=== PATIENT | male | born 1970 | race Caucasian/White ===

== ENCOUNTER 2017-11-26 09:43 | Inpatient (IN) | payer MEDICARE, OTHER ==
[~2017-11-26] VITALS: Ht 180.3 cm; Wt 73.3 kg
[~2017-11-26 09:43] MED LIST: LISI2.5T47 PO; MET50T PO; OXYC10TA44 PO; ZOLP10TA PO
[2017-11-26] MEDS ORDERED: SODIUM CHLORIDE 0.9% 1,000 ML IV ONE ×2 (10:15)
[2017-11-26] MEDS ORDERED: IOHEXOL 300 MG/ML 100ML BOTTLE IJ ONE (10:30)
[2017-11-26 10:38] LABS: Basophils # (auto) 0.1 uL; Eosinophils # (auto) 0.1 uL; Monocytes # (auto) 0.7 uL
[2017-11-26 10:41] LABS: Basophils % (auto) 0.4 % (0.0-2.0); Eosinophils % (auto) 0.5 % (0.0-7.0); Hematocrit 50.6 % (41.0-53.0); Hemoglobin 17.2 g/dL (13.5-17.5); Lymphocytes % (auto) 6.5 % (10.0-50.0); Mean Corpuscular Hemoglobin 28.3 pg (28.0-32.0); Mean Corpuscular Volume 83.2 fL (80.0-100.0); Monocytes % (auto) 4.6 % (0.0-12.0); Neutrophils # (auto) 13.5 uL; Nucleated Red Blood Cells % 0.4 %; Platelet Count (auto) 309 10^3/uL (140-450); Red Blood Cells 6.09 10^6/uL (4.5-5.90); Red Cell Distribution Width 14.1 % (11.8-14.3); White Blood Cell 15.3 10^3/uL (4.4-10.8)
[2017-11-26 10:50] LABS: INR 0.92 (0.9-1.15); Partial Thromboplastin Time 24.3 sec (22.64-33.71)
[2017-11-26] MEDS ORDERED: NALBUPHINE HCL 10 MG/1ml INJECTION IV ONE ×2 (11:15→14:00)
[2017-11-26 11:17] LABS: Alanine Aminotransferase 17 U/L (16-61); Albumin 3.8 g/dL (3.4-5.0); Alkaline Phosphatase 139 U/L (45-117); Anion Gap 13 (5-15); Aspartate Aminotransferase 20 U/L (15-37); BUN/Creatinine Ratio 9.8; Bilirubin, Total 0.8 mg/dL (0.2-1.0); Blood Urea Nitrogen 8 mg/dL (7-18); Calcium 8.9 mg/dL (8.5-10.1); Carbon Dioxide 25 mmol/L (21-32); Chloride 98 mmol/L (98-107); GFR African American 131 mL/min; GFR Non-African American 108 mL/min; Glucose 396 mg/dL (74-106); Lipase 97 U/L (73-393); Sodium 136 mmol/L (136-145); Total Protein 7.7 g/dL (6.4-8.2)
[2017-11-26] MEDS ORDERED: VANCOMYCIN 1GM/250ML 250 ML IV ONE (11:30)
[2017-11-26] MEDS ORDERED: GASTROGRAFIN 120 ML SOL ONE (11:31)
[2017-11-26] MEDS ORDERED: InsuLIN REG 1unit/0.01ml Soln (100units/ml) SC ONE (11:45)
[2017-11-26 12:10] LABS: Urine Bacteria NONE SEEN /hpf (None Seen); Urine Blood Negative /uL (Negative); Urine WBC <1 /hpf (0 - 3)
[2017-11-26] MEDS ORDERED: SODIUM CHLORIDE 0.9% 1,000 ML IV SCH (13:53)
[2017-11-26] MEDS ORDERED: ONDANSETRON HCL 4 MG/2 ML VIAL IV PRN (14:00)
[2017-11-26] MEDS ORDERED: MORPHINE SULFATE 4 MG/ML SYR/VIAL IV PRN (14:00)
[2017-11-26] MEDS ORDERED: VANCOMYCIN PER PHARMACY 0 MG IV SCH (14:15)
[2017-11-26] MEDS ORDERED: LEVOFLOXACIN 500MG 100 ML IV ONE (14:15)
[2017-11-26] MEDS ORDERED: DEXTROSE (50%) 50ML SYRG IV PRN (14:15)
[2017-11-26 14:32] VITALS: BP 100/80
[2017-11-26] MEDS ORDERED: PANTOPRAZOLE 40 MG/10 ML VIAL IV ONE (14:45)
[2017-11-26] MEDS ORDERED: FAMOTIDINE (10MG/ML) 2ML VL IV ONE (14:45)
[2017-11-26] MEDS ORDERED: SODIUM CHLORIDE 0.9% 2,000 ML IV ONE (14:45)
[2017-11-26] MEDS ORDERED: VANCOMYCIN 1GM/250ML 250 ML IV SCH (15:00)
[2017-11-26] MEDS: SODIUM CHLORIDE 0.9% 1,000 ML IV SCH (17:12)
[2017-11-26] MEDS: InsuLIN REG 1unit/0.01ml Soln (100units/ml) SC SCH ×2 (17:51→23:58)
[2017-11-26] MEDS: ACCU-CHEK COMFORT CURVE STRIP VI SCH ×2 (17:51→23:58)
[2017-11-26] MEDS: IPRATROPIUM BROM 0.5 MG/2.5ML INH SOL NEB SCH (18:00)
[2017-11-26] MEDS: ALBUTEROL SULF 2.5 MG/0.5ML(0.5%) NEB SOLN NEB SCH (18:00)
[2017-11-26] MEDS: NALBUPHINE HCL 10 MG/1ml INJECTION IV PRN (20:23)
[2017-11-26] MEDS: VANCOMYCIN 1GM/250ML 250 ML IV SCH (20:23)
[2017-11-26] MEDS ORDERED: METOPROLOL TARTRATE 1MG/1ML-5ML VIAL IV ONE (23:15)
[2017-11-27] VITALS (7 sets, daily range): BP systolic 112–148; BP diastolic 67–88
[2017-11-27] MEDS: SODIUM CHLORIDE 0.9% 1,000 ML IV SCH ×4 (01:22→21:08)
[2017-11-27] MEDS: NALBUPHINE HCL 10 MG/1ml INJECTION IV PRN ×5 (02:20→20:53)
[2017-11-27] MEDS: VANCOMYCIN 1GM/250ML 250 ML IV SCH (04:30)
[2017-11-27] MEDS: InsuLIN REG 1unit/0.01ml Soln (100units/ml) SC SCH ×3 (06:03→17:43)
[2017-11-27] MEDS: ACCU-CHEK COMFORT CURVE STRIP VI SCH ×3 (06:03→17:43)
[2017-11-27 06:06] LABS: Basophils # (auto) 0.1 uL; Basophils % (auto) 0.8 % (0.0-2.0); Eosinophils # (auto) 0.2 uL; Hematocrit 43.3 % (41.0-53.0); Hemoglobin 14.6 g/dL (13.5-17.5); Lymphocytes # (auto) 1.1 uL; Lymphocytes % (auto) 13.3 % (10.0-50.0); Mean Corpuscular Hemoglobin 28.5 pg (28.0-32.0); Mean Corpuscular Hgb Conc. 33.8 g/dL (32.0-36.0); Mean Corpuscular Volume 84.4 fL (80.0-100.0); Monocytes # (auto) 0.6 uL; Monocytes % (auto) 7.7 % (0.0-12.0); Neutrophils # (auto) 6.2 uL; Neutrophils % (auto) 76.2 % (37.0-80.0); Platelet Count (auto) 253 10^3/uL (140-450); Red Blood Cells 5.13 10^6/uL (4.5-5.90); Red Cell Distribution Width 14.2 % (11.8-14.3); White Blood Cell 8.1 10^3/uL (4.4-10.8)
[2017-11-27] MEDS: ALBUTEROL SULF 2.5 MG/0.5ML(0.5%) NEB SOLN NEB SCH ×5 (06:23→23:58)
[2017-11-27] MEDS: IPRATROPIUM BROM 0.5 MG/2.5ML INH SOL NEB SCH ×5 (06:23→23:58)
[2017-11-27 06:31] LABS: Albumin 3.1 g/dL (3.4-5.0); BUN/Creatinine Ratio 8.8; Bilirubin, Total 0.9 mg/dL (0.2-1.0); Calcium 7.9 mg/dL (8.5-10.1); Potassium 3.3 mmol/L (3.5-5.1); Total Protein 6.2 g/dL (6.4-8.2)
[2017-11-27] MEDS: PANTOPRAZOLE 40 MG/10 ML VIAL IV SCH (10:00)
[2017-11-27] MEDS: LEVOFLOXACIN 500MG 100 ML IV SCH (10:00)
[2017-11-27] MEDS: POTASSIUM CHL 20MEQ/100ML 100 ML IV SCH ×2 (12:21→14:54)
[2017-11-27] MEDS: metroNIDAZOLE 500MG/100ML 100 ML IV SCH ×2 (16:48→22:23)
[2017-11-27] MEDS ORDERED: FAMOTIDINE (10MG/ML) 2ML VL IV SCH (22:00)
[2017-11-28] MEDS: NALBUPHINE HCL 10 MG/1ml INJECTION IV PRN ×2 (03:00→08:43)
[2017-11-28 04:49] VITALS: BP 128/71
[2017-11-28] MEDS: metroNIDAZOLE 500MG/100ML 100 ML IV SCH (05:56)
[2017-11-28] MEDS: InsuLIN REG 1unit/0.01ml Soln (100units/ml) SC SCH ×3 (06:09→11:50)
[2017-11-28] MEDS: ACCU-CHEK COMFORT CURVE STRIP VI SCH ×3 (06:09→11:51)
[2017-11-28] MEDS: ALBUTEROL SULF 2.5 MG/0.5ML(0.5%) NEB SOLN NEB SCH ×2 (06:25→12:00)
[2017-11-28] MEDS: IPRATROPIUM BROM 0.5 MG/2.5ML INH SOL NEB SCH ×2 (06:25→12:00)
[2017-11-28 08:06] LABS: Basophils # (auto) 0.1 uL; Basophils % (auto) 0.8 % (0.0-2.0); Eosinophils # (auto) 0.2 uL; Eosinophils % (auto) 3.7 % (0.0-7.0); Hematocrit 42.2 % (41.0-53.0); Hemoglobin 14.3 g/dL (13.5-17.5); Lymphocytes # (auto) 1.2 uL; Lymphocytes % (auto) 19.4 % (10.0-50.0); Mean Corpuscular Hemoglobin 28.8 pg (28.0-32.0); Mean Corpuscular Hgb Conc. 33.9 g/dL (32.0-36.0); Mean Corpuscular Volume 84.9 fL (80.0-100.0); Monocytes # (auto) 0.6 uL; Monocytes % (auto) 9.8 % (0.0-12.0); Neutrophils # (auto) 4.2 uL; Neutrophils % (auto) 66.3 % (37.0-80.0); Nucleated Red Blood Cells % 0.2 %; Platelet Count (auto) 225 10^3/uL (140-450); Red Blood Cells 4.96 10^6/uL (4.5-5.90); Red Cell Distribution Width 14.3 % (11.8-14.3); White Blood Cell 6.4 10^3/uL (4.4-10.8)
[2017-11-28 08:15] LABS: Anion Gap 8 (5-15); Blood Urea Nitrogen 2 mg/dL (7-18); Calcium 8.2 mg/dL (8.5-10.1); Carbon Dioxide 27 mmol/L (21-32); Chloride 105 mmol/L (98-107); Cholesterol 223 mg/dL (< 200); GFR African American 168 mL/min; GFR Non-African American 139 mL/min; Glucose 238 mg/dL (74-106); HDL Cholesterol 31 mg/dL (40-59); Magnesium 2.5 mg/dL (1.6-2.6); Potassium 3.5 mmol/L (3.5-5.1); Sodium 140 mmol/L (136-145); Triglycerides 494 mg/dL (< 150)
[2017-11-28 09:00] VITALS: BP 123/70
[2017-11-28] MEDS: SODIUM CHLORIDE 0.9% 1,000 ML IV SCH (09:17)
[2017-11-28] MEDS: LEVOFLOXACIN 500MG 100 ML IV SCH (09:17)
[2017-11-28] MEDS: PANTOPRAZOLE 40 MG/10 ML VIAL IV SCH (09:17)
[2017-11-28] MEDS ORDERED: PANT40TA2 PO (11:40)
[2017-11-28] MEDS ORDERED: ATOR20TA PO (11:40)
[2017-11-28] MEDS ORDERED: POTASSIUM CHL 20 Meq TABLET PO ONE (11:45)
[2017-11-28] MEDS ORDERED: SODIUM CHLORIDE 0.9% 1,000 ML IV SCH (11:45)
[2017-11-28 12:59] VITALS: BP 123/70
[2017-11-28 14:00] VITALS: BP 126/86
[2017-11-28] MEDS ORDERED: PANTOPRAZOLE 40 MG TAB PO SCH (22:00)
[2018-01-29] MEDS ORDERED: METF500T PO (10:58)
[2018-01-29] MEDS ORDERED: GABA-339 PO (10:58)
[2018-01-29] MEDS ORDERED: DIAZ10TA PO (11:01)
[2018-01-29] MEDS ORDERED: IBUP800T24 PO (11:01)
[2018-01-29] MEDS ORDERED: HYDR-531 PO (11:02)
== END 2017-11-28 15:33 | disposition home health service (06) | DRG 872 ==
LOC: ER 09:43 → EDBD 09:43 → TELE 09:44 → TELE-CENTR 11-27 02:49
PROVIDERS: ADMIT Internal Medicine; ATTEND Internal Medicine
DX: A41.9 Sepsis, unspecified organism (principal); K56.609 Unspecified intestinal obstruction, unspecified as to partial versus complete obstruction; K76.0 Fatty (change of) liver, not elsewhere classified; E11.65 Type 2 diabetes mellitus with hyperglycemia; J44.9 Chronic obstructive pulmonary disease, unspecified; E78.5 Hyperlipidemia, unspecified; E87.6 Hypokalemia; I10 Essential (primary) hypertension; I25.10 Atherosclerotic heart disease of native coronary artery without angina pectoris; K80.20 Calculus of gallbladder without cholecystitis without obstruction; Z87.11 Personal history of peptic ulcer disease; Z95.0 Presence of cardiac pacemaker; Z90.49 Acquired absence of other specified parts of digestive tract; Z88.8 Allergy status to other drugs, medicaments and biological substances; Z88.5 Allergy status to narcotic agent; Z88.0 Allergy status to penicillin; Z88.6 Allergy status to analgesic agent; Z82.49 Family history of ischemic heart disease and other diseases of the circulatory system
CPT/HCPCS: 36415; 71045; 74177; 74250; 80048; 80053; 80061; 80202; 81001; 82962; 83036; 83605; 83690; 83735; 84484; 85025; 85610; 85730; 87040; 93005; 93306; 94640; 96361; 96365; 96372; 96375; 96376; C9113; J1815; J1956; J3480; J3490

== ENCOUNTER 2019-02-19 10:47 | Emergency (ER) | payer MEDICARE ==
[~2019-02-19] VITALS: Ht 180.3 cm; Wt 131.5 kg
[~2019-02-19 10:47] MED LIST changes: +ATOR20TA PO; +DIAZ10TA PO; +GABA-339 PO; +HYDR-531 PO; +IBUP800T24 PO; +METF500T PO; +PANT40TA2 PO
[2019-02-19 12:00] LABS: Basophils # (auto) 0.1 uL; Basophils % (auto) 0.7 % (0.0-2.0); Eosinophils # (auto) 0.1 uL; Eosinophils % (auto) 1.7 % (0.0-7.0); Hematocrit 48.6 % (41.0-53.0); Hemoglobin 16.6 g/dL (13.5-17.5); Lymphocytes % (auto) 13.3 % (10.0-50.0); Mean Corpuscular Hemoglobin 28.6 pg (28.0-32.0); Mean Corpuscular Hgb Conc. 34.1 g/dL (32.0-36.0); Mean Corpuscular Volume 83.9 fL (80.0-100.0); Monocytes # (auto) 0.6 uL; Monocytes % (auto) 7.2 % (0.0-12.0); Neutrophils % (auto) 77.1 % (37.0-80.0); Platelet Count (auto) 247 10^3/uL (140-450); Red Blood Cells 5.78 10^6/uL (4.5-5.90); Red Cell Distribution Width 13.5 % (11.8-14.3); White Blood Cell 7.8 10^3/uL (4.4-10.8)
[2019-02-19] MEDS ORDERED: ONDANSETRON HCL 4 MG/2 ML VIAL IV ONE (12:00)
[2019-02-19] MEDS ORDERED: MORPHINE SULFATE 4 MG/ML SYR/VIAL IV ONE (12:00)
[2019-02-19 12:20] LABS: Alanine Aminotransferase 19 U/L (16-61); Albumin 3.8 g/dL (3.4-5.0); Anion Gap 9 (5-15); Aspartate Aminotransferase 21 U/L (15-37); BUN/Creatinine Ratio 14.3; Blood Urea Nitrogen 10 mg/dL (7-18); Calcium 8.7 mg/dL (8.5-10.1); Carbon Dioxide 26 mmol/L (21-32); Chloride 104 mmol/L (98-107); GFR African American 155 mL/min; GFR Non-African American 128 mL/min; Glucose 194 mg/dL (74-106); Sodium 139 mmol/L (136-145)
[2019-02-19 12:25] LABS: Alkaline Phosphatase 84 U/L (45-117); Bilirubin, Total 1.2 mg/dL (0.2-1.0)
[2019-02-19] MEDS ORDERED: POTASSIUM EFFERVESENT TAB 25 MEQ PO ONE (13:15)
[2019-02-19 14:00] VITALS: BP 150/77
== END 2019-02-19 14:52 | disposition home or self-care (01) ==
LOC: EDBD 10:47 → ER 10:47 → TELE 14:35 → UNDOADMIN 14:35
DX: R10.84 Generalized abdominal pain (principal); J44.9 Chronic obstructive pulmonary disease, unspecified; E11.9 Type 2 diabetes mellitus without complications; E78.5 Hyperlipidemia, unspecified; I10 Essential (primary) hypertension; Z90.49 Acquired absence of other specified parts of digestive tract; Z95.0 Presence of cardiac pacemaker; Z88.8 Allergy status to other drugs, medicaments and biological substances; Z88.5 Allergy status to narcotic agent; Z88.0 Allergy status to penicillin; Z79.84 Long term (current) use of oral hypoglycemic drugs; Z79.899 Other long term (current) drug therapy
CPT/HCPCS: 36415; 71045; 74176; 80053; 84484; 85025; 93005; 96374; 96375; 99284; J2270; J2405

== ENCOUNTER 2019-05-05 14:30 | Inpatient (IN) | payer MEDICARE ==
[~2019-05-05] VITALS: Ht 182.9 cm; Wt 136.7 kg
[2019-05-05 15:02] LABS: Basophils # (auto) 0.1 uL; Basophils % (auto) 0.8 % (0.0-2.0); Eosinophils # (auto) 0.2 uL; Lymphocytes # (auto) 2.1 uL; Red Cell Distribution Width 14.2 % (11.8-14.3)
[2019-05-05 15:05] LABS: Eosinophils % (auto) 1.3 % (0.0-7.0); Hematocrit 53.3 % (41.0-53.0); Hemoglobin 18.1 g/dL (13.5-17.5); Lymphocytes % (auto) 13.9 % (10.0-50.0); Mean Corpuscular Hemoglobin 28.5 pg (28.0-32.0); Mean Corpuscular Hgb Conc. 33.9 g/dL (32.0-36.0); Mean Corpuscular Volume 84.1 fL (80.0-100.0); Monocytes % (auto) 6.7 % (0.0-12.0); Neutrophils # (auto) 11.6 uL; Neutrophils % (auto) 77.3 % (37.0-80.0); Nucleated Red Blood Cells % 0.2 %; Platelet Count (auto) 269 10^3/uL (140-450); Red Blood Cells 6.34 10^6/uL (4.5-5.90)
[2019-05-05 15:20] LABS: Alanine Aminotransferase 22 U/L (16-61); Albumin 4.3 g/dL (3.4-5.0); Anion Gap 8 (5-15); Aspartate Aminotransferase 20 U/L (15-37); BUN/Creatinine Ratio 17.1; Blood Urea Nitrogen 20 mg/dL (7-18); Calcium 9.4 mg/dL (8.5-10.1); Carbon Dioxide 23 mmol/L (21-32); Chloride 111 mmol/L (98-107); GFR African American 86 mL/min; GFR Non-African American 71 mL/min; Potassium 4.2 mmol/L (3.5-5.1); Sodium 142 mmol/L (136-145)
[2019-05-05 15:24] LABS: Alkaline Phosphatase 95 U/L (45-117); Bilirubin, Total 0.9 mg/dL (0.2-1.0); Glucose 171 mg/dL (74-106); Total Protein 8.1 g/dL (6.4-8.2)
[2019-05-05] MEDS ORDERED: FUROSEMIDE 40 MG/4 ML VIAL IV ONE (17:00)
[2019-05-05] MEDS ORDERED: ACETAMINOPHEN 500 MG TAB PO PRN (17:00)
[2019-05-05] MEDS ORDERED: LEVOFLOXACIN 500MG 100 ML IV ONE (17:00)
[2019-05-05] MEDS ORDERED: NITROGLYCERIN 0.4 MG SL TAB SL PRN (17:00)
[2019-05-05] MEDS ORDERED: MORPHINE SULF INJ 2 MG/ML SYRINGE 1ML IV PRN (17:00)
[2019-05-05] MEDS ORDERED: ONDANSETRON HCL 4 MG/2 ML VIAL IV PRN (17:00)
[2019-05-05] MEDS ORDERED: hydrALAZINE HCL 20 MG/ML VL IV PRN (17:00)
[2019-05-05] MEDS ORDERED: DEXTROSE (50%) 50ML SYRG IV PRN (17:15)
[2019-05-05] MEDS ORDERED: ALBUTEROL SULF 2.5 MG/0.5ML(0.5%) NEB SOLN NEB PRN (17:15)
[2019-05-05] MEDS ORDERED: HYDROmorphone HCL 2 MG/ML VL IV ONE (17:15)
[2019-05-05] MEDS ORDERED: IPRATROPIUM BROM 0.5 MG/2.5ML INH SOL NEB PRN (17:15)
[2019-05-05 17:39] LABS: Cholesterol 251 mg/dL (< 200); Triglycerides 311 mg/dL (< 150)
[2019-05-05 17:41] LABS: HDL Cholesterol 51 mg/dL (40-59); LDL Cholesterol 171 mg/dL (< 100)
[2019-05-05 17:43] LABS: Urine Bacteria NONE SEEN /hpf (None Seen); Urine Blood Negative /uL (Negative); Urine Hyaline Cast FEW /lpf (0 - 2); Urine Mucus FEW (None Seen); Urine Specific Gravity 1.017 (1.001-1.035); Urine WBC 1 /hpf (0 - 3)
[2019-05-05 18:32] VITALS: BP 139/72
--- NOTE | 2019-05-05 18:32 | NUR ---
Respiratory note: PT RECIEVED ON NC2L. PT AWAKE AND ALERT AT THIS TIME. PT STATED HE WAS SOB AND ASKED IF WANTING BREATHING TX AND REFUSED. SPO2 97%, HR 101, RR 20 . BS CLR/DIM T/O.
--- NOTE | 2019-05-05 18:45 | NUR ---
Telemetry admit from [facility] admitted to Telemetry unit, following verbal report from ED nurse. Patient oriented to Gloria Grey RN, unit, room, bed, and unit policies regarding patient care and visiting hours. Patient now on continuous telemetry monitoring, tele box #[id number]. Telemetry reading on arrival to unit is NSR. Patient placed on bedside oxygen, weighed by bedscale and encouraged to call if they need something. All questions and concerns addressed, patient verbalized understanding. Pt denies chest pain at this time. No other c/o pain or discomfort. Note:
--- NOTE | 2019-05-05 19:25 | NUR ---
RECEIVED PATIENT LYING IN BED, AWAKE, ALERT, ORIENTED X4, SPEAKS CLEARLY. NO S/S OF DISTRESS, DENIES SOB AND CHEST PAIN. ORIENTED ON PLAN OF CARE. BED IS LOCKED AND IN LOWEST LEVEL, SIDE RAILS UP X2, CALL LIGHT WITHIN REACH. WILL CONTINUE TO MONITOR.
[2019-05-05] MEDS: MORPHINE SULF INJ 2 MG/ML SYRINGE 1ML IV PRN (19:27)
--- NOTE | 2019-05-05 19:30 | NUR ---
RT AT BEDSIDE FOR CPAP INITIATION
[2019-05-05 20:00] VITALS: BP 128/77
[2019-05-05 22:00] VITALS: BP 128/77
[2019-05-05] MEDS: DOCUSATE SOD 100 MG CAP PO SCH (22:00)
[2019-05-05] MEDS: METOPROLOL TARTRATE 25 MG TAB PO SCH (22:01)
[2019-05-05] MEDS: ATORVASTATIN 20 MG TAB PO SCH (22:01)
[2019-05-05] MEDS: HYDROcodone-ACET 5/325MG TAB PO PRN (22:02)
[2019-05-05] MEDS: InsuLIN REG 1unit/0.01ml Soln (100units/ml) SC SCH (22:02)
[2019-05-05] MEDS: ACCU-CHEK COMFORT CURVE STRIP VI SCH (22:02)
[2019-05-06] MEDS: MORPHINE SULF INJ 2 MG/ML SYRINGE 1ML IV PRN ×6 (01:56→23:37)
[2019-05-06 05:00] VITALS: BP 137/84
[2019-05-06 06:06] LABS: Basophils # (auto) 0.1 uL; Basophils % (auto) 0.8 % (0.0-2.0); Eosinophils # (auto) 0.1 uL; Lymphocytes # (auto) 1.9 uL; Mean Corpuscular Volume 84.9 fL (80.0-100.0); Monocytes # (auto) 0.9 uL
[2019-05-06 06:09] LABS: Eosinophils % (auto) 1.2 % (0.0-7.0); Hematocrit 52.2 % (41.0-53.0); Hemoglobin 17.6 g/dL (13.5-17.5); Lymphocytes % (auto) 18.2 % (10.0-50.0); Mean Corpuscular Hemoglobin 28.6 pg (28.0-32.0); Mean Corpuscular Hgb Conc. 33.7 g/dL (32.0-36.0); Monocytes % (auto) 8.9 % (0.0-12.0); Neutrophils # (auto) 7.3 uL; Neutrophils % (auto) 70.9 % (37.0-80.0); Nucleated Red Blood Cells % 0.6 %; Platelet Count (auto) 258 10^3/uL (140-450); Red Blood Cells 6.15 10^6/uL (4.5-5.90); Red Cell Distribution Width 14.3 % (11.8-14.3); White Blood Cell 10.3 10^3/uL (4.4-10.8)
[2019-05-06 06:22] LABS: Carbon Dioxide 21 mmol/L (21-32); Chloride 105 mmol/L (98-107); Potassium 4.3 mmol/L (3.5-5.1); Sodium 138 mmol/L (136-145)
[2019-05-06 06:23] LABS: Anion Gap 12 (5-15); Blood Urea Nitrogen 32 mg/dL (7-18); Calcium 8.9 mg/dL (8.5-10.1); Glucose 213 mg/dL (74-106)
[2019-05-06 06:25] LABS: BUN/Creatinine Ratio 25.4; GFR African American 79 mL/min; GFR Non-African American 65 mL/min
[2019-05-06] MEDS: InsuLIN REG 1unit/0.01ml Soln (100units/ml) SC SCH ×4 (06:38→21:34)
[2019-05-06] MEDS: ACCU-CHEK COMFORT CURVE STRIP VI SCH ×4 (06:38→21:34)
--- NOTE | 2019-05-06 07:00 | NUR ---
Opening Shift Note Assumed care of patient, sleeping with cpap on. No S/S of distress/SOB or pain. Instructed on POC and to call for assist PRN, will continue to monitor for changes Q1hr and PRN.
[2019-05-06 08:00] VITALS: BP 139/82
--- NOTE | 2019-05-06 09:45 | NUR ---
Respiratory note: ROUTINE PRN MN TX ASSESSMENT DONE. HR 79, RR 19, POX 93%, BREATH SOUNDS ARE CLEAR. NO SOB OR DISTRESS NOTED. PT WAS NOTIFY TO HAVE RT PAGE FOR MN TX. PT IS NOT WEARING CPAP AT THIS TIME BUT DOES WEAR IT TO SLEEP.
[2019-05-06] MEDS ORDERED: ASPirin-EC 81 mg tab PO SCH (10:00)
[2019-05-06] MEDS: DOCUSATE SOD 100 MG CAP PO SCH ×2 (10:00→21:34)
[2019-05-06] MEDS: METOPROLOL TARTRATE 25 MG TAB PO SCH ×2 (11:08→22:00)
[2019-05-06] MEDS: LISINOPRIL 10 MG TAB PO SCH (11:08)
[2019-05-06] MEDS: FAMOTIDINE 20 MG TAB PO SCH (11:08)
[2019-05-06 13:00] VITALS: BP 140/88
[2019-05-06] MEDS: ALPRAZolam 0.25 MG TAB PO PRN ×2 (15:35→23:35)
[2019-05-06 17:00] VITALS: BP 102/51
--- NOTE | 2019-05-06 18:35 | NUR ---
SPOKE WITH BOTH [employer] AND [employer] TO SEE IF THE PATIENT HAS RECEIVED A PACEMAKER THROUGH THEM. BOTH THE COMPANIES SAID THAT THEY DO NOT HAVE RECORD OF THE PATIENT. JAN MADE AWARE.
--- NOTE | 2019-05-06 20:36 | NUR ---
Respiratory note: PT SEEN AND ASSESSED FOR PRN MED NEB TX AT 2035. TX NOT INDICATED AT THIS TIME. PT DENIES ANY SIGNS OF DISTRESS. HE WAS WEARING HIS CPAP MACHINE WHEN ENTERING THE ROOM AND TOLERATING IT FINE. BREATH SOUNDS WERE CLEAR AND DIMINISHED. PT AWARE TO CALL FOR RT IF DEVELOPS ANY SOB OR WISHES TO COME OFF OF HIS CPAP.
[2019-05-06 21:30] VITALS: BP 110/69
[2019-05-06] MEDS: ATORVASTATIN 20 MG TAB PO SCH (21:34)
[2019-05-07] MEDS: MORPHINE SULF INJ 2 MG/ML SYRINGE 1ML IV PRN ×5 (03:48→21:39)
[2019-05-07 04:30] VITALS: BP 113/69
[2019-05-07] MEDS: ACCU-CHEK COMFORT CURVE STRIP VI SCH ×4 (06:36→21:37)
[2019-05-07] MEDS: InsuLIN REG 1unit/0.01ml Soln (100units/ml) SC SCH ×4 (06:36→21:37)
--- NOTE | 2019-05-07 06:51 | NUR ---
Respiratory note: PATIENT FOUND ON CPAP 14, WITH A NASAL MASK. HE IS ASLEEP AND TOLERATING CPAP WELL. NO SKIN BREAKDOWN NOTED, NO ALARMS TO CHECK, UNIT PLUGGED INTO RED OUTLET, AND BEDSIDE POX IS ON AND ATTACHED TO PATIENT. WILL CONTINUE TO ASSESS PATIENT AND CPAP FUNCTION.
--- NOTE | 2019-05-07 07:28 | NUR ---
CARE ENDORSED TO AM SHIFT RN
--- NOTE | 2019-05-07 07:30 | NUR ---
Opening Shift Note Assumed care of patient, sleeping comfortably with CPAP on. No S/S of distress/SOB or pain. Instructed on POC and to call for assist PRN, will continue to monitor for changes Q1hr and PRN.
[2019-05-07] MEDS ORDERED: ADENOSINE 114 MG in GIVE UN-DILUTED 0 ML IV STA (08:22)
--- NOTE | 2019-05-07 09:30 | NUR ---
Patient off unit to cardiolite stress test. Morning medications held until the patient returns to his room.
[2019-05-07 09:55] VITALS: BP 122/75
[2019-05-07] MEDS: DOCUSATE SOD 100 MG CAP PO SCH ×2 (10:00→21:40)
--- NOTE | 2019-05-07 10:00 | NUR ---
Respiratory note: PATIENT ASSESSED FOR PRN TX. MED-NEB NOT INDICATED AT THIS TIME PATIENT DENIES NEED AND IS SHOWING NO SIGNS OF RESPIRATORY DISTRESS. SPO2 94% ON 2LPM N/C
[2019-05-07] MEDS: METOPROLOL TARTRATE 25 MG TAB PO SCH ×2 (12:58→21:36)
[2019-05-07] MEDS: FAMOTIDINE 20 MG TAB PO SCH (12:58)
[2019-05-07] MEDS: LISINOPRIL 10 MG TAB PO SCH (12:59)
[2019-05-07 13:00] VITALS: BP 111/69
[2019-05-07] MEDS: ALPRAZolam 0.25 MG TAB PO PRN (13:11)
[2019-05-07 16:34] VITALS: BP 115/64
--- NOTE | 2019-05-07 19:28 | NUR ---
ASSESSED PT @ THIS TIME FOR PRN MED NEB TX. PT IS AWAKE AND ALERT AND RESTING COMFORTABLY IN BED. HE STATES HIS BREATHING IS DOING FINE. NO DISTRESS NOTED. CURRENTLY ON A R/A SPO2 95%, HR 80 AND RR 18. BS ARE DIMINISHED T/O. NO DISTRESS NOTED. HE IS AWARE TO CALL IF HE FEELS SOB.
[2019-05-07] MEDS: HYDROcodone-ACET 5/325MG TAB PO PRN (19:39)
[2019-05-07] MEDS: ATORVASTATIN 20 MG TAB PO SCH (21:37)
[2019-05-07 22:00] VITALS: BP 129/65
--- NOTE | 2019-05-07 22:55 | NUR ---
PATIENT AGREED TO BE NPO AFTER MIDNIGHT FOR POSSIBLE ANGIOGRAM TOMORROW
[2019-05-08] MEDS: MORPHINE SULF INJ 2 MG/ML SYRINGE 1ML IV PRN ×2 (02:08→06:37)
[2019-05-08] MEDS: ALPRAZolam 0.25 MG TAB PO PRN (02:57)
[2019-05-08 04:30] VITALS: BP 126/57
--- NOTE | 2019-05-08 05:45 | NUR ---
Respiratory note: ROUTINE PRN TX ASSESSMENT DONE. HR 67, RR 16, POX 97% ON RA, BREATH SOUNDS ARE CLEAR. NO SOB OR DISTRESS NOTED. PT WAS NOTIFY TO HAVE RT PAGE FOR MN TX IF NEEDED.
[2019-05-08] MEDS: ACCU-CHEK COMFORT CURVE STRIP VI SCH ×2 (06:32→11:30)
[2019-05-08] MEDS: InsuLIN REG 1unit/0.01ml Soln (100units/ml) SC SCH ×2 (06:32→11:30)
[2019-05-08 07:28] LABS: INR 0.95 (0.9-1.15); Partial Thromboplastin Time 25.9 sec (23.64-32.05)
[2019-05-08 07:30] LABS: Basophils # (auto) 0.1 uL; Basophils % (auto) 0.7 % (0.0-2.0); Eosinophils # (auto) 0.2 uL; Eosinophils % (auto) 1.8 % (0.0-7.0); Hematocrit 49.8 % (41.0-53.0); Hemoglobin 16.8 g/dL (13.5-17.5); Lymphocytes # (auto) 2.5 uL; Lymphocytes % (auto) 26.6 % (10.0-50.0); Mean Corpuscular Hemoglobin 28.8 pg (28.0-32.0); Mean Corpuscular Hgb Conc. 33.7 g/dL (32.0-36.0); Mean Corpuscular Volume 85.4 fL (80.0-100.0); Monocytes # (auto) 0.9 uL; Monocytes % (auto) 9.2 % (0.0-12.0); Neutrophils # (auto) 5.7 uL; Neutrophils % (auto) 61.7 % (37.0-80.0); Nucleated Red Blood Cells % 0.2 %; Platelet Count (auto) 233 10^3/uL (140-450); Red Blood Cells 5.83 10^6/uL (4.5-5.90); Red Cell Distribution Width 14.3 % (11.8-14.3); White Blood Cell 9.3 10^3/uL (4.4-10.8)
[2019-05-08 07:38] LABS: BUN/Creatinine Ratio 31.9; Calcium 9.3 mg/dL (8.5-10.1); Potassium 4.5 mmol/L (3.5-5.1)
--- NOTE | 2019-05-08 07:40 | NUR ---
CARE ENDORSED TO AM SHIFT RN
--- NOTE | 2019-05-08 08:00 | NUR ---
Opening Shift Note Assumed care of patient, awake and alert X4. No S/S of distress/SOB. Pain 10/10, MEDICATED. Patient on TELE #21, Normal sinus rhythm 60s. IV to left hand and right hand, both 20g, patent and saline locked. Instructed on POC and to call for assist PRN. will continue to monitor for changes Q1hr and PRN. Bed is at lowest position, wine pasteurizer ails up x2. Call light within reach.
[2019-05-08] MEDS: HYDROcodone-ACET 5/325MG TAB PO PRN (08:44)
[2019-05-08 09:00] VITALS: BP 113/69
--- NOTE | 2019-05-08 09:00 | NUR ---
[employer] Consultant Patient taken to manager cardiac cath at 0900 via bed. No distress noted.
[2019-05-08] MEDS ORDERED: MIDAZOLAM HCL 1MG/1ML-2 ML VIAL ONE (09:42)
[2019-05-08] MEDS ORDERED: SODIUM CHL 0.9% 0 ML ONE (09:42)
[2019-05-08] MEDS ORDERED: fentaNYL CITRATE 100 MCG/2 ML VL ONE (09:42)
[2019-05-08] MEDS ORDERED: ANGIOMAX 250 MG VIAL IV ONE (09:42)
[2019-05-08] MEDS ORDERED: IOHEXOL 350 MG/ML 100ML IJ ONE ×3 (09:54→10:25)
[2019-05-08] MEDS ORDERED: LIDOCAINE 2%HCL (LOCAL ANESTH.) INJ 20ML MDV ONE (09:54)
[2019-05-08] MEDS: LISINOPRIL 10 MG TAB PO SCH (10:00)
[2019-05-08] MEDS: METOPROLOL TARTRATE 25 MG TAB PO SCH (10:00)
--- NOTE | 2019-05-08 12:27 | NUR ---
ROUNDS Dr Greene at bedside for rounds, new orders received and followed through. Patient updated on plan of care, verbalized understanding.
[2019-05-08 13:00] VITALS: BP 106/70
[2019-05-08 14:14] VITALS: BP 106/70
== END 2019-05-08 15:15 | disposition home or self-care (01) | DRG 286 ==
LOC: EDBD 14:30 → ER 14:34 → TELE 14:35 → TELE-WESTW 18:29
PROVIDERS: ADMIT Nurse Practitioner Acute Care; ATTEND Internal Medicine
PROC: 5A09457 Assistance with Respiratory Ventilation, 24-96 Consecutive Hours, Continuous Positive Airway Pressure (ICD-10-PCS; 2019-05-05)
PROC: 4A023N7 Measurement of Cardiac Sampling and Pressure, Left Heart, Percutaneous Approach (ICD-10-PCS; principal; 2019-05-08)
PROC: B2111ZZ Fluoroscopy of Multiple Coronary Arteries using Low Osmolar Contrast (ICD-10-PCS; 2019-05-08)
PROC: B2151ZZ Fluoroscopy of Left Heart using Low Osmolar Contrast (ICD-10-PCS; 2019-05-08)
DX: I25.119 Atherosclerotic heart disease of native coronary artery with unspecified angina pectoris (principal); I50.43 Acute on chronic combined systolic (congestive) and diastolic (congestive) heart failure; I13.0 Hypertensive heart and chronic kidney disease with heart failure and stage 1 through stage 4 chronic kidney disease, or unspecified chronic kidney disease; Z68.41 Body mass index [BMI] 40.0-44.9, adult; I42.1 Obstructive hypertrophic cardiomyopathy; D72.829 Elevated white blood cell count, unspecified; N18.3 Chronic kidney disease, stage 3 (moderate); E78.5 Hyperlipidemia, unspecified; F41.9 Anxiety disorder, unspecified; R22.1 Localized swelling, mass and lump, neck; J44.9 Chronic obstructive pulmonary disease, unspecified; E11.22 Type 2 diabetes mellitus with diabetic chronic kidney disease; E66.9 Obesity, unspecified; E86.0 Dehydration; Z79.899 Other long term (current) drug therapy; Z79.4 Long term (current) use of insulin; Z83.3 Family history of diabetes mellitus; Z82.49 Family history of ischemic heart disease and other diseases of the circulatory system; Z95.810 Presence of automatic (implantable) cardiac defibrillator
CPT/HCPCS: 36415; 71045; 76536; 78452; 80048; 80053; 80061; 81001; 82962; 83036; 83880; 84484; 85025; 85610; 85730; 86141; 93005; 93017; 93306; 93458; 94660; 94761; 96365; 96375; G0378; J0153; J1815; J1956; J2250; J2405

== ENCOUNTER 2020-04-29 14:38 | Inpatient (IN) | payer MEDICARE ==
[~2020-04-29] VITALS: Ht 180.3 cm; Wt 130.9 kg
[~2020-04-29 14:38] MED LIST changes: -OXYC10TA44 PO; -ZOLP10TA PO
[2020-04-29 15:49] LABS: Urine Bacteria NONE SEEN /hpf (None Seen); Urine Blood 2+ /uL (Negative); Urine Specific Gravity 1.024 (1.001-1.035); Urine WBC 1 /hpf (0 - 3)
[2020-04-29 15:59] LABS: Alcohol, Urine < 3.0 mg/dL (0-10); Amphetamine Screen, Urine NEGATIVE (NEGATIVE); Barbiturate Scree,Urine NEGATIVE (NEGATIVE); Benzodiazephine Screen, Urine NEGATIVE (NEGATIVE); Cannabinoid Screen, Urine NEGATIVE (NEGATIVE); Cocaine Screen, Urine NEGATIVE (NEGATIVE); Opiate Scree,Urine NEGATIVE (NEGATIVE); Phencyclidine Screen, Urine NEGATIVE (NEGATIVE)
[2020-04-29 16:22] LABS: Red Blood Cells 4.78 10^6/uL (4.5-5.90)
[2020-04-29 16:25] LABS: Hematocrit 45.2 % (41.0-53.0); Hemoglobin 13.5 g/dL (13.5-17.5); Mean Corpuscular Hemoglobin 28.2 pg (28.0-32.0); Mean Corpuscular Hgb Conc. 29.8 g/dL (32.0-36.0); Mean Corpuscular Volume 94.5 fL (80.0-100.0); Platelet Count (auto) 138 10^3/uL (140-450); Red Cell Distribution Width 17.1 % (11.8-14.3); White Blood Cell 16.8 10^3/uL (4.4-10.8)
[2020-04-29] MEDS ORDERED: SODIUM CHLORIDE 0.9% 3,000 ML IV ONE (16:30)
[2020-04-29 16:33] LABS: Basophils % (manual) 0 (0.0-2.0); Blast Cells 0; Eosinophils % (manual) 0 (0-7); Metamyelocytes % 0; Myelocytes % 0; Promyelocytes % 0
[2020-04-29 16:36] LABS: INR 1.07 (0.9-1.15); Partial Thromboplastin Time 26.8 sec (23.64-32.05)
[2020-04-29 16:38] LABS: Albumin 2.6 g/dL (3.4-5.0); Calcium 8.9 mg/dL (8.5-10.1)
[2020-04-29 16:42] LABS: Total Protein 6.7 g/dL (6.4-8.2)
[2020-04-29 16:46] LABS: Bilirubin, Total 0.8 mg/dL (0.2-1.0)
[2020-04-29 16:59] LABS: BUN/Creatinine Ratio 12.9; Potassium 2.7 mmol/L (3.5-5.1)
[2020-04-29] MEDS ORDERED: POTASSIUM CHL 20MEQ/100ML 300 ML IV ONE (17:09)
[2020-04-29] MEDS ORDERED: POTASSIUM EFFERVESENT TAB 25 MEQ PO ONE (17:15)
[2020-04-29] MEDS: POTASSIUM CHL 20MEQ/100ML 100 ML IV SCH ×3 (17:24→21:36)
[2020-04-29 17:39] LABS: Band Neutrophils % (manual) 6; Lymphocytes % (manual) 2 (10.0-50.0); Monocytes % (manual) 5 (0-12); Reactive Lymphocytes 1
[2020-04-29] MEDS: SODIUM CHLORIDE 0.9% 1,000 ML IV SCH ×2 (18:24→20:30)
[2020-04-29] MEDS ORDERED: InsuLIN R (HUMAN) 100 UNITS in SODIUM CHL 0.9% 99 ML IV SCH (18:24)
[2020-04-29] MEDS ORDERED: INSULIN LANTUS (GLARGINE) 1 /0.01ml (100units/ml) SC ONE (18:30)
[2020-04-29] MEDS ORDERED: DEXTROSE (50%) 50ML SYRG IV PRN ×2 (18:30→21:45)
[2020-04-29 19:22] LABS: Basophils # (auto) 0 10 ^3/uL (0-0.2); Basophils % (auto) 0.1 % (0.0-2.0); Eosinophils # (auto) 0 10 ^3/uL (0-0.8); Hematocrit 39.1 % (41.0-53.0); Hemoglobin 12.9 g/dL (13.5-17.5); Lymphocytes # (auto) 0.5 10 ^3/uL (0.4-5.4); Lymphocytes % (auto) 3.6 % (10.0-50.0); Mean Corpuscular Hemoglobin 28.6 pg (28.0-32.0); Mean Corpuscular Hgb Conc. 32.9 g/dL (32.0-36.0); Mean Corpuscular Volume 86.8 fL (80.0-100.0); Monocytes % (auto) 7.5 % (0.0-12.0); Neutrophils # (auto) 11.6 10 ^3/uL (1.6-8.6); Neutrophils % (auto) 88.8 % (37.0-80.0); Nucleated Red Blood Cells % 0.1 %; Platelet Count (auto) 134 10^3/uL (140-450); Red Cell Distribution Width 15.3 % (11.8-14.3); White Blood Cell 13.1 10^3/uL (4.4-10.8)
[2020-04-29 19:45] LABS: Calcium 8.3 mg/dL (8.5-10.1); Magnesium 2.6 mg/dL (1.6-2.6)
[2020-04-29 19:53] LABS: Phosphorus 2.5 mg/dL (2.5-4.90)
[2020-04-29 20:19] LABS: Potassium 2.9 mmol/L (3.5-5.1)
[2020-04-29] MEDS: ACCU-CHEK COMFORT CURVE STRIP VI SCH ×3 (20:27→22:48)
[2020-04-29] MEDS ORDERED: DOCUSATE SOD 100 MG CAP PO PRN (21:45)
[2020-04-29] MEDS ORDERED: ACETAMINOPHEN 325 MG TAB PO PRN (21:45)
[2020-04-29] MEDS ORDERED: ONDANSETRON HCL 4 MG/2 ML VIAL IV PRN (21:45)
[2020-04-29] MEDS ORDERED: SODIUM CHLORIDE 0.9% 1,000 ML IV SCH (22:24)
[2020-04-30] MEDS: SODIUM CHLORIDE 0.9% 1,000 ML IV SCH ×2 (00:24→07:07)
[2020-04-30] MEDS: ACCU-CHEK COMFORT CURVE STRIP VI SCH ×12 (00:41→21:07)
[2020-04-30 01:54] LABS: BUN/Creatinine Ratio 18.5; Calcium 8.2 mg/dL (8.5-10.1); Potassium 3.2 mmol/L (3.5-5.1)
[2020-04-30] MEDS: MORPHINE SULF INJ 2 MG/ML SYRINGE 1ML IV PRN ×5 (03:29→23:52)
[2020-04-30] MEDS: InsuLIN REG 1unit/0.01ml Soln (100units/ml) SC SCH ×6 (04:00→21:06)
[2020-04-30 06:33] LABS: Basophils # (auto) 0 10 ^3/uL (0-0.2); Basophils % (auto) 0.2 % (0.0-2.0); Eosinophils # (auto) 0 10 ^3/uL (0-0.8); Eosinophils % (auto) 0.1 % (0.0-7.0); Hematocrit 36.5 % (41.0-53.0); Hemoglobin 12.6 g/dL (13.5-17.5); Lymphocytes # (auto) 0.8 10 ^3/uL (0.4-5.4); Lymphocytes % (auto) 5.2 % (10.0-50.0); Mean Corpuscular Hemoglobin 28.5 pg (28.0-32.0); Mean Corpuscular Hgb Conc. 34.5 g/dL (32.0-36.0); Mean Corpuscular Volume 82.6 fL (80.0-100.0); Monocytes # (auto) 0.9 10 ^3/uL (0-1.3); Monocytes % (auto) 5.8 % (0.0-12.0); Neutrophils # (auto) 13.1 10 ^3/uL (1.6-8.6); Neutrophils % (auto) 88.7 % (37.0-80.0); Nucleated Red Blood Cells % 0.5 %; Platelet Count (auto) 128 10^3/uL (140-450); Red Blood Cells 4.42 10^6/uL (4.5-5.90); Red Cell Distribution Width 14.7 % (11.8-14.3); White Blood Cell 14.8 10^3/uL (4.4-10.8)
[2020-04-30 06:50] LABS: Chloride 114 mmol/L (98-107); Sodium 143 mmol/L (136-145)
[2020-04-30 07:06] LABS: Alanine Aminotransferase 20 U/L (16-61); Alkaline Phosphatase 154 U/L (45-117); Anion Gap 5 (5-15); Aspartate Aminotransferase 20 U/L (15-37); BUN/Creatinine Ratio 21.4; Bilirubin, Total 0.8 mg/dL (0.2-1.0); Blood Urea Nitrogen 21 mg/dL (7-18); Carbon Dioxide 24 mmol/L (21-32); Cholesterol 161 mg/dL (< 200); Creatine Kinase IFCC 73 U/L (39-308); GFR African American 105 mL/min; GFR Non-African American 87 mL/min; Glucose 264 mg/dL (74-106); HDL Cholesterol 9 mg/dL (40-59); Magnesium 2.5 mg/dL (1.6-2.6); Total Protein 5.3 g/dL (6.4-8.2); Triglycerides 638 mg/dL (< 150)
[2020-04-30] MEDS ORDERED: INSULIN LANTUS (GLARGINE) 1 /0.01ml (100units/ml) SC ONE (10:00)
[2020-04-30] MEDS ORDERED: POTASSIUM CHL 20 Meq TABLET PO ONE (10:00)
[2020-04-30] MEDS ORDERED: POTASSIUM CHLORIDE 20 MEQ, LIDOCAINE 1% (LOCAL ANESTH.) 2 ML in SODIUM CHL 0.9% 100 ML IV ONE (10:00)
[2020-04-30] MEDS: ENOXAPARIN SOD 40 MG/0.4 ML SYRINGE SC SCH (11:09)
--- NOTE | 2020-04-30 12:00 | NUR ---
patient arrived to room, patient alert and oriented x 4, able to transfer on his own from wheelchair to bed. Patient has potassium IV connected. Patient has lawler present, and is is complaining of chronic pain.
[2020-04-30 13:00] VITALS: BP 147/81
[2020-04-30 13:36] LABS: Calcium 7.8 mg/dL (8.5-10.1); Potassium 3.4 mmol/L (3.5-5.1)
[2020-04-30 16:06] VITALS: BP 147/81
[2020-04-30 17:00] VITALS: BP 137/84
--- NOTE | 2020-04-30 19:35 | NUR ---
Opening Shift Note Assumed care of patient, awake and alert. No S/S of distress/SOB or pain. Safety measures in place bed in lowest position, side rails up x2, and call light within reach. Instructed on POC and to call for assist PRN, will continue to monitor for changes Q1hr and PRN.
[2020-04-30] MEDS ORDERED: VANCOMYCIN PER PHARMACY 0 MG IV SCH (21:45)
[2020-04-30 22:00] VITALS: BP 129/69
[2020-04-30] MEDS ORDERED: INSULIN LANTUS (GLARGINE) 1 /0.01ml (100units/ml) SC SCH (22:00)
[2020-04-30] MEDS ORDERED: IOHEXOL 350 MG/ML 100ML IJ ONE (22:59)
[2020-04-30] MEDS: MEROPENEM 1GM IVPB 100 ML IV SCH (23:51)
[2020-05-01] MEDS ORDERED: VANCOMYCIN 1GM/250ML 250 ML IV SCH
[2020-05-01] MEDS: ACCU-CHEK COMFORT CURVE STRIP VI SCH ×6 (00:55→20:15)
[2020-05-01] MEDS: InsuLIN REG 1unit/0.01ml Soln (100units/ml) SC SCH ×6 (00:56→20:19)
[2020-05-01] MEDS: VANCOMYCIN 1GM/250ML 250 ML IV SCH ×3 (02:20→18:18)
--- NOTE | 2020-05-01 02:50 | NUR ---
Respiratory note: PLACED PT ON [facility] CPAP. PT HAS HIS OWN CPAP AT BEDSIDE. COMMUNICATED TO PT WE CANNOT USE HIS OWN DEVICE/UNIT HERE, HIS INTERFACE IS ACCEPTABLE. PT HAS HIS OWN HOME NASAL MASK FOR COMFORT. CPAP UNIT CONNECTED TO RED OUTLET AND WATER CHAMBER FILLED TO ADEQUATE LEVEL. CONTINUOS POX PLACED PER PROTOCOL POX PROBE ON LEFT INDEX FINGER. NO BREAKDOWN NOTED PRIOR TO PLACEMENT. RT NAME AND PAGER ASSIGNMENT WRITTEN ON PTS ROOM BOARD WILL CONTINUE TO MONITOR Q2H.
[2020-05-01] MEDS: MORPHINE SULF INJ 2 MG/ML SYRINGE 1ML IV PRN ×5 (04:25→22:30)
[2020-05-01 05:00] VITALS: BP 116/78
[2020-05-01] MEDS: MEROPENEM 1GM IVPB 100 ML IV SCH ×3 (06:05→22:31)
[2020-05-01 06:15] LABS: Hematocrit 35.3 % (41.0-53.0); Hemoglobin 11.9 g/dL (13.5-17.5); Mean Corpuscular Hemoglobin 28.1 pg (28.0-32.0); Mean Corpuscular Hgb Conc. 33.6 g/dL (32.0-36.0); Mean Corpuscular Volume 83.5 fL (80.0-100.0); Platelet Count (auto) 144 10^3/uL (140-450); Red Blood Cells 4.22 10^6/uL (4.5-5.90); Red Cell Distribution Width 14.6 % (11.8-14.3)
[2020-05-01 06:30] LABS: Basophils % (manual) 0 (0.0-2.0); Blast Cells 0; Metamyelocytes % 0; Myelocytes % 0; Promyelocytes % 0; Reactive Lymphocytes 0
[2020-05-01 06:44] LABS: Potassium 3.2 mmol/L (3.5-5.1)
[2020-05-01 06:50] LABS: BUN/Creatinine Ratio 18.8; Bilirubin, Total 1.3 mg/dL (0.2-1.0); Calcium 8.2 mg/dL (8.5-10.1); Total Protein 5.4 g/dL (6.4-8.2)
--- NOTE | 2020-05-01 07:00 | NUR ---
Opening Shift Note Received report on the patient. Awake lying in bed. Patient shows no signs of distress at this time. Discussed the plan of care with the patient. Bed in lowest position, side rails up x2, and the call light is within reach.
[2020-05-01 07:11] LABS: Band Neutrophils % (manual) 1; Eosinophils % (manual) 1 (0-7); Lymphocytes % (manual) 8 (10.0-50.0); Monocytes % (manual) 6 (0-12)
[2020-05-01 09:00] VITALS: BP 138/69
[2020-05-01] MEDS: ENOXAPARIN SOD 40 MG/0.4 ML SYRINGE SC SCH (09:56)
--- NOTE | 2020-05-01 10:15 | NUR ---
Attempted PT eval, pt states he is too tired and wants to sleep. Will attempt again later.
[2020-05-01] MEDS ORDERED: POTASSIUM CHL 20 Meq TABLET PO ONE (11:00)
[2020-05-01 11:37] LABS: T3 Total 0.59 ng/mL (0.60-1.81)
[2020-05-01 11:38] LABS: Free T3 1.41 pg/mL (2.3-4.2)
--- NOTE | 2020-05-01 11:47 | NUR ---
Dr Greene at bedside. New orders received
[2020-05-01 13:00] VITALS: BP 136/74
--- NOTE | 2020-05-01 13:01 | NUR ---
Lalit lalwer. Patient tolerated well. Addendum: 05/01/20 at 1626 by MYNOR BREWER RN RN Emptied 900ml out of nuris
[2020-05-01] MEDS ORDERED: methIMAzole 5 MG TAB PO ONE (13:15)
--- NOTE | 2020-05-01 13:50 | NUR ---
Attempted PT prashanth, pt is very lethargic. She opened her eyes to verbal commands but immediately closed them and does not respond to questions. RN notified. Will attempt again tomorrow. Addendum: 05/01/20 at 1432 by LARRY BENAVIDES PT Wrong patient
--- NOTE | 2020-05-01 14:20 | NUR ---
2nd attempt made for PT eval, pt continues to decline but is agreeable to treatment in the morning. Will attempt again. RN aware.
[2020-05-01 17:00] VITALS: BP 127/73
--- NOTE | 2020-05-01 19:10 | NUR ---
Opening Shift Note Assumed care of patient, awake and alert. No S/S of distress/SOB or pain. Patient safety measures in place bed in lowest position, side rails up x2, and call light within reach. Instructed on POC and to call for assist PRN, will continue to monitor for changes Q1hr and PRN.
--- NOTE | 2020-05-01 19:14 | NUR ---
Endorsed care to Jess DAILY. Patient shows no signs of distress at this time.
[2020-05-01 22:00] VITALS: BP 132/77
[2020-05-01] MEDS: methIMAzole 5 MG TAB PO SCH (22:29)
[2020-05-02] MEDS: ACCU-CHEK COMFORT CURVE STRIP VI SCH ×7 (00:13→23:58)
[2020-05-02] MEDS: InsuLIN REG 1unit/0.01ml Soln (100units/ml) SC SCH ×6 (00:14→20:23)
[2020-05-02 01:49] LABS: BUN/Creatinine Ratio 22.4; Calcium 7.9 mg/dL (8.5-10.1); Phosphorus 2.2 mg/dL (2.5-4.90)
[2020-05-02 01:53] LABS: Potassium 2.8 mmol/L (3.5-5.1)
[2020-05-02] MEDS: VANCOMYCIN 1GM/250ML 250 ML IV SCH ×4 (02:00→22:36)
[2020-05-02] MEDS: MORPHINE SULF INJ 2 MG/ML SYRINGE 1ML IV PRN ×4 (04:46→19:06)
[2020-05-02 05:00] VITALS: BP 133/77
[2020-05-02] MEDS: POTASSIUM CHL 20MEQ/100ML 100 ML IV SCH ×3 (06:06→10:29)
--- NOTE | 2020-05-02 08:05 | NUR ---
OPENING SHIFT NOTE: PATIENT RESTING IN BED, AWAKE. C/O MODERATE PAIN 05/01. PATIENT LUNGS CLEAR PATIENT USING CPAP MACHINE, REPORTS THAT, "IT MAKES ME FEEL BETTER I LIKE IT." UPDATED ON PLAN OF CARE. FALL PRECAUTIONS IN PLACE, CALL LIGHT WITHIN REACH, WILL CONTINUE TO MONITOR.
[2020-05-02 09:00] VITALS: BP 146/82
[2020-05-02] MEDS: MEROPENEM 1GM IVPB 100 ML IV SCH ×3 (09:07→23:17)
--- NOTE | 2020-05-02 10:27 | NUR ---
Attempted PT eval again. Pt states he still does not want to get up because he has pain in his hand. RN aware. Pt states he does not want physical therapy at this time and will be discharged from caseload. Pt was instructed to notify RN or physician if he would like therapy later.
[2020-05-02] MEDS: ENOXAPARIN SOD 40 MG/0.4 ML SYRINGE SC SCH (10:30)
[2020-05-02] MEDS: methIMAzole 5 MG TAB PO SCH ×2 (10:30→22:36)
--- NOTE | 2020-05-02 10:30 | NUR ---
POTASSIUM: 2/3 BAGS OF POTASSIUM INFUSED FOR A TOTAL OF 40 MEQ. PATIENT REFUSED LAST BAG. EDUCATION GIVEN, WILL LET MD KNOW.
--- NOTE | 2020-05-02 11:00 | NUR ---
MD CORTES MADE AWARE OF POSITIVE BLOOD CULTURES.
[2020-05-02 13:00] VITALS: BP 138/87
--- NOTE | 2020-05-02 14:39 | NUR ---
MD SEBASTIAN HIGGINS
[2020-05-02] MEDS ORDERED: HYDROcodone-ACET 5/325MG TAB PO PRN (14:45)
[2020-05-02] MEDS ORDERED: POTASSIUM CHL 20 Meq TABLET PO ONE (14:45)
--- NOTE | 2020-05-02 15:05 | NUR ---
X-RAY AT BEDSIDE.
[2020-05-02] MEDS ORDERED: SODIUM PHOSPHATES 24 MEQ in SODIUM CHL 0.9% 100 ML IV ONE ×2 (16:15→19:15)
[2020-05-02 17:19] VITALS: BP 151/93
--- NOTE | 2020-05-02 17:54 | NUR ---
Midline Placement: Patient educated on need for midline placement. All risks and benefits explained and all questions and concerns addresses prior to procedure. 18g/10cm midline inserted via RIGHT BASILIC vein using Ultrasound. Sterile technique utilized. Blood return obtained from THE lumen and flushed easily with NS using proper technique. Midline secured with saline lock; biodisc and occlusive dressing applied. Primary RN notified. Midline lot # [id number].
--- NOTE | 2020-05-02 18:17 | NUR ---
RT NOTE PT FOUND ON HOSPITAL OWNED CPAP # RESPIRATORY 2 AT THIS TIME WITH PTS OWN CIRCUIT AND NASAL PRONGS ON STATED SETTINGS. PT PLACES CPAP ON AND OFF ALL DAY HE WISHES. CPAP IS PLUGGED TO RED OUTLET. PT IS ON BEDSIDE POX #2 PER PROTOCOL. CPAP SETTINGS ARE 14 CMH20 AND ROOM AIR. CONT TO MONITOR. POX 93% Addendum: 05/02/20 at 1821 by Zuleyma Green RT Amended: Links added.
--- NOTE | 2020-05-02 19:04 | NUR ---
URINE SENT TO LAB FOR CULTURE.
--- NOTE | 2020-05-02 19:10 | NUR ---
Opening Shift Note Assumed care of patient. Patient is awake, alert, and oriented X 4. No S/S of respiratory distress or pain. Patient is on CPAP machine. Respirations are regular. Patient safety measures in place bed in lowest position, brakes are locked, side rails up x 2, and call light within reach. Patent instructed on POC and to call for assistance as needed. Will continue to monitor for changes Q1hr and PRN.
--- NOTE | 2020-05-02 19:49 | NUR ---
RT NOTE ROUTINE CPAP CHECK DONE. PT IS ON HOSPITAL OWNED CPAP # RESPIRATORY 2 AT THIS TIME WITH PTS OWN CIRCUIT AND NASAL PRONGS ON STATED SETTINGS. PT PLACES CPAP ON AND OFF ALL DAY HE WISHES. CPAP IS PLUGGED TO RED OUTLET. PT IS ON BEDSIDE POX #2 PER PROTOCOL. CPAP SETTINGS ARE 14 CMH20 AND ROOM AIR. CONT TO MONITOR. POX 94% Addendum: 05/02/20 at 1950 by Zuleyma Green RT Amended: Links added.
[2020-05-02 20:00] VITALS: BP 140/94
--- NOTE | 2020-05-02 21:59 | NUR ---
RT NOTE ROUTINE CPAP CHECK DONE. PT IS ON HOSPITAL OWNED CPAP # RESPIRATORY 2 AT THIS TIME WITH PTS OWN CIRCUIT AND NASAL PRONGS ON STATED SETTINGS. PT IS SLEEPING AND APPEARS COMFORTABLE AT THIS TIME.. CPAP IS PLUGGED TO RED OUTLET. PT IS ON BEDSIDE POX #2 PER PROTOCOL. CPAP SETTINGS ARE 14 CMH20 AND ROOM AIR. WATER LEVEL IS ADEQUATE. HUMIDITY IS SET TO 1. CONT TO MONITOR. POX 92% Addendum: 05/02/20 at 2159 by Zuleyma Green RT Amended: Links added.
[2020-05-02 22:00] VITALS: BP 140/94
--- NOTE | 2020-05-02 23:55 | NUR ---
RT NOTE ROUTINE CPAP CHECK DONE. PT IS ON HOSPITAL OWNED CPAP # RESPIRATORY 2 AT THIS TIME WITH PTS OWN CIRCUIT AND NASAL PRONGS ON STATED SETTINGS. PT IS SLEEPING AND APPEARS COMFORTABLE AT THIS TIME.. CPAP IS PLUGGED TO RED OUTLET. PT IS ON BEDSIDE POX #2 PER PROTOCOL. CPAP SETTINGS ARE 14 CMH20 AND ROOM AIR. WATER LEVEL IS ADEQUATE. HUMIDITY IS SET TO 1. CONT TO MONITOR. POX 93% Addendum: 05/02/20 at 2356 by Zuleyma Green RT Amended: Links added.
[2020-05-03] VITALS (7 sets, daily range): BP systolic 129–152; BP diastolic 70–89
[2020-05-03] MEDS: InsuLIN REG 1unit/0.01ml Soln (100units/ml) SC SCH ×7 (00:10→23:58)
[2020-05-03] MEDS: MORPHINE SULF INJ 2 MG/ML SYRINGE 1ML IV PRN ×5 (00:20→23:59)
--- NOTE | 2020-05-03 01:58 | NUR ---
RT NOTE ROUTINE CPAP CHECK DONE. PT IS ON HOSPITAL OWNED CPAP # RESPIRATORY 2 AT THIS TIME WITH PTS OWN CIRCUIT AND NASAL PRONGS ON STATED SETTINGS. PT IS SLEEPING AND APPEARS COMFORTABLE AT THIS TIME. CPAP IS PLUGGED TO RED OUTLET. PT IS ON BEDSIDE POX #2 PER PROTOCOL. CPAP SETTINGS ARE 14 CMH20 AND ROOM AIR. WATER LEVEL IS ADEQUATE. HUMIDITY IS SET TO 1. CONT TO MONITOR. POX 94% Addendum: 05/03/20 at 0214 by Zuleyma Green RT Amended: Links added.
[2020-05-03] MEDS: ACCU-CHEK COMFORT CURVE STRIP VI SCH ×6 (04:08→23:46)
--- NOTE | 2020-05-03 04:15 | NUR ---
RT NOTE ROUTINE CPAP CHECK DONE. PT IS ON HOSPITAL OWNED CPAP # RESPIRATORY 2 AT THIS TIME WITH PTS OWN CIRCUIT AND NASAL PRONGS ON STATED SETTINGS. PT IS SLEEPING AND APPEARS COMFORTABLE AT THIS TIME. CPAP IS PLUGGED TO RED OUTLET. PT IS ON BEDSIDE POX #2 PER PROTOCOL. CPAP SETTINGS ARE 14 CMH20 AND ROOM AIR. WATER LEVEL IS ADEQUATE. HUMIDITY IS SET TO 1. CONT TO MONITOR. POX 91% Addendum: 05/03/20 at 0415 by Zuleyma Green RT Amended: Links added.
[2020-05-03] MEDS: VANCOMYCIN 1GM/250ML 250 ML IV SCH ×3 (04:17→16:33)
[2020-05-03] MEDS: MEROPENEM 1GM IVPB 100 ML IV SCH ×3 (06:50→23:45)
--- NOTE | 2020-05-03 07:30 | NUR ---
Opening Shift Note: Assumed care of patient, awake and alert. No S/S of distress/SOB or pain. Bed in lowest locked position, side rails up x 2, call light within reach. Patient instructed on POC and to call for assist PRN, will continue to monitor for changes Q1hr and PRN.
[2020-05-03 08:39] LABS: Hemoglobin 11.5 g/dL (13.5-17.5); Mean Corpuscular Hemoglobin 28.4 pg (28.0-32.0); Mean Corpuscular Hgb Conc. 33.9 g/dL (32.0-36.0); Mean Corpuscular Volume 83.7 fL (80.0-100.0); Platelet Count (auto) 251 10^3/uL (140-450); Red Blood Cells 4.06 10^6/uL (4.5-5.90); Red Cell Distribution Width 14.2 % (11.8-14.3); White Blood Cell 10.3 10^3/uL (4.4-10.8)
[2020-05-03] MEDS: methIMAzole 5 MG TAB PO SCH ×2 (08:56→22:27)
[2020-05-03] MEDS: ENOXAPARIN SOD 40 MG/0.4 ML SYRINGE SC SCH (08:56)
[2020-05-03 08:57] LABS: Basophils % (manual) 0 (0.0-2.0); Blast Cells 0; Myelocytes % 0; Promyelocytes % 0; Reactive Lymphocytes 0
[2020-05-03 09:22] LABS: Albumin 1.9 g/dL (3.4-5.0); BUN/Creatinine Ratio 22.8; Bilirubin, Total 0.8 mg/dL (0.2-1.0); Calcium 7.7 mg/dL (8.5-10.1); Total Protein 5.6 g/dL (6.4-8.2)
[2020-05-03 09:26] LABS: Potassium 2.6 mmol/L (3.5-5.1)
[2020-05-03 09:38] LABS: Band Neutrophils % (manual) 7; Eosinophils % (manual) 1 (0-7); Lymphocytes % (manual) 14 (10.0-50.0); Metamyelocytes % 2; Monocytes % (manual) 11 (0-12)
--- NOTE | 2020-05-03 09:42 | NUR ---
CRITICAL LAB Potassium 2.6. Paged Dr. Greene
--- NOTE | 2020-05-03 09:59 | NUR ---
SPOKE WITH MD New orders received, read back and verified.
[2020-05-03] MEDS ORDERED: POTASSIUM CHL 20 Meq TABLET PO ONE (10:15)
[2020-05-03] MEDS: POTASSIUM CHL 20MEQ/100ML 100 ML IV SCH ×2 (10:43→12:17)
--- NOTE | 2020-05-03 15:57 | NUR ---
Nutrition Assessment Notes Please see attached link for complete assessment [employer] needs ABW 105 [id number] kcals (17-20 kcal/kgBW), Est Protein needs: 105-126 gms/day (1.0-1.2 gm/kgBW) d/t pt severe hypoalb. Will continue to monitor and reassess prn. Addendum: 05/03/20 at [address] Amended: Links added.
--- NOTE | 2020-05-03 19:10 | NUR ---
Opening Shift Note Assumed care of patient. Patient is awake, alert, and oriented X 4. No S/S of respiratory distress. Patient reports pain 9 out of 10. Will be addressed per dr's order. Patient is on CPAP machine. Patient safety measures in place bed in lowest position, brakes are locked, side rails up x 2, and call light within reach. Patent instructed on POC and to call for assistance as needed. Will continue to monitor for changes Q1hr and PRN.
--- NOTE | 2020-05-03 19:38 | NUR ---
CLOSING NOTE: Patient resting in bed. No S/S of distress at this time. Care endorsed to NOC RN
[2020-05-03] MEDS: VANCOMYCIN 1,250 MG in D5W 5% 250 ML IV SCH (22:27)
[2020-05-04] MEDS: MORPHINE SULF INJ 2 MG/ML SYRINGE 1ML IV PRN ×3 (04:05→12:27)
[2020-05-04] MEDS: VANCOMYCIN 1,250 MG in D5W 5% 250 ML IV SCH ×3 (04:12→16:00)
[2020-05-04] MEDS: ACCU-CHEK COMFORT CURVE STRIP VI SCH ×4 (04:12→16:00)
[2020-05-04] MEDS: InsuLIN REG 1unit/0.01ml Soln (100units/ml) SC SCH ×4 (04:17→16:00)
[2020-05-04 05:15] VITALS: BP 137/74
[2020-05-04] MEDS: MEROPENEM 1GM IVPB 100 ML IV SCH ×2 (06:51→15:00)
[2020-05-04 06:52] LABS: Hematocrit 34.5 % (41.0-53.0); Hemoglobin 11.5 g/dL (13.5-17.5); Mean Corpuscular Hgb Conc. 33.4 g/dL (32.0-36.0); Mean Corpuscular Volume 83.8 fL (80.0-100.0); Platelet Count (auto) 312 10^3/uL (140-450); Red Blood Cells 4.11 10^6/uL (4.5-5.90); White Blood Cell 11.2 10^3/uL (4.4-10.8)
--- NOTE | 2020-05-04 07:00 | NUR ---
Respiratory note: PT IS OFF CPAP, AWAKE AND ALERT.HR 86, RR 14, SPO2 94% ON RA BS CLEAR.NO SIGNS OR SYMPTOMS OF RESPIRATORY DISTRESS NOTED.
[2020-05-04 07:09] LABS: Basophils % (manual) 0 (0.0-2.0); Blast Cells 0; Metamyelocytes % 0; Myelocytes % 0; Promyelocytes % 0; Reactive Lymphocytes 0
[2020-05-04 07:11] LABS: Albumin 1.9 g/dL (3.4-5.0)
[2020-05-04 07:18] LABS: BUN/Creatinine Ratio 19.6; Bilirubin, Total 0.7 mg/dL (0.2-1.0); Total Protein 5.8 g/dL (6.4-8.2)
--- NOTE | 2020-05-04 07:20 | NUR ---
Endorsed care to DAY SHIFT RN. Patient shows no signs of distress at this time.
[2020-05-04 07:33] LABS: Band Neutrophils % (manual) 3; Eosinophils % (manual) 1 (0-7); Lymphocytes % (manual) 15 (10.0-50.0); Monocytes % (manual) 10 (0-12)
[2020-05-04 07:37] LABS: Potassium 2.8 mmol/L (3.5-5.1)
[2020-05-04 09:00] VITALS: BP 144/82
[2020-05-04] MEDS ORDERED: POTASSIUM CHL 20 Meq TABLET PO ONE (10:15)
[2020-05-04] MEDS: methIMAzole 5 MG TAB PO SCH (10:24)
[2020-05-04] MEDS: ENOXAPARIN SOD 40 MG/0.4 ML SYRINGE SC SCH (10:25)
[2020-05-04] MEDS: POTASSIUM CHL 20MEQ/100ML 100 ML IV SCH ×2 (12:14→14:16)
[2020-05-04 13:00] VITALS: BP 147/83
[2020-05-04] MEDS ORDERED: INSLANTI SC (15:27)
[2020-05-04] MEDS ORDERED: INSU100I4 SC (15:27)
[2020-05-04] MEDS ORDERED: SPIR25TA88 PO (15:27)
[2020-05-04] MEDS ORDERED: METH5T PO (15:27)
[2020-05-04] MEDS ORDERED: LEVO500T21 PO (15:27)
[2020-05-04 16:29] VITALS: BP 147/83
[2020-05-04 17:00] VITALS: BP 145/83
[2020-05-04] MEDS ORDERED: SPIRONOLACTONE 25 MG TAB PO SCH ×2 (18:00)
--- NOTE | 2020-05-04 18:55 | NUR ---
Discharge instructions given as ordered. Encourage to follow up with PMD as instructed. All questions and concerns addressed. Patient verbalized understanding. Medication reconciliation form completed and copy given to patient. IV removed with catheter intact and pressure dressing applied. Telemetry unit returned to ICU. Patient taken to vehicle via wheelchair with all personal belongings, accompanied by staff. No distress noted at time of departure.
== END 2020-05-04 18:50 | disposition home or self-care (01) | DRG 637 ==
LOC: ER 14:38 → EDUNIT# 14:38 → EDBD 14:38 → TELE 14:39 → TELE-WESTW 04-30 12:02
PROVIDERS: ADMIT Internal Medicine; ATTEND Internal Medicine
PROC: 5A09457 Assistance with Respiratory Ventilation, 24-96 Consecutive Hours, Continuous Positive Airway Pressure (ICD-10-PCS; principal; 2020-05-01)
PROC: 5A09357 Assistance with Respiratory Ventilation, Less than 24 Consecutive Hours, Continuous Positive Airway Pressure (ICD-10-PCS; 2020-05-03)
PROC: 5A09357 Assistance with Respiratory Ventilation, Less than 24 Consecutive Hours, Continuous Positive Airway Pressure (ICD-10-PCS; 2020-05-04)
DX: E11.00 Type 2 diabetes mellitus with hyperosmolarity without nonketotic hyperglycemic-hyperosmolar coma (NKHHC) (principal); N17.0 Acute kidney failure with tubular necrosis; E44.0 Moderate protein-calorie malnutrition; E87.1 Hypo-osmolality and hyponatremia; R65.10 Systemic inflammatory response syndrome (SIRS) of non-infectious origin without acute organ dysfunction; Z68.41 Body mass index [BMI] 40.0-44.9, adult; E11.65 Type 2 diabetes mellitus with hyperglycemia; E11.21 Type 2 diabetes mellitus with diabetic nephropathy; E87.6 Hypokalemia; R29.6 Repeated falls; E66.9 Obesity, unspecified; E05.90 Thyrotoxicosis, unspecified without thyrotoxic crisis or storm; I27.20 Pulmonary hypertension, unspecified; I35.0 Nonrheumatic aortic (valve) stenosis; I50.9 Heart failure, unspecified; I11.0 Hypertensive heart disease with heart failure; J44.9 Chronic obstructive pulmonary disease, unspecified; F41.9 Anxiety disorder, unspecified; Z88.5 Allergy status to narcotic agent; Z88.0 Allergy status to penicillin; Z88.8 Allergy status to other drugs, medicaments and biological substances
CPT/HCPCS: 36415; 36600; 51702; 71045; 71046; 71275; 73030; 80048; 80053; 80061; 80202; 80307; 81001; 82010; 82550; 82565; 82607; 82805; 82962; 83036; 83690; 83735; 83930; 84100; 84132; 84439; 84443; 84480; 84481; 85007; 85025; 85027; 85610; 85730; 87040; 87077; 87086; 93005; 93306; 94660; 96365; 96366; 96368; 96372; 99291; G0378; J1815; J2001; J2185; J3480; J7060

== ENCOUNTER 2020-06-17 00:50 | Inpatient (IN) | payer MEDICARE ==
[~2020-06-17] VITALS: Ht 180.3 cm; Wt 136.0 kg
[~2020-06-17 00:50] MED LIST changes: -DIAZ10TA PO; -IBUP800T24 PO; +INSLANTI SC; +INSU100I4 SC; +LEVO500T21 PO; +METH5T PO; -PANT40TA2 PO; +SPIR25TA88 PO
[2020-06-17] MEDS ORDERED: ASPirin 325 MG TAB ONE (01:55)
[2020-06-17] MEDS ORDERED: ONDANSETRON HCL 4 MG/2 ML VIAL ONE (01:56)
[2020-06-17] MEDS ORDERED: PIPERACILLIN-TAZOB 3.375GM 0 ML IV ONE (03:01)
[2020-06-17] MEDS ORDERED: metroNIDAZOLE 500MG/100ML 100 ML IV ONE ×2 (03:01→03:30)
[2020-06-17] MEDS ORDERED: HYDROmorphone HCL 2 MG/ML VL ONE (03:08)
[2020-06-17] MEDS ORDERED: ONDANSETRON HCL 4 MG/2 ML VIAL IV ONE (03:30)
[2020-06-17] MEDS ORDERED: HYDROmorphone HCL 2 MG/ML VL IV ONE ×3 (03:30→05:00)
[2020-06-17] MEDS ORDERED: ASPirin 325 MG TAB PO ONE (03:30)
[2020-06-17 04:25] LABS: Basophils # (auto) 0.1 10 ^3/uL (0-0.2); Basophils % (auto) 0.5 % (0.0-2.0); Eosinophils # (auto) 0.1 10 ^3/uL (0-0.8); Eosinophils % (auto) 0.8 % (0.0-7.0); Hemoglobin 15.7 g/dL (13.5-17.5); Lymphocytes # (auto) 1.8 10 ^3/uL (0.4-5.4); Lymphocytes % (auto) 11.8 % (10.0-50.0); Mean Corpuscular Hemoglobin 27.5 pg (28.0-32.0); Mean Corpuscular Hgb Conc. 32.7 g/dL (32.0-36.0); Mean Corpuscular Volume 84.2 fL (80.0-100.0); Monocytes # (auto) 0.8 10 ^3/uL (0-1.3); Monocytes % (auto) 5.4 % (0.0-12.0); Neutrophils # (auto) 12.5 10 ^3/uL (1.6-8.6); Neutrophils % (auto) 81.5 % (37.0-80.0); Nucleated Red Blood Cells % 0.1 %; Platelet Count (auto) 277 10^3/uL (140-450); Red Cell Distribution Width 14.2 % (11.8-14.3); White Blood Cell 15.4 10^3/uL (4.4-10.8)
[2020-06-17 04:44] LABS: Alanine Aminotransferase 14 U/L (16-61); Albumin 3.4 g/dL (3.4-5.0); Amylase 30 U/L (25-115); Anion Gap 9 (5-15); Aspartate Aminotransferase 28 U/L (15-37); BUN/Creatinine Ratio 17.6; Blood Urea Nitrogen 15 mg/dL (7-18); Calcium 8.7 mg/dL (8.5-10.1); Carbon Dioxide 24 mmol/L (21-32); Chloride 102 mmol/L (98-107); GFR African American 124 mL/min; GFR Non-African American 102 mL/min; Glucose 276 mg/dL (74-106); Lipase 56 U/L (73-393); Magnesium 1.8 mg/dL (1.6-2.6); Potassium 3.8 mmol/L (3.5-5.1); Sodium 135 mmol/L (136-145)
[2020-06-17 04:49] LABS: Alkaline Phosphatase 110 U/L (45-117); Bilirubin, Total 0.7 mg/dL (0.2-1.0); Total Protein 8.1 g/dL (6.4-8.2)
[2020-06-17] MEDS ORDERED: DEXTROSE (50%) 50ML SYRG IV PRN (05:45)
[2020-06-17] MEDS ORDERED: MORPHINE SULF INJ 2 MG/ML SYRINGE 1ML IV PRN ×2 (05:45→11:45)
[2020-06-17] MEDS ORDERED: MORPHINE SULFATE 4 MG/ML SYR/VIAL IV PRN (05:45)
[2020-06-17] MEDS ORDERED: hydrALAZINE HCL 20 MG/ML VL IV PRN (05:45)
[2020-06-17 05:52] LABS: INR 0.92 (0.9-1.15); Partial Thromboplastin Time 23.2 sec (23.0-31.2)
[2020-06-17] MEDS: metroNIDAZOLE 500MG/100ML 100 ML IV SCH ×3 (05:55→21:58)
[2020-06-17] MEDS: ACCU-CHEK COMFORT CURVE STRIP VI SCH ×4 (05:55→23:55)
[2020-06-17] MEDS: InsuLIN REG 1unit/0.01ml Soln (100units/ml) SC SCH ×4 (05:57→23:54)
[2020-06-17] MEDS: ONDANSETRON HCL 4 MG/2 ML VIAL IV PRN (08:31)
[2020-06-17] MEDS ORDERED: METF-370 PO (10:02)
[2020-06-17] MEDS: levoFLOXacin 500MG 100 ML IV SCH (10:34)
[2020-06-17] MEDS: PANTOPRAZOLE 40 MG/10 ML VIAL INJ IV SCH (10:34)
[2020-06-17] MEDS ORDERED: METOPROLOL TARTRATE 50 MG TAB PO ONE (10:45)
[2020-06-17] MEDS ORDERED: INSU300I SC (11:06)
[2020-06-17] MEDS: MORPHINE SULFATE 4 MG/ML SYR/VIAL IV PRN ×3 (12:43→21:59)
[2020-06-17 12:46] LABS: INR 0.96 (0.9-1.15); Partial Thromboplastin Time 24.8 sec (23.0-31.2)
[2020-06-17 13:00] VITALS: BP 158/93
[2020-06-17 17:00] VITALS: BP 142/90
[2020-06-17] MEDS ORDERED: SEMA2INJ SC (17:09)
[2020-06-17 20:05] VITALS: BP 142/90
[2020-06-17] MEDS: METOPROLOL TARTRATE 50 MG TAB PO SCH (21:59)
[2020-06-17 22:00] VITALS: BP 134/79
[2020-06-18] VITALS (30 sets, daily range): BP systolic 81–186; BP diastolic 49–134
[2020-06-18] MEDS: MORPHINE SULFATE 4 MG/ML SYR/VIAL IV PRN ×3 (01:47→10:22)
[2020-06-18 05:41] LABS: Basophils # (auto) 0.1 10 ^3/uL (0-0.2); Basophils % (auto) 0.6 % (0.0-2.0); Eosinophils # (auto) 0.2 10 ^3/uL (0-0.8); Eosinophils % (auto) 1.8 % (0.0-7.0); Hematocrit 44.9 % (41.0-53.0); Hemoglobin 15.3 g/dL (13.5-17.5); Lymphocytes # (auto) 1.5 10 ^3/uL (0.4-5.4); Lymphocytes % (auto) 15.5 % (10.0-50.0); Mean Corpuscular Hemoglobin 28.7 pg (28.0-32.0); Mean Corpuscular Volume 84.6 fL (80.0-100.0); Monocytes # (auto) 0.8 10 ^3/uL (0-1.3); Monocytes % (auto) 8.5 % (0.0-12.0); Neutrophils # (auto) 7.1 10 ^3/uL (1.6-8.6); Neutrophils % (auto) 73.6 % (37.0-80.0); Nucleated Red Blood Cells % 0.1 %; Platelet Count (auto) 241 10^3/uL (140-450); Red Blood Cells 5.31 10^6/uL (4.5-5.90); Red Cell Distribution Width 14.1 % (11.8-14.3); White Blood Cell 9.7 10^3/uL (4.4-10.8)
[2020-06-18 05:48] LABS: Potassium 3.3 mmol/L (3.5-5.1)
[2020-06-18 05:52] LABS: BUN/Creatinine Ratio 15.2; Calcium 8.6 mg/dL (8.5-10.1)
[2020-06-18] MEDS: metroNIDAZOLE 500MG/100ML 100 ML IV SCH ×4 (06:19→21:52)
[2020-06-18] MEDS: ACCU-CHEK COMFORT CURVE STRIP VI SCH ×3 (06:19→20:21)
[2020-06-18] MEDS: InsuLIN REG 1unit/0.01ml Soln (100units/ml) SC SCH ×3 (06:19→20:23)
[2020-06-18] MEDS: PANTOPRAZOLE 40 MG/10 ML VIAL INJ IV SCH (09:21)
[2020-06-18] MEDS: levoFLOXacin 500MG 100 ML IV SCH (09:21)
[2020-06-18] MEDS: METOPROLOL TARTRATE 50 MG TAB PO SCH ×2 (09:22→21:52)
[2020-06-18] MEDS ORDERED: POTASSIUM EFFERVESENT TAB 25 MEQ GT ONE (09:30)
[2020-06-18] MEDS ORDERED: POTASSIUM CHL 20MEQ/100ML 100 ML IV ONE (09:30)
[2020-06-18] MEDS ORDERED: fentaNYL CITRATE 100 MCG/2 ML VL ONE (12:58)
[2020-06-18] MEDS ORDERED: fentaNYL CITRATE 5 ML ONE ×2 (12:58→16:55)
[2020-06-18] MEDS ORDERED: ROCURONIUM 10MG/ML 10ML VIAL IV ONE ×2 (12:58→17:54)
[2020-06-18] MEDS ORDERED: ETOMIDATE (2MG/ML) 20ML VIAL IV ONE (12:59)
[2020-06-18] MEDS ORDERED: MORPHINE SULFATE INJECTION 1 ML ONE (12:59)
[2020-06-18] MEDS ORDERED: MIDAZOLAM HCL 1MG/1ML-2 ML VIAL ONE ×2 (12:59→15:58)
[2020-06-18] MEDS ORDERED: BUPIVACAINE 0.25% INJ 50ML VIAL ONE (15:05)
[2020-06-18] MEDS ORDERED: ONDANSETRON HCL 4 MG/2 ML VIAL IV ONE (15:35)
[2020-06-18] MEDS ORDERED: MIDAZOLAM HCL 1MG/1ML-2 ML VIAL IV ONE (15:35)
[2020-06-18] MEDS ORDERED: SUCCINYLCHOLINE CHLORIDE 20 MG/ML 10ML VIAL IV ONE (15:35)
[2020-06-18 16:18] LABS: Urine Bacteria NONE SEEN /hpf (None Seen); Urine Blood Negative /uL (Negative); Urine Mucus FEW (None Seen); Urine Specific Gravity 1.024 (1.001-1.035); Urine WBC 2 /hpf (0 - 3)
[2020-06-18] MEDS ORDERED: HYDROmorphone HCL 2 MG/ML VL ONE (16:55)
[2020-06-18] MEDS ORDERED: SOD CHL 0.45% 1,000 ML IV SCH (18:30)
[2020-06-18] MEDS: MIDAZOLAM DRIP 50 mg/50mL 50 ML IV SCH ×2 (18:40→21:59)
[2020-06-18] MEDS: fentaNYL Drip 2500mCg/250mlNS 250 ML IV SCH (18:40)
[2020-06-19] VITALS (87 sets, daily range): BP systolic 64–177; BP diastolic 41–87
[2020-06-19] MEDS: InsuLIN REG 1unit/0.01ml Soln (100units/ml) SC SCH ×5 (00:05→23:36)
[2020-06-19] MEDS: ACCU-CHEK COMFORT CURVE STRIP VI SCH ×5 (00:05→23:36)
[2020-06-19] MEDS: MORPHINE SULFATE 4 MG/ML SYR/VIAL IV PRN ×2 (02:34→06:25)
[2020-06-19 04:26] LABS: Basophils # (auto) 0 10 ^3/uL (0-0.2); Basophils % (auto) 0.3 % (0.0-2.0); Eosinophils # (auto) 0.1 10 ^3/uL (0-0.8); Eosinophils % (auto) 0.8 % (0.0-7.0); Hemoglobin 13.6 g/dL (13.5-17.5); Lymphocytes # (auto) 1.2 10 ^3/uL (0.4-5.4); Lymphocytes % (auto) 10.7 % (10.0-50.0); Mean Corpuscular Hemoglobin 28.7 pg (28.0-32.0); Mean Corpuscular Hgb Conc. 34.1 g/dL (32.0-36.0); Mean Corpuscular Volume 84.1 fL (80.0-100.0); Monocytes % (auto) 8.7 % (0.0-12.0); Neutrophils # (auto) 9.3 10 ^3/uL (1.6-8.6); Neutrophils % (auto) 79.5 % (37.0-80.0); Platelet Count (auto) 255 10^3/uL (140-450); Red Blood Cells 4.76 10^6/uL (4.5-5.90); Red Cell Distribution Width 14.2 % (11.8-14.3); White Blood Cell 11.7 10^3/uL (4.4-10.8)
[2020-06-19 04:38] LABS: Albumin 2.8 g/dL (3.4-5.0); Calcium 7.7 mg/dL (8.5-10.1); Potassium 3.6 mmol/L (3.5-5.1)
[2020-06-19 04:41] LABS: BUN/Creatinine Ratio 14.1; Bilirubin, Total 0.8 mg/dL (0.2-1.0); Total Protein 6.3 g/dL (6.4-8.2)
[2020-06-19] MEDS: metroNIDAZOLE 500MG/100ML 100 ML IV SCH ×3 (05:47→21:30)
[2020-06-19] MEDS: fentaNYL Drip 2500mCg/250mlNS 250 ML IV SCH (07:36)
[2020-06-19] MEDS ORDERED: SODIUM CHLORIDE 0.9% 500 ML IV ONE ×2 (08:45→09:30)
[2020-06-19] MEDS: SOD CHL 0.45% 1,000 ML IV SCH ×2 (08:45→20:02)
[2020-06-19] MEDS ORDERED: HYDROmorphone HCL 2 MG/ML VL IV PRN (08:45)
[2020-06-19] MEDS: PANTOPRAZOLE 40 MG/10 ML VIAL INJ IV SCH (09:40)
[2020-06-19] MEDS: METOPROLOL TARTRATE 50 MG TAB PO SCH ×2 (09:41→21:25)
[2020-06-19] MEDS: levoFLOXacin 500MG 100 ML IV SCH (09:41)
[2020-06-19] MEDS: HYDROmorphone HCL 2 MG/ML VL IV PRN ×5 (10:15→20:44)
[2020-06-19] MEDS: ONDANSETRON HCL 4 MG/2 ML VIAL IV PRN (15:30)
[2020-06-19] MEDS ORDERED: LORazepam 2MG/ML-1ML VIAL ONE (20:40)
[2020-06-20] VITALS (14 sets, daily range): BP systolic 114–157; BP diastolic 60–96
[2020-06-20] MEDS ORDERED: LORazepam 2MG/ML-1ML VIAL IV PRN
[2020-06-20] MEDS: HYDROmorphone HCL 2 MG/ML VL IV PRN ×7 (00:46→20:59)
[2020-06-20] MEDS: LORazepam 2MG/ML-1ML VIAL IV PRN ×2 (00:47→09:55)
[2020-06-20] MEDS: SOD CHL 0.45% 1,000 ML IV SCH ×2 (04:53→14:45)
[2020-06-20 05:15] LABS: Basophils # (auto) 0 10 ^3/uL (0-0.2); Basophils % (auto) 0.3 % (0.0-2.0); Eosinophils # (auto) 0.1 10 ^3/uL (0-0.8); Eosinophils % (auto) 1.3 % (0.0-7.0); Hematocrit 39.4 % (41.0-53.0); Hemoglobin 13.3 g/dL (13.5-17.5); Lymphocytes # (auto) 0.9 10 ^3/uL (0.4-5.4); Lymphocytes % (auto) 7.8 % (10.0-50.0); Mean Corpuscular Hemoglobin 28.5 pg (28.0-32.0); Mean Corpuscular Hgb Conc. 33.7 g/dL (32.0-36.0); Mean Corpuscular Volume 84.7 fL (80.0-100.0); Monocytes % (auto) 8.4 % (0.0-12.0); Neutrophils # (auto) 9.5 10 ^3/uL (1.6-8.6); Neutrophils % (auto) 82.2 % (37.0-80.0); Nucleated Red Blood Cells % 0.3 %; Platelet Count (auto) 266 10^3/uL (140-450); Red Blood Cells 4.66 10^6/uL (4.5-5.90); Red Cell Distribution Width 14.1 % (11.8-14.3); White Blood Cell 11.6 10^3/uL (4.4-10.8)
[2020-06-20 05:26] LABS: Albumin 2.6 g/dL (3.4-5.0); Calcium 7.8 mg/dL (8.5-10.1); Potassium 3.2 mmol/L (3.5-5.1)
[2020-06-20 05:29] LABS: BUN/Creatinine Ratio 10.3; Bilirubin, Total 1.1 mg/dL (0.2-1.0); Total Protein 6.7 g/dL (6.4-8.2)
[2020-06-20] MEDS: ACCU-CHEK COMFORT CURVE STRIP VI SCH ×3 (05:47→17:29)
[2020-06-20] MEDS: metroNIDAZOLE 500MG/100ML 100 ML IV SCH ×3 (05:47→21:04)
[2020-06-20] MEDS: InsuLIN REG 1unit/0.01ml Soln (100units/ml) SC SCH ×3 (05:56→17:29)
[2020-06-20] MEDS: POTASSIUM CHL 20MEQ/100ML 100 ML IV SCH ×3 (08:44→18:06)
[2020-06-20] MEDS: METOPROLOL TARTRATE 50 MG TAB PO SCH ×2 (09:42→21:13)
[2020-06-20] MEDS: PANTOPRAZOLE 40 MG/10 ML VIAL INJ IV SCH (09:47)
[2020-06-20] MEDS: levoFLOXacin 500MG 100 ML IV SCH (09:48)
[2020-06-20] MEDS ORDERED: POTASSIUM CHL 20MEQ/100ML 100 ML IV SCH (17:35)
[2020-06-20] MEDS ORDERED: ACETAMINOPHEN 325 MG TAB PO PRN (22:15)
[2020-06-21] MEDS: HYDROmorphone HCL 2 MG/ML VL IV PRN ×8 (00:16→23:47)
[2020-06-21] MEDS: ACCU-CHEK COMFORT CURVE STRIP VI SCH ×5 (00:16→23:47)
[2020-06-21] MEDS: InsuLIN REG 1unit/0.01ml Soln (100units/ml) SC SCH ×5 (00:17→23:59)
[2020-06-21] MEDS: SOD CHL 0.45% 1,000 ML IV SCH ×3 (00:45→20:28)
[2020-06-21 05:30] VITALS: BP 119/75
[2020-06-21] MEDS: metroNIDAZOLE 500MG/100ML 100 ML IV SCH ×3 (05:41→22:25)
[2020-06-21 08:03] LABS: Basophils # (auto) 0.1 10 ^3/uL (0-0.2); Basophils % (auto) 0.8 % (0.0-2.0); Eosinophils # (auto) 0.3 10 ^3/uL (0-0.8); Eosinophils % (auto) 2.8 % (0.0-7.0); Hematocrit 40.4 % (41.0-53.0); Hemoglobin 13.4 g/dL (13.5-17.5); Lymphocytes # (auto) 1.2 10 ^3/uL (0.4-5.4); Lymphocytes % (auto) 10.8 % (10.0-50.0); Mean Corpuscular Hemoglobin 27.9 pg (28.0-32.0); Mean Corpuscular Hgb Conc. 33.1 g/dL (32.0-36.0); Mean Corpuscular Volume 84.3 fL (80.0-100.0); Monocytes # (auto) 0.9 10 ^3/uL (0-1.3); Monocytes % (auto) 8.3 % (0.0-12.0); Neutrophils # (auto) 8.7 10 ^3/uL (1.6-8.6); Neutrophils % (auto) 77.3 % (37.0-80.0); Nucleated Red Blood Cells % 0.1 %; Platelet Count (auto) 328 10^3/uL (140-450); Red Cell Distribution Width 13.7 % (11.8-14.3); White Blood Cell 11.2 10^3/uL (4.4-10.8)
[2020-06-21 08:22] LABS: Albumin 2.3 g/dL (3.4-5.0); BUN/Creatinine Ratio 17.3; Calcium 8.5 mg/dL (8.5-10.1); Potassium 3.7 mmol/L (3.5-5.1)
[2020-06-21 08:25] LABS: Bilirubin, Total 0.6 mg/dL (0.2-1.0); Total Protein 6.9 g/dL (6.4-8.2)
[2020-06-21 09:00] VITALS: BP 136/73
[2020-06-21] MEDS: levoFLOXacin 500MG 100 ML IV SCH (09:59)
[2020-06-21] MEDS: PANTOPRAZOLE 40 MG/10 ML VIAL INJ IV SCH (09:59)
[2020-06-21] MEDS: METOPROLOL TARTRATE 50 MG TAB PO SCH ×2 (10:00→22:26)
[2020-06-21 13:00] VITALS: BP 138/80
[2020-06-21 17:00] VITALS: BP 158/91
[2020-06-21 22:00] VITALS: BP 148/92
[2020-06-21] MEDS: LORazepam 2MG/ML-1ML VIAL IV PRN (22:26)
[2020-06-22] MEDS: HYDROmorphone HCL 2 MG/ML VL IV PRN ×7 (03:02→21:24)
[2020-06-22] MEDS: metroNIDAZOLE 500MG/100ML 100 ML IV SCH ×3 (04:29→21:23)
[2020-06-22] MEDS: LORazepam 2MG/ML-1ML VIAL IV PRN ×3 (04:30→23:07)
[2020-06-22] MEDS: ACCU-CHEK COMFORT CURVE STRIP VI SCH ×3 (04:31→17:44)
[2020-06-22] MEDS: InsuLIN REG 1unit/0.01ml Soln (100units/ml) SC SCH ×3 (04:46→17:45)
[2020-06-22 05:00] VITALS: BP 147/83
[2020-06-22 06:17] LABS: Basophils # (auto) 0.1 10 ^3/uL (0-0.2); Eosinophils # (auto) 0.4 10 ^3/uL (0-0.8); Eosinophils % (auto) 3.7 % (0.0-7.0); Hematocrit 41.4 % (41.0-53.0); Hemoglobin 13.9 g/dL (13.5-17.5); Lymphocytes # (auto) 1.2 10 ^3/uL (0.4-5.4); Mean Corpuscular Hemoglobin 28.2 pg (28.0-32.0); Mean Corpuscular Hgb Conc. 33.5 g/dL (32.0-36.0); Mean Corpuscular Volume 84.1 fL (80.0-100.0); Monocytes # (auto) 0.8 10 ^3/uL (0-1.3); Monocytes % (auto) 8.4 % (0.0-12.0); Neutrophils # (auto) 7.4 10 ^3/uL (1.6-8.6); Neutrophils % (auto) 74.9 % (37.0-80.0); Nucleated Red Blood Cells % 0.1 %; Platelet Count (auto) 379 10^3/uL (140-450); Red Blood Cells 4.92 10^6/uL (4.5-5.90); Red Cell Distribution Width 13.9 % (11.8-14.3); White Blood Cell 9.8 10^3/uL (4.4-10.8)
[2020-06-22 06:36] LABS: Albumin 2.5 g/dL (3.4-5.0); Calcium 8.7 mg/dL (8.5-10.1); Potassium 3.1 mmol/L (3.5-5.1)
[2020-06-22 06:41] LABS: BUN/Creatinine Ratio 17.7; Bilirubin, Total 0.5 mg/dL (0.2-1.0); Total Protein 6.9 g/dL (6.4-8.2)
[2020-06-22] MEDS: SOD CHL 0.45% 1,000 ML IV SCH ×3 (06:45→21:35)
[2020-06-22 09:00] VITALS: BP 146/96
[2020-06-22] MEDS: levoFLOXacin 500MG 100 ML IV SCH (10:07)
[2020-06-22] MEDS: PANTOPRAZOLE 40 MG/10 ML VIAL INJ IV SCH (10:07)
[2020-06-22] MEDS: METOPROLOL TARTRATE 50 MG TAB PO SCH ×2 (10:11→21:23)
[2020-06-22 13:00] VITALS: BP 131/83
[2020-06-22 16:29] VITALS: BP 138/74
[2020-06-22 22:12] VITALS: BP 140/86
[2020-06-23] VITALS (7 sets, daily range): BP systolic 131–156; BP diastolic 62–98
[2020-06-23] MEDS: HYDROmorphone HCL 2 MG/ML VL IV PRN ×7 (00:40→23:10)
[2020-06-23] MEDS: InsuLIN REG 1unit/0.01ml Soln (100units/ml) SC SCH ×4 (00:41→18:00)
[2020-06-23] MEDS: ACCU-CHEK COMFORT CURVE STRIP VI SCH ×4 (05:23→18:02)
[2020-06-23] MEDS: metroNIDAZOLE 500MG/100ML 100 ML IV SCH ×3 (05:24→21:45)
[2020-06-23] MEDS: ONDANSETRON HCL 4 MG/2 ML VIAL IV PRN ×3 (08:16→16:25)
[2020-06-23] MEDS: PANTOPRAZOLE 40 MG/10 ML VIAL INJ IV SCH (09:57)
[2020-06-23] MEDS: levoFLOXacin 500MG 100 ML IV SCH (09:57)
[2020-06-23] MEDS: METOPROLOL TARTRATE 50 MG TAB PO SCH ×2 (09:58→21:45)
[2020-06-23] MEDS: SOD CHL 0.45% 1,000 ML IV SCH ×2 (12:45→20:51)
[2020-06-23] MEDS: LORazepam 2MG/ML-1ML VIAL IV PRN (21:45)
[2020-06-24] MEDS: ACCU-CHEK COMFORT CURVE STRIP VI SCH ×5 (00:16→23:36)
[2020-06-24] MEDS: InsuLIN REG 1unit/0.01ml Soln (100units/ml) SC SCH ×5 (00:18→23:48)
[2020-06-24] MEDS: HYDROmorphone HCL 2 MG/ML VL IV PRN ×7 (02:20→23:47)
[2020-06-24] MEDS: metroNIDAZOLE 500MG/100ML 100 ML IV SCH ×3 (05:12→22:13)
[2020-06-24 05:43] VITALS: BP 144/81
[2020-06-24] MEDS: ONDANSETRON HCL 4 MG/2 ML VIAL IV PRN ×2 (08:23→17:43)
[2020-06-24 09:00] VITALS: BP 142/89
[2020-06-24] MEDS: levoFLOXacin 500MG 100 ML IV SCH (09:23)
[2020-06-24] MEDS: PANTOPRAZOLE 40 MG/10 ML VIAL INJ IV SCH (09:23)
[2020-06-24] MEDS: METOPROLOL TARTRATE 50 MG TAB PO SCH ×2 (09:24→22:12)
[2020-06-24] MEDS: SOD CHL 0.45% 1,000 ML IV SCH ×3 (09:33→20:45)
[2020-06-24 13:00] VITALS: BP 142/83
[2020-06-24 15:44] LABS: Calcium 8.1 mg/dL (8.5-10.1); Potassium 3.3 mmol/L (3.5-5.1)
[2020-06-24 15:46] LABS: BUN/Creatinine Ratio 9.9
[2020-06-24] MEDS ORDERED: POTASSIUM CHL 20 Meq TABLET PO ONE (16:15)
[2020-06-24 17:00] VITALS: BP 143/69
[2020-06-24] MEDS: LORazepam 2MG/ML-1ML VIAL IV PRN (22:14)
[2020-06-25] VITALS (7 sets, daily range): BP systolic 133–156; BP diastolic 70–92
[2020-06-25] MEDS: HYDROmorphone HCL 2 MG/ML VL IV PRN ×6 (03:51→20:43)
[2020-06-25] MEDS: ACCU-CHEK COMFORT CURVE STRIP VI SCH ×4 (05:40→23:36)
[2020-06-25] MEDS: metroNIDAZOLE 500MG/100ML 100 ML IV SCH ×3 (05:40→22:06)
[2020-06-25] MEDS: InsuLIN REG 1unit/0.01ml Soln (100units/ml) SC SCH ×4 (05:46→23:46)
[2020-06-25] MEDS: PANTOPRAZOLE 40 MG/10 ML VIAL INJ IV SCH (10:14)
[2020-06-25] MEDS: levoFLOXacin 500MG 100 ML IV SCH (10:14)
[2020-06-25] MEDS: METOPROLOL TARTRATE 50 MG TAB PO SCH ×2 (10:15→22:06)
[2020-06-25] MEDS: SOD CHL 0.45% 1,000 ML IV SCH (20:43)
[2020-06-25] MEDS: LORazepam 2MG/ML-1ML VIAL IV PRN (22:06)
[2020-06-26] MEDS: HYDROmorphone HCL 2 MG/ML VL IV PRN ×3 (00:43→09:55)
[2020-06-26] MEDS: SOD CHL 0.45% 1,000 ML IV SCH ×2 (00:45→09:57)
[2020-06-26] MEDS: metroNIDAZOLE 500MG/100ML 100 ML IV SCH (05:31)
[2020-06-26] MEDS: ACCU-CHEK COMFORT CURVE STRIP VI SCH ×2 (05:31→12:00)
[2020-06-26] MEDS: InsuLIN REG 1unit/0.01ml Soln (100units/ml) SC SCH ×2 (05:34→12:00)
[2020-06-26 05:42] VITALS: BP 148/87
[2020-06-26 09:00] VITALS: BP 155/90
[2020-06-26] MEDS: PANTOPRAZOLE 40 MG/10 ML VIAL INJ IV SCH (09:55)
[2020-06-26] MEDS: levoFLOXacin 500MG 100 ML IV SCH (09:55)
[2020-06-26] MEDS: METOPROLOL TARTRATE 50 MG TAB PO SCH (09:56)
[2020-06-26 11:50] VITALS: BP 155/90
== END 2020-06-26 13:55 | disposition home or self-care (01) | DRG 853 ==
LOC: ER 03:11 → TELE 03:12 → TELE-CENTR 09:51 → ICU WEST 06-18 18:30 → CENTRAL 06-20 10:02 → TELE-CENTR 06-20 10:12
PROVIDERS: ADMIT Nurse Practitioner; ATTEND Family Medicine
PROC: 5A09357 Assistance with Respiratory Ventilation, Less than 24 Consecutive Hours, Continuous Positive Airway Pressure (ICD-10-PCS; 2020-06-17)
PROC: 0FJ44ZZ Inspection of Gallbladder, Percutaneous Endoscopic Approach (ICD-10-PCS; 2020-06-18)
PROC: 0W9F0ZZ Drainage of Abdominal Wall, Open Approach (ICD-10-PCS; 2020-06-18)
PROC: 0BH17EZ Insertion of Endotracheal Airway into Trachea, Via Natural or Artificial Opening (ICD-10-PCS; 2020-06-18)
PROC: 0FT40ZZ Resection of Gallbladder, Open Approach (ICD-10-PCS; principal; 2020-06-18 15:45)
PROC: 5A09357 Assistance with Respiratory Ventilation, Less than 24 Consecutive Hours, Continuous Positive Airway Pressure (ICD-10-PCS; 2020-06-20)
PROC: 5A09457 Assistance with Respiratory Ventilation, 24-96 Consecutive Hours, Continuous Positive Airway Pressure (ICD-10-PCS; 2020-06-21)
DX: A41.9 Sepsis, unspecified organism (principal); K65.1 Peritoneal abscess; I50.43 Acute on chronic combined systolic (congestive) and diastolic (congestive) heart failure; J96.01 Acute respiratory failure with hypoxia; K80.00 Calculus of gallbladder with acute cholecystitis without obstruction; Z68.41 Body mass index [BMI] 40.0-44.9, adult; L02.211 Cutaneous abscess of abdominal wall; I11.0 Hypertensive heart disease with heart failure; E66.9 Obesity, unspecified; J44.9 Chronic obstructive pulmonary disease, unspecified; F41.9 Anxiety disorder, unspecified; Z20.828 Contact with and (suspected) exposure to other viral communicable diseases; K66.0 Peritoneal adhesions (postprocedural) (postinfection); E78.5 Hyperlipidemia, unspecified; E11.21 Type 2 diabetes mellitus with diabetic nephropathy; E11.40 Type 2 diabetes mellitus with diabetic neuropathy, unspecified; I25.10 Atherosclerotic heart disease of native coronary artery without angina pectoris; R34 Anuria and oliguria; Z83.3 Family history of diabetes mellitus; Z82.49 Family history of ischemic heart disease and other diseases of the circulatory system; Z90.49 Acquired absence of other specified parts of digestive tract; Z95.810 Presence of automatic (implantable) cardiac defibrillator
CPT/HCPCS: 36415; 36600; 71045; 74176; 76705; 78226; 80048; 80053; 81001; 82150; 82805; 82962; 83605; 83690; 83735; 84484; 85025; 85610; 85730; 87070; 87081; 87205; 87426; 94002; 94003; 94640; 94660; C9113; G0378; J0330; J1815; J1956; J2250; J2405; J2543; J3480; J3490

== ENCOUNTER 2022-01-11 19:00 | Inpatient (IN) | payer MEDICARE ==
[~2022-01-11] VITALS: Ht 180.3 cm; Wt 134.1 kg
[~2022-01-11 19:00] MED LIST changes: -INSLANTI SC; +INSU300I SC; -LEVO500T21 PO; +METF-370 PO; -METF500T PO; -METH5T PO; +SEMA2INJ SC; -SPIR25TA88 PO
[2022-01-11 20:26] LABS: Albumin 4.1 g/dL (3.4-5.0); Calcium 8.8 mg/dL (8.5-10.1); Potassium 3.5 mmol/L (3.5-5.1)
[2022-01-11 20:27] LABS: BUN/Creatinine Ratio 12.2
[2022-01-11 20:30] LABS: Total Protein 7.6 g/dL (6.4-8.2)
[2022-01-11 20:37] LABS: Basophils # (auto) 0.1 10 ^3/uL (0-0.2); Basophils % (auto) 1.1 % (0.0-2.0); Eosinophils # (auto) 0.2 10 ^3/uL (0-0.8); Eosinophils % (auto) 1.6 % (0.0-7.0); Hematocrit 51.4 % (41.0-53.0); Hemoglobin 17.6 g/dL (13.5-17.5); Lymphocytes # (auto) 2.2 10 ^3/uL (0.4-5.4); Lymphocytes % (auto) 18.6 % (10.0-50.0); Mean Corpuscular Hemoglobin 28.4 pg (28.0-32.0); Mean Corpuscular Hgb Conc. 34.3 g/dL (32.0-36.0); Mean Corpuscular Volume 82.7 fL (80.0-100.0); Monocytes # (auto) 0.9 10 ^3/uL (0-1.3); Monocytes % (auto) 7.5 % (0.0-12.0); Neutrophils # (auto) 8.3 10 ^3/uL (1.6-8.6); Neutrophils % (auto) 71.2 % (37.0-80.0); Nucleated Red Blood Cells % 0.1 %; Red Blood Cells 6.22 10^6/uL (4.5-5.90); Red Cell Distribution Width 13.8 % (11.8-14.3); White Blood Cell 11.6 10^3/uL (4.4-10.8)
[2022-01-11] MEDS ORDERED: IOHEXOL 300 MG/ML 100ML BOTTLE IJ ONE (21:49)
[2022-01-12] MEDS ORDERED: MORPHINE SULFATE 4 MG/ML SYR/VIAL IV ONE (02:00)
[2022-01-12] MEDS ORDERED: ONDANSETRON HCL 4 MG/2 ML VIAL IV ONE (02:00)
[2022-01-12] MEDS ORDERED: HYDROmorphone HCL 2 MG/ML VL IV ONE ×2 (04:00)
[2022-01-12] MEDS ORDERED: CLINDAMYCIN 600MG IV 50 ML IV ONE (06:45)
[2022-01-12] MEDS ORDERED: DEXTROSE (50%) 50ML SYRG IV PRN ×2 (07:15→11:45)
[2022-01-12] MEDS ORDERED: MORPHINE SULFATE INJECTION 2 MG/ML SYRG IV PRN (07:15)
[2022-01-12] MEDS ORDERED: NITROGLYCERIN 0.4 MG SL TAB SL PRN (07:15)
[2022-01-12] MEDS ORDERED: MORPHINE SULFATE 4 MG/ML SYR/VIAL IV PRN (07:15)
[2022-01-12] MEDS: SODIUM CHLORIDE 0.9% 1,000 ML IV SCH ×2 (08:25→19:45)
[2022-01-12 09:30] VITALS: BP 134/90
[2022-01-12] MEDS ORDERED: TRAM50TA2 PO (10:02)
[2022-01-12] MEDS ORDERED: INSU100I44 SC (10:09)
[2022-01-12] MEDS: levoFLOXacin 500MG 100 ML IV SCH (11:27)
[2022-01-12] MEDS ORDERED: hydrALAZINE HCL 20 MG/ML VL IV PRN (11:45)
[2022-01-12 12:00] VITALS: BP 152/82
[2022-01-12] MEDS ORDERED: hydrALAZINE HCL 20 MG/ML VL IV SCH (12:00)
[2022-01-12] MEDS ORDERED: InsuLIN REG 1unit/0.01ml Soln (100units/ml) SC SCH (12:00)
[2022-01-12] MEDS ORDERED: ACCU-CHEK COMFORT CURVE STRIP VI SCH (12:00)
[2022-01-12] MEDS: ACCU-CHEK COMFORT CURVE STRIP VI SCH ×3 (12:23→23:46)
[2022-01-12 12:28] LABS: INR 1.05 (0.9-1.15)
[2022-01-12] MEDS: InsuLIN REG 1unit/0.01ml Soln (100units/ml) SC SCH ×3 (12:49→23:46)
[2022-01-12] MEDS: CLINDAMYCIN 600MG IV 50 ML IV SCH ×2 (14:30→21:09)
[2022-01-12 16:00] VITALS: BP 134/88
[2022-01-12] MEDS: HYDROmorphone HCL 2 MG/ML VL IV PRN ×2 (16:00→20:52)
[2022-01-12 22:00] VITALS: BP 148/93
[2022-01-13] MEDS: SODIUM CHLORIDE 0.9% 1,000 ML IV SCH ×2 (01:52→21:28)
[2022-01-13] MEDS: HYDROmorphone HCL 2 MG/ML VL IV PRN ×10 (01:53→23:48)
[2022-01-13 05:02] VITALS: BP 147/83
[2022-01-13] MEDS: InsuLIN REG 1unit/0.01ml Soln (100units/ml) SC SCH ×4 (05:21→23:54)
[2022-01-13] MEDS: CLINDAMYCIN 600MG IV 50 ML IV SCH ×3 (05:22→21:52)
[2022-01-13] MEDS: ACCU-CHEK COMFORT CURVE STRIP VI SCH ×4 (05:23→23:51)
[2022-01-13 06:59] LABS: Basophils # (auto) 0 10 ^3/uL (0-0.2); Basophils % (auto) 0.5 % (0.0-2.0); Eosinophils # (auto) 0.2 10 ^3/uL (0-0.8); Eosinophils % (auto) 2.3 % (0.0-7.0); Hematocrit 42.9 % (41.0-53.0); Hemoglobin 14.9 g/dL (13.5-17.5); Lymphocytes % (auto) 14.2 % (10.0-50.0); Mean Corpuscular Hemoglobin 28.5 pg (28.0-32.0); Mean Corpuscular Hgb Conc. 34.8 g/dL (32.0-36.0); Mean Corpuscular Volume 81.8 fL (80.0-100.0); Monocytes # (auto) 0.6 10 ^3/uL (0-1.3); Monocytes % (auto) 8.5 % (0.0-12.0); Neutrophils # (auto) 5.2 10 ^3/uL (1.6-8.6); Neutrophils % (auto) 74.5 % (37.0-80.0); Nucleated Red Blood Cells % 0.2 %; Red Blood Cells 5.24 10^6/uL (4.5-5.90); Red Cell Distribution Width 13.8 % (11.8-14.3); White Blood Cell 6.9 10^3/uL (4.4-10.8)
[2022-01-13 07:15] LABS: Potassium 3.4 mmol/L (3.5-5.1)
[2022-01-13 07:19] LABS: Albumin 3.3 g/dL (3.4-5.0); BUN/Creatinine Ratio 13.9; Calcium 8.3 mg/dL (8.5-10.1)
[2022-01-13 07:37] LABS: Bilirubin, Total 1.3 mg/dL (0.2-1.0); Total Protein 6.2 g/dL (6.4-8.2)
[2022-01-13] MEDS ORDERED: MEPERIDINE HCL (50 MG/ML) 1 ML VIAL ONE (08:29)
[2022-01-13] MEDS ORDERED: MIDAZOLAM HCL 2MG/2ML 2ml VIAL (1mg/ml) ONE (08:29)
[2022-01-13] MEDS ORDERED: fentaNYL CITRATE 100 MCG/2 ML VL ONE ×2 (08:29→09:55)
[2022-01-13] MEDS ORDERED: BUPIVACAINE W/ EPINEPH 0.25% INJ 50ML MDV ONE (08:32)
[2022-01-13] MEDS ORDERED: ACCU-CHEK COMFORT CURVE STRIP VI ONE (09:00)
[2022-01-13] MEDS ORDERED: ePHEDrine SULFATE 50 MG/ML AMP IV PRN (09:00)
[2022-01-13] MEDS ORDERED: MIDAZOLAM HCL 2MG/2ML 2ml VIAL (1mg/ml) IV PRN (09:00)
[2022-01-13] MEDS ORDERED: ONDANSETRON HCL 4 MG/2 ML VIAL IV PRN (09:00)
[2022-01-13] MEDS ORDERED: MORPHINE SULFATE 4 MG/ML SYR/VIAL IV PRN (09:00)
[2022-01-13] MEDS ORDERED: LABETALOL HCL 5 MG/ML 4ML SYRINGE IV PRN (09:00)
[2022-01-13] MEDS ORDERED: SUCCINYLCHOLINE CHLORIDE 20 MG/ML 10ML VIAL IV ONE (09:03)
[2022-01-13] MEDS ORDERED: DexAMETHasone SOD PHOS 10MG/1ML VIAL INJ ONE (09:41)
[2022-01-13] MEDS ORDERED: PROPOFOL 10 MG/ML 20 ML IV ONE (09:41)
[2022-01-13] MEDS ORDERED: POVIDONE IODINE 10 % TOPICAL OINT 30GM TOP ONE (10:40)
[2022-01-13] MEDS ORDERED: MEPERIDINE HCL (25 MG/ML) 1ML VIAL IV ONE (12:10)
[2022-01-13] MEDS ORDERED: MEPERIDINE HCL (25 MG/ML) 1ML VIAL ONE (12:12)
[2022-01-13 13:30] VITALS: BP 147/84
[2022-01-13] MEDS: levoFLOXacin 500MG 100 ML IV SCH (14:01)
[2022-01-13 17:00] VITALS: BP 153/88
[2022-01-13 22:00] VITALS: BP 150/94
[2022-01-14] MEDS: HYDROmorphone HCL 2 MG/ML VL IV PRN ×7 (02:47→22:06)
[2022-01-14 05:00] VITALS: BP 135/83
[2022-01-14] MEDS: CLINDAMYCIN 600MG IV 50 ML IV SCH ×3 (05:55→22:03)
[2022-01-14] MEDS: ACCU-CHEK COMFORT CURVE STRIP VI SCH ×3 (05:55→18:01)
[2022-01-14] MEDS: InsuLIN REG 1unit/0.01ml Soln (100units/ml) SC SCH ×3 (05:56→18:02)
[2022-01-14 09:00] VITALS: BP 154/84
[2022-01-14] MEDS ORDERED: LIDOCAINE 1% (LOCAL ANESTH.) PF 5ml SDV ID ONE (10:00)
[2022-01-14] MEDS: levoFLOXacin 500MG 100 ML IV SCH (10:59)
[2022-01-14] MEDS: PANTOPRAZOLE 40 MG/10 ML VIAL INJ IV SCH (10:59)
[2022-01-14] MEDS: ENOXAPARIN SOD 40 MG/0.4 ML SYRINGE SC SCH (11:00)
[2022-01-14] MEDS: SODIUM CHLOR 0.9% PF (SALINE LOCK) 10ML VIAL/SYR IV SCH ×2 (11:00→22:03)
[2022-01-14] MEDS: ONDANSETRON HCL 4 MG/2 ML VIAL IV PRN (11:07)
[2022-01-14] MEDS ORDERED: TPN PER PHARMACY 0 ML IV SCH (12:00)
[2022-01-14 13:00] VITALS: BP 145/84
[2022-01-14] MEDS: SODIUM CHLORIDE 0.9% 1,000 ML IV SCH ×2 (13:07→22:03)
[2022-01-14] MEDS ORDERED: DEXTROSE (50%) 50ML SYRG IV SCH (13:30)
[2022-01-14 15:43] LABS: BUN/Creatinine Ratio 13.4; Calcium 8.9 mg/dL (8.5-10.1); Magnesium 2.6 mg/dL (1.6-2.6); Phosphorus 2.5 mg/dL (2.5-4.90); Potassium 3.5 mmol/L (3.5-5.1)
[2022-01-14 17:00] VITALS: BP 141/82
[2022-01-14] MEDS: AMINO ACID INFUSION IN D10W 1,000 ML IV NR (22:03)
[2022-01-14 22:04] VITALS: BP 152/105
[2022-01-15] MEDS: ACCU-CHEK COMFORT CURVE STRIP VI SCH ×5 (00:05→23:51)
[2022-01-15] MEDS: InsuLIN REG 1unit/0.01ml Soln (100units/ml) SC SCH ×5 (00:10→23:54)
[2022-01-15] MEDS: HYDROmorphone HCL 2 MG/ML VL IV PRN ×8 (01:45→23:58)
[2022-01-15 05:20] VITALS: BP 179/108
[2022-01-15 05:39] VITALS: BP 144/84
[2022-01-15] MEDS: CLINDAMYCIN 600MG IV 50 ML IV SCH ×3 (06:00→22:16)
[2022-01-15 07:02] LABS: Albumin 3.1 g/dL (3.4-5.0); Calcium 8.6 mg/dL (8.5-10.1); Magnesium 2.3 mg/dL (1.6-2.6); Potassium 3.3 mmol/L (3.5-5.1)
[2022-01-15 07:08] LABS: BUN/Creatinine Ratio 17.1; Bilirubin, Total 1.1 mg/dL (0.2-1.0); Phosphorus 2.6 mg/dL (2.5-4.90); Total Protein 6.6 g/dL (6.4-8.2)
[2022-01-15 08:37] VITALS: BP_SYST 157; BP_SYST 161; BP_DIAS 92; BP_DIAS 95
[2022-01-15] MEDS: levoFLOXacin 500MG 100 ML IV SCH (09:31)
[2022-01-15] MEDS: PANTOPRAZOLE 40 MG/10 ML VIAL INJ IV SCH (09:31)
[2022-01-15] MEDS: ENOXAPARIN SOD 40 MG/0.4 ML SYRINGE SC SCH (09:31)
[2022-01-15] MEDS: SODIUM CHLOR 0.9% PF (SALINE LOCK) 10ML VIAL/SYR IV SCH ×2 (09:36→22:15)
[2022-01-15] MEDS: SODIUM CHLORIDE 0.9% 1,000 ML IV SCH ×2 (09:38→20:18)
[2022-01-15] MEDS: POTASSIUM CHL 20MEQ/100ML 100 ML IV SCH ×2 (12:29→14:52)
[2022-01-15] MEDS: LORazepam 2MG/ML-1ML VIAL IV PRN ×2 (12:42→22:16)
[2022-01-15 13:00] VITALS: BP 148/87
[2022-01-15 17:00] VITALS: BP 166/98
[2022-01-15] MEDS: AMINO ACID INFUSION IN D10W 1,000 ML IV NR (19:49)
[2022-01-15] MEDS ORDERED: TPN PER PHARMACY IV NR ×9 (20:00)
[2022-01-15 22:07] VITALS: BP 161/93
[2022-01-16] VITALS (9 sets, daily range): BP systolic 134–186; BP diastolic 67–90
[2022-01-16] MEDS: HYDROmorphone HCL 2 MG/ML VL IV PRN ×7 (02:36→20:21)
[2022-01-16] MEDS: ACCU-CHEK COMFORT CURVE STRIP VI SCH ×4 (05:11→23:55)
[2022-01-16] MEDS: CLINDAMYCIN 600MG IV 50 ML IV SCH ×3 (05:11→22:00)
[2022-01-16] MEDS: InsuLIN REG 1unit/0.01ml Soln (100units/ml) SC SCH ×4 (05:30→23:42)
[2022-01-16 07:14] LABS: Chloride 104 mmol/L (98-107); Potassium 3.9 mmol/L (3.5-5.1); Sodium 137 mmol/L (136-145)
[2022-01-16 07:20] LABS: Alanine Aminotransferase 16 U/L (16-61); Albumin 2.9 g/dL (3.4-5.0); Anion Gap 6 (5-15); Aspartate Aminotransferase 28 U/L (15-37); BUN/Creatinine Ratio 17.8; Blood Urea Nitrogen 13 mg/dL (7-18); Calcium 8.4 mg/dL (8.5-10.1); Carbon Dioxide 27 mmol/L (21-32); GFR African American 146 mL/min; GFR Non-African American 121 mL/min; Glucose 226 mg/dL (74-106); Magnesium 2.7 mg/dL (1.6-2.6)
[2022-01-16 07:23] LABS: Alkaline Phosphatase 98 U/L (45-117); Phosphorus 2.5 mg/dL (2.5-4.90); Total Protein 6.8 g/dL (6.4-8.2)
[2022-01-16] MEDS: ONDANSETRON HCL 4 MG/2 ML VIAL IV PRN (08:36)
[2022-01-16 09:21] LABS: Basophils # (auto) 0 10 ^3/uL (0-0.2); Basophils % (auto) 0.4 % (0.0-2.0); Eosinophils # (auto) 0.1 10 ^3/uL (0-0.8); Eosinophils % (auto) 1.6 % (0.0-7.0); Hematocrit 44.7 % (41.0-53.0); Hemoglobin 15.3 g/dL (13.5-17.5); Lymphocytes % (auto) 12.6 % (10.0-50.0); Mean Corpuscular Hemoglobin 28.2 pg (28.0-32.0); Mean Corpuscular Hgb Conc. 34.3 g/dL (32.0-36.0); Mean Corpuscular Volume 82.3 fL (80.0-100.0); Monocytes % (auto) 13.3 % (0.0-12.0); Neutrophils # (auto) 5.5 10 ^3/uL (1.6-8.6); Neutrophils % (auto) 72.1 % (37.0-80.0); Red Blood Cells 5.43 10^6/uL (4.5-5.90); Red Cell Distribution Width 13.6 % (11.8-14.3); White Blood Cell 7.7 10^3/uL (4.4-10.8)
[2022-01-16] MEDS: SODIUM CHLOR 0.9% PF (SALINE LOCK) 10ML VIAL/SYR IV SCH ×2 (10:16→22:00)
[2022-01-16] MEDS: levoFLOXacin 500MG 100 ML IV SCH (10:16)
[2022-01-16] MEDS: ENOXAPARIN SOD 40 MG/0.4 ML SYRINGE SC SCH (10:16)
[2022-01-16] MEDS: PANTOPRAZOLE 40 MG/10 ML VIAL INJ IV SCH (10:17)
[2022-01-16] MEDS: SODIUM CHLORIDE 0.9% 1,000 ML IV SCH (11:16)
[2022-01-16] MEDS: LORazepam 2MG/ML-1ML VIAL IV PRN (17:58)
[2022-01-16] MEDS: TPN PER PHARMACY IV NR ×8 (20:22)
[2022-01-17] MEDS: HYDROmorphone HCL 2 MG/ML VL IV PRN ×10 (00:01→21:37)
[2022-01-17 05:00] VITALS: BP 133/71
[2022-01-17] MEDS: SODIUM CHLORIDE 0.9% 1,000 ML IV SCH (05:20)
[2022-01-17] MEDS: CLINDAMYCIN 600MG IV 50 ML IV SCH ×3 (06:00→21:37)
[2022-01-17] MEDS: InsuLIN REG 1unit/0.01ml Soln (100units/ml) SC SCH ×3 (06:00→17:55)
[2022-01-17] MEDS: ACCU-CHEK COMFORT CURVE STRIP VI SCH ×3 (06:00→17:55)
[2022-01-17 07:33] LABS: Basophils # (auto) 0.1 10 ^3/uL (0-0.2); Basophils % (auto) 0.8 % (0.0-2.0); Eosinophils # (auto) 0.2 10 ^3/uL (0-0.8); Eosinophils % (auto) 3.3 % (0.0-7.0); Hemoglobin 15.7 g/dL (13.5-17.5); Lymphocytes # (auto) 1.1 10 ^3/uL (0.4-5.4); Mean Corpuscular Hemoglobin 28.2 pg (28.0-32.0); Mean Corpuscular Volume 82.8 fL (80.0-100.0); Monocytes # (auto) 0.8 10 ^3/uL (0-1.3); Monocytes % (auto) 10.6 % (0.0-12.0); Neutrophils # (auto) 5.1 10 ^3/uL (1.6-8.6); Neutrophils % (auto) 70.3 % (37.0-80.0); Nucleated Red Blood Cells % 0.3 %; Red Blood Cells 5.56 10^6/uL (4.5-5.90); Red Cell Distribution Width 13.9 % (11.8-14.3); White Blood Cell 7.3 10^3/uL (4.4-10.8)
[2022-01-17 07:59] LABS: Potassium 3.7 mmol/L (3.5-5.1)
[2022-01-17 08:00] VITALS: BP 150/81
[2022-01-17 08:09] LABS: Albumin 2.7 g/dL (3.4-5.0); Bilirubin, Total 0.8 mg/dL (0.2-1.0); Calcium 8.3 mg/dL (8.5-10.1); Magnesium 2.6 mg/dL (1.6-2.6); Phosphorus 3.2 mg/dL (2.5-4.90); Total Protein 6.3 g/dL (6.4-8.2)
[2022-01-17 09:00] VITALS: BP 150/81
[2022-01-17] MEDS: levoFLOXacin 500MG 100 ML IV SCH (09:25)
[2022-01-17] MEDS: PANTOPRAZOLE 40 MG/10 ML VIAL INJ IV SCH (09:26)
[2022-01-17] MEDS: SODIUM CHLOR 0.9% PF (SALINE LOCK) 10ML VIAL/SYR IV SCH ×2 (09:26→21:38)
[2022-01-17] MEDS: ENOXAPARIN SOD 40 MG/0.4 ML SYRINGE SC SCH (09:26)
[2022-01-17] MEDS ORDERED: LISI20TA28 PO (10:36)
[2022-01-17] MEDS ORDERED: CITA-77 PO (10:36)
[2022-01-17] MEDS ORDERED: GABA-339 PO (10:36)
[2022-01-17] MEDS ORDERED: METO-159 PO (10:36)
[2022-01-17] MEDS ORDERED: CLON0.1T PO (10:36)
[2022-01-17] MEDS ORDERED: TRAZ50TA2 PO (10:36)
[2022-01-17] MEDS ORDERED: AMLO-496 PO (10:36)
[2022-01-17] MEDS ORDERED: HYDR25TA5 PO (10:36)
[2022-01-17] MEDS ORDERED: ATOR10TA52 PO (10:36)
[2022-01-17] MEDS ORDERED: FUROSEMIDE 40 MG/4 ML VIAL IV ONE (12:30)
[2022-01-17 12:56] VITALS: BP 154/84
[2022-01-17] MEDS: ONDANSETRON HCL 4 MG/2 ML VIAL IV PRN (13:29)
[2022-01-17 17:00] VITALS: BP 132/74
[2022-01-17] MEDS: TPN PER PHARMACY IV NR ×8 (19:55)
[2022-01-17] MEDS ORDERED: SODIUM ACETATE IV NR ×8 (20:00)
[2022-01-17] MEDS ORDERED: SODIUM PHOSPHATES IV NR ×8 (20:00)
[2022-01-17] MEDS ORDERED: [UNRECOGNIZED DRUG - OTHER] IV NR ×8 (20:00)
[2022-01-17] MEDS ORDERED: FAT EMULSION IV NR ×8 (20:00)
[2022-01-17 22:00] VITALS: BP 146/80
[2022-01-18] MEDS: HYDROmorphone HCL 2 MG/ML VL IV PRN ×8 (00:38→23:50)
[2022-01-18 04:53] VITALS: BP 131/76
[2022-01-18] MEDS: InsuLIN REG 1unit/0.01ml Soln (100units/ml) SC SCH ×4 (05:11→17:38)
[2022-01-18] MEDS: ACCU-CHEK COMFORT CURVE STRIP VI SCH ×4 (05:12→17:38)
[2022-01-18] MEDS: CLINDAMYCIN 600MG IV 50 ML IV SCH ×3 (05:12→22:17)
[2022-01-18 06:18] LABS: Albumin 2.8 g/dL (3.4-5.0); Calcium 8.7 mg/dL (8.5-10.1); Magnesium 2.5 mg/dL (1.6-2.6); Potassium 3.7 mmol/L (3.5-5.1)
[2022-01-18 06:22] LABS: BUN/Creatinine Ratio 20.7; Bilirubin, Total 0.9 mg/dL (0.2-1.0); Phosphorus 3.7 mg/dL (2.5-4.90); Total Protein 6.6 g/dL (6.4-8.2)
[2022-01-18] MEDS: ENOXAPARIN SOD 40 MG/0.4 ML SYRINGE SC SCH (09:47)
[2022-01-18] MEDS: PANTOPRAZOLE 40 MG/10 ML VIAL INJ IV SCH (09:47)
[2022-01-18] MEDS: levoFLOXacin 500MG 100 ML IV SCH (09:47)
[2022-01-18] MEDS: SODIUM CHLOR 0.9% PF (SALINE LOCK) 10ML VIAL/SYR IV SCH ×2 (10:00→22:18)
[2022-01-18 10:04] VITALS: BP 137/82
[2022-01-18 12:36] VITALS: BP 123/73
[2022-01-18 16:40] VITALS: BP 125/68
[2022-01-18] MEDS ORDERED: TPN PER PHARMACY IV NR ×8 (20:00)
[2022-01-18 23:24] VITALS: BP 150/82
[2022-01-19] MEDS: InsuLIN REG 1unit/0.01ml Soln (100units/ml) SC SCH ×5 (00:01→22:40)
[2022-01-19] MEDS: HYDROmorphone HCL 2 MG/ML VL IV PRN ×6 (02:58→22:14)
[2022-01-19 05:00] VITALS: BP_SYST 133; BP_SYST 158; BP_DIAS 67; BP_DIAS 74
[2022-01-19 06:42] LABS: Albumin 2.7 g/dL (3.4-5.0); Calcium 8.5 mg/dL (8.5-10.1); Magnesium 1.9 mg/dL (1.6-2.6); Potassium 3.6 mmol/L (3.5-5.1)
[2022-01-19 06:46] LABS: BUN/Creatinine Ratio 27.1; Bilirubin, Total 0.9 mg/dL (0.2-1.0); Phosphorus 3.1 mg/dL (2.5-4.90); Total Protein 6.2 g/dL (6.4-8.2)
[2022-01-19] MEDS: ACCU-CHEK COMFORT CURVE STRIP VI SCH ×4 (06:47→17:35)
[2022-01-19] MEDS: CLINDAMYCIN 600MG IV 50 ML IV SCH ×3 (06:47→21:31)
[2022-01-19 09:00] VITALS: BP_SYST 124; BP_SYST 128; BP_DIAS 73; BP_DIAS 85
[2022-01-19] MEDS: PANTOPRAZOLE 40 MG/10 ML VIAL INJ IV SCH (09:22)
[2022-01-19] MEDS: levoFLOXacin 500MG 100 ML IV SCH (09:23)
[2022-01-19] MEDS: ENOXAPARIN SOD 40 MG/0.4 ML SYRINGE SC SCH (09:23)
[2022-01-19] MEDS: SODIUM CHLOR 0.9% PF (SALINE LOCK) 10ML VIAL/SYR IV SCH ×2 (10:00→21:42)
[2022-01-19] MEDS ORDERED: HYDROcodone-ACET 7.5/325MG TAB PO PRN (11:00)
[2022-01-19] MEDS ORDERED: DEXTROSE (50%) 50ML SYRG IV PRN (11:30)
[2022-01-19 12:27] VITALS: BP 143/88
[2022-01-19 17:00] VITALS: BP 148/84
[2022-01-19] MEDS: LORazepam 2MG/ML-1ML VIAL IV PRN (19:56)
[2022-01-19] MEDS ORDERED: TPN PER PHARMACY IV NR ×10 (20:00)
[2022-01-19 22:00] VITALS: BP 124/68
[2022-01-20] MEDS: ACCU-CHEK COMFORT CURVE STRIP VI SCH ×3 (00:40→12:37)
[2022-01-20] MEDS: HYDROmorphone HCL 2 MG/ML VL IV PRN ×2 (04:11→09:06)
[2022-01-20 05:00] VITALS: BP 117/70
[2022-01-20] MEDS: CLINDAMYCIN 600MG IV 50 ML IV SCH (05:52)
[2022-01-20] MEDS: InsuLIN REG 1unit/0.01ml Soln (100units/ml) SC SCH ×2 (05:54→12:37)
[2022-01-20] MEDS: levoFLOXacin 500MG 100 ML IV SCH (09:05)
[2022-01-20] MEDS: ENOXAPARIN SOD 40 MG/0.4 ML SYRINGE SC SCH (09:06)
[2022-01-20] MEDS ORDERED: AMPI500C8 PO (09:51)
[2022-01-20] MEDS: SODIUM CHLOR 0.9% PF (SALINE LOCK) 10ML VIAL/SYR IV SCH (10:16)
[2022-01-20 11:36] VITALS: BP 122/74
== END 2022-01-20 13:40 | disposition home or self-care (01) | DRG 908 ==
LOC: ER 19:01 → OVERFLOW 01-12 07:02 → CENTRAL 01-12 08:56
PROVIDERS: ADMIT Nurse Practitioner; ATTEND Internal Medicine
PROC: 02H633Z Insertion of Infusion Device into Right Atrium, Percutaneous Approach (ICD-10-PCS; 2022-01-12)
PROC: 0WCP0ZZ Extirpation of Matter from Gastrointestinal Tract, Open Approach (ICD-10-PCS; principal; 2022-01-13 09:17)
PROC: 3E0336Z Introduction of Nutritional Substance into Peripheral Vein, Percutaneous Approach (ICD-10-PCS; 2022-01-15)
DX: T85.79XA Infection and inflammatory reaction due to other internal prosthetic devices, implants and grafts, initial encounter (principal); K63.2 Fistula of intestine; L02.211 Cutaneous abscess of abdominal wall; F11.20 Opioid dependence, uncomplicated; L03.311 Cellulitis of abdominal wall; E66.01 Morbid (severe) obesity due to excess calories; E11.9 Type 2 diabetes mellitus without complications; E78.5 Hyperlipidemia, unspecified; I11.0 Hypertensive heart disease with heart failure; J44.9 Chronic obstructive pulmonary disease, unspecified; K76.0 Fatty (change of) liver, not elsewhere classified; N50.819 Testicular pain, unspecified; R32 Unspecified urinary incontinence; Z20.822 Contact with and (suspected) exposure to COVID-19; G89.29 Other chronic pain; F41.9 Anxiety disorder, unspecified; E87.6 Hypokalemia; Z88.0 Allergy status to penicillin; Z88.8 Allergy status to other drugs, medicaments and biological substances; Z68.39 Body mass index [BMI] 39.0-39.9, adult; Z82.49 Family history of ischemic heart disease and other diseases of the circulatory system; Z79.4 Long term (current) use of insulin
CPT/HCPCS: 36415; 36569; 71045; 74177; 80048; 80053; 82962; 83605; 83735; 84100; 84478; 85025; 85610; 86850; 86900; 86901; 87040; 87070; 87075; 87205; 93005; 96365; 96375; 96376; C9113; G0378; J0330; J1100; J1815; J1956; J2250; J2405; J2704; J3480; J3490; J7131

== ENCOUNTER 2022-01-22 12:07 | Inpatient (IN) | payer MEDICARE, OTHER ==
[~2022-01-22] VITALS: Ht 180.3 cm; Wt 128.0 kg
[~2022-01-22 12:07] MED LIST changes: +AMLO-496 PO; +AMPI500C8 PO; +ATOR10TA52 PO; -ATOR20TA PO; +CITA-77 PO; +CLON0.1T PO; +HYDR25TA5 PO; -INSU100I4 SC; +INSU100I44 SC; -LISI2.5T47 PO; +LISI20TA28 PO; -MET50T PO; -METF-370 PO; +METO-159 PO; -SEMA2INJ SC; +TRAZ50TA2 PO
[2022-01-22 12:45] LABS: Basophils # (auto) 0.1 10 ^3/uL (0-0.2); Basophils % (auto) 0.8 % (0.0-2.0); Eosinophils # (auto) 0.5 10 ^3/uL (0-0.8); Eosinophils % (auto) 3.7 % (0.0-7.0); Hematocrit 46.5 % (41.0-53.0); Hemoglobin 15.7 g/dL (13.5-17.5); Lymphocytes # (auto) 1.5 10 ^3/uL (0.4-5.4); Lymphocytes % (auto) 12.3 % (10.0-50.0); Mean Corpuscular Hemoglobin 27.8 pg (28.0-32.0); Mean Corpuscular Hgb Conc. 33.7 g/dL (32.0-36.0); Mean Corpuscular Volume 82.3 fL (80.0-100.0); Monocytes % (auto) 7.8 % (0.0-12.0); Neutrophils # (auto) 9.2 10 ^3/uL (1.6-8.6); Neutrophils % (auto) 75.4 % (37.0-80.0); Nucleated Red Blood Cells % 0.1 %; Red Blood Cells 5.65 10^6/uL (4.5-5.90); Red Cell Distribution Width 13.6 % (11.8-14.3); White Blood Cell 12.3 10^3/uL (4.4-10.8)
[2022-01-22 13:05] LABS: Albumin 3.1 g/dL (3.4-5.0); Calcium 8.4 mg/dL (8.5-10.1)
[2022-01-22 13:07] LABS: Lactic Acid w/Reflex 4.4 mmol/L (0.4-2.0)
[2022-01-22 13:10] LABS: BUN/Creatinine Ratio 5.1; Bilirubin, Total 0.7 mg/dL (0.2-1.0); Total Protein 7.1 g/dL (6.4-8.2)
[2022-01-22] MEDS ORDERED: ONDANSETRON HCL 4 MG/2 ML VIAL IV ONE (13:30)
[2022-01-22] MEDS ORDERED: CLINDAMYCIN 900MG IV 50 ML IV ONE (13:30)
[2022-01-22] MEDS ORDERED: MORPHINE SULFATE 4 MG/ML SYR/VIAL IV ONE (13:30)
[2022-01-22] MEDS ORDERED: SODIUM CHLORIDE 0.9% 1,000 ML IV ONE ×2 (14:00→15:15)
[2022-01-22 14:33] LABS: Urine Bacteria FEW /hpf (None Seen); Urine Blood Negative /uL (Negative); Urine Specific Gravity 1.035 (1.001-1.035); Urine WBC 1 /hpf (0 - 3)
[2022-01-22] MEDS ORDERED: POTASSIUM EFFERVESENT TAB 25 MEQ PO ONE (14:45)
[2022-01-22] MEDS ORDERED: LABETALOL HCL 5 MG/ML 4ML SYRINGE IV PRN (15:15)
[2022-01-22] MEDS ORDERED: ACETAMINOPHEN 500 MG TAB PO PRN (15:15)
[2022-01-22] MEDS ORDERED: DEXTROSE (50%) 50ML SYRG IV PRN (15:15)
[2022-01-22] MEDS ORDERED: MORPHINE SULFATE INJECTION 2 MG/ML SYRG IV PRN (15:15)
[2022-01-22] MEDS ORDERED: DOCUSATE CALCIUM 240 MG CAP PO PRN (15:15)
[2022-01-22] MEDS ORDERED: IOHEXOL 300 MG/ML 100ML BOTTLE IJ ONE (15:18)
[2022-01-22] MEDS ORDERED: SODIUM CHLORIDE 0.9% 500 ML IV ONE (15:30)
[2022-01-22] MEDS: HYDROmorphone HCL 2 MG/ML VL IV PRN ×2 (15:58→20:14)
[2022-01-22 16:20] LABS: INR 0.99 (0.9-1.15); Partial Thromboplastin Time 27.4 sec (23.6-33.0)
[2022-01-22] MEDS: ACCU-CHEK COMFORT CURVE STRIP VI SCH ×2 (17:28→20:24)
[2022-01-22] MEDS: InsuLIN REG 1unit/0.01ml Soln (100units/ml) SC SCH ×2 (17:34→20:12)
[2022-01-22] MEDS ORDERED: MORPHINE SULFATE INJECTION 2 MG/ML SYRG IV ONE (18:30)
[2022-01-22 20:00] VITALS: BP 146/77
[2022-01-22 20:17] VITALS: BP 148/86
[2022-01-22 21:00] LABS: BUN/Creatinine Ratio 6.1; Calcium 7.9 mg/dL (8.5-10.1); Potassium 3.2 mmol/L (3.5-5.1)
[2022-01-22 21:32] VITALS: BP 151/77
[2022-01-22] MEDS: CLINDAMYCIN 600MG IV 50 ML IV SCH (22:02)
[2022-01-23] MEDS: InsuLIN REG 1unit/0.01ml Soln (100units/ml) SC SCH ×4 (00:11→18:00)
[2022-01-23] MEDS: HYDROmorphone HCL 2 MG/ML VL IV PRN ×6 (00:14→22:52)
[2022-01-23] MEDS: ACCU-CHEK COMFORT CURVE STRIP VI SCH ×4 (00:19→18:00)
[2022-01-23 04:33] VITALS: BP 148/85
[2022-01-23] MEDS: CLINDAMYCIN 600MG IV 50 ML IV SCH ×3 (06:12→21:29)
[2022-01-23 06:13] LABS: Basophils # (auto) 0.1 10 ^3/uL (0-0.2); Basophils % (auto) 0.7 % (0.0-2.0); Eosinophils # (auto) 0.5 10 ^3/uL (0-0.8); Eosinophils % (auto) 5.5 % (0.0-7.0); Hematocrit 41.3 % (41.0-53.0); Hemoglobin 14.5 g/dL (13.5-17.5); INR 1.06 (0.9-1.15); Lymphocytes # (auto) 1.6 10 ^3/uL (0.4-5.4); Lymphocytes % (auto) 17.1 % (10.0-50.0); Mean Corpuscular Hemoglobin 28.4 pg (28.0-32.0); Mean Corpuscular Volume 81.1 fL (80.0-100.0); Monocytes # (auto) 0.9 10 ^3/uL (0-1.3); Monocytes % (auto) 9.5 % (0.0-12.0); Neutrophils # (auto) 6.4 10 ^3/uL (1.6-8.6); Neutrophils % (auto) 67.2 % (37.0-80.0); Nucleated Red Blood Cells % 0.1 %; Red Cell Distribution Width 13.5 % (11.8-14.3); White Blood Cell 9.5 10^3/uL (4.4-10.8)
[2022-01-23 06:35] LABS: Albumin 2.7 g/dL (3.4-5.0); Calcium 8.3 mg/dL (8.5-10.1); Potassium 3.2 mmol/L (3.5-5.1)
[2022-01-23 06:39] LABS: BUN/Creatinine Ratio 5.9; Bilirubin, Total 0.8 mg/dL (0.2-1.0); Total Protein 6.1 g/dL (6.4-8.2)
[2022-01-23] MEDS: CITALOPRAM HYDROBR 20 MG TAB PO SCH (08:56)
[2022-01-23] MEDS: PANTOPRAZOLE 40 MG TAB PO SCH (08:56)
[2022-01-23 09:00] VITALS: BP 149/98
[2022-01-23] MEDS ORDERED: POTASSIUM CHL 20 Meq TABLET PO ONE (09:15)
[2022-01-23] MEDS ORDERED: DEXTROSE (50%) 50ML SYRG IV PRN (09:15)
[2022-01-23] MEDS ORDERED: HYDROmorphone HCL 2 MG/ML VL IV PRN (09:15)
[2022-01-23] MEDS ORDERED: ENOXAPARIN SOD 40 MG/0.4 ML SYRINGE SC SCH (10:00)
[2022-01-23] MEDS: LACTULOSE 20Gm/30ML SOLN PO SCH (10:15)
[2022-01-23] MEDS: HYDROcodone-ACET 10/325MG TAB PO PRN ×2 (12:59→20:44)
[2022-01-23 13:00] VITALS: BP 149/88
[2022-01-23 17:00] VITALS: BP 135/71
[2022-01-23 20:00] VITALS: BP 142/73
[2022-01-23] MEDS: ENOXAPARIN SOD 40 MG/0.4 ML SYRINGE SC SCH (21:29)
[2022-01-23 22:00] VITALS: BP 142/73
[2022-01-24] MEDS: ACCU-CHEK COMFORT CURVE STRIP VI SCH ×5 (00:15→23:50)
[2022-01-24] MEDS: InsuLIN REG 1unit/0.01ml Soln (100units/ml) SC SCH ×5 (00:16→23:52)
[2022-01-24] MEDS: HYDROcodone-ACET 10/325MG TAB PO PRN ×2 (00:23→10:07)
[2022-01-24] MEDS: HYDROmorphone HCL 2 MG/ML VL IV PRN ×6 (03:11→23:46)
[2022-01-24 04:58] VITALS: BP 136/73
[2022-01-24] MEDS: CLINDAMYCIN 600MG IV 50 ML IV SCH ×3 (06:13→21:22)
[2022-01-24] MEDS: ONDANSETRON HCL 4 MG/2 ML VIAL IV PRN (07:19)
[2022-01-24 09:00] VITALS: BP 151/79
[2022-01-24] MEDS: PANTOPRAZOLE 40 MG TAB PO SCH (10:07)
[2022-01-24] MEDS: ENOXAPARIN SOD 40 MG/0.4 ML SYRINGE SC SCH ×2 (10:07→21:19)
[2022-01-24] MEDS: LACTULOSE 20Gm/30ML SOLN PO SCH (10:07)
[2022-01-24] MEDS: CITALOPRAM HYDROBR 20 MG TAB PO SCH (10:07)
[2022-01-24 13:00] VITALS: BP 129/69
[2022-01-24 16:29] VITALS: BP 144/74
[2022-01-24 20:00] VITALS: BP 151/85
[2022-01-24 22:00] VITALS: BP 151/85
[2022-01-25] MEDS: HYDROmorphone HCL 2 MG/ML VL IV PRN ×6 (02:50→22:15)
[2022-01-25 05:00] VITALS: BP 147/84
[2022-01-25] MEDS: CLINDAMYCIN 600MG IV 50 ML IV SCH (05:28)
[2022-01-25] MEDS: ACCU-CHEK COMFORT CURVE STRIP VI SCH ×3 (05:30→18:00)
[2022-01-25] MEDS: InsuLIN REG 1unit/0.01ml Soln (100units/ml) SC SCH ×3 (05:40→18:00)
[2022-01-25 08:00] VITALS: BP 143/69
[2022-01-25] MEDS: LACTULOSE 20Gm/30ML SOLN PO SCH (09:24)
[2022-01-25] MEDS: CITALOPRAM HYDROBR 20 MG TAB PO SCH (09:24)
[2022-01-25] MEDS: PANTOPRAZOLE 40 MG TAB PO SCH (09:25)
[2022-01-25] MEDS: ENOXAPARIN SOD 40 MG/0.4 ML SYRINGE SC SCH ×2 (09:25→22:16)
[2022-01-25] MEDS: ONDANSETRON HCL 4 MG/2 ML VIAL IV PRN (09:29)
[2022-01-25] MEDS ORDERED: cloNIDine HCL 0.1 MG TAB PO PRN (10:00)
[2022-01-25 12:00] VITALS: BP 137/79
[2022-01-25] MEDS: METOPROLOL TARTRATE 50 MG TAB PO SCH ×2 (12:45→22:16)
[2022-01-25] MEDS: amLODIPine BESYLATE 5 MG TAB PO SCH (12:45)
[2022-01-25] MEDS: GABAPENTIN 300 MG CAP PO SCH ×2 (14:05→22:16)
[2022-01-25 16:00] VITALS: BP 139/77
[2022-01-25] MEDS ORDERED: PENICILLOYL POLYLYSINE 0.25 ML INJ SCRATCHTES ONE (16:15)
[2022-01-25] MEDS ORDERED: HISTAMINE PHOS 1mg/ml 5ML SCRATCH TEST SCRATCHTES ONE (16:15)
[2022-01-25] MEDS ORDERED: PENICILLIN G POTASSIUM 1,000 UNITS in SODIUM CHL 0.9% 0.1 ML SCRATCHTES ONE (16:15)
[2022-01-25] MEDS ORDERED: PENICILLIN G POTASSIUM 1,000 UNITS in SODIUM CHL 0.9% 0.1 ML ID ONE ×4 (16:15)
[2022-01-25] MEDS ORDERED: SODIUM CHLOR 0.9% PF (SALINE LOCK) 10ML VIAL/SYR SCRATCHTES ONE (16:15)
[2022-01-25] MEDS ORDERED: SODIUM CHLOR 0.9% PF (SALINE LOCK) 10ML VIAL/SYR ID ONE (16:15)
[2022-01-25] MEDS ORDERED: PENICILLOYL POLYLYSINE 0.25 ML INJ ID ONE ×2 (16:15)
[2022-01-25 20:00] VITALS: BP 144/79
[2022-01-25 22:00] VITALS: BP 144/79
[2022-01-25] MEDS ORDERED: ATORVASTATIN 20 MG TAB PO SCH (22:00)
[2022-01-25] MEDS ORDERED: INSULIN LANTUS (GLARGINE) 1 /0.01ml (100units/ml) SC SCH (22:00)
[2022-01-26] MEDS: ACCU-CHEK COMFORT CURVE STRIP VI SCH ×3 (00:35→13:07)
[2022-01-26] MEDS: InsuLIN REG 1unit/0.01ml Soln (100units/ml) SC SCH ×3 (00:39→13:06)
[2022-01-26] MEDS: HYDROmorphone HCL 2 MG/ML VL IV PRN ×5 (03:19→16:28)
[2022-01-26 05:00] VITALS: BP 118/62
[2022-01-26] MEDS: GABAPENTIN 300 MG CAP PO SCH (05:07)
[2022-01-26 08:40] VITALS: BP 131/70
[2022-01-26] MEDS ORDERED: AMOXICILLIN/CLAVUL 875 MG TAB PO SCH (10:00)
[2022-01-26] MEDS: LACTULOSE 20Gm/30ML SOLN PO SCH (10:00)
[2022-01-26] MEDS: CITALOPRAM HYDROBR 20 MG TAB PO SCH (10:13)
[2022-01-26] MEDS: METOPROLOL TARTRATE 50 MG TAB PO SCH (10:13)
[2022-01-26] MEDS: PANTOPRAZOLE 40 MG TAB PO SCH (10:14)
[2022-01-26] MEDS: ENOXAPARIN SOD 40 MG/0.4 ML SYRINGE SC SCH (10:14)
[2022-01-26] MEDS: amLODIPine BESYLATE 5 MG TAB PO SCH (10:14)
[2022-01-26 14:15] VITALS: BP 135/76
[2022-01-26 17:00] VITALS: BP 151/92
[2022-01-26 17:14] VITALS: BP 151/92
[2022-01-26] MEDS ORDERED: Juven Fruit Punch Powder PACKET 28.8gm PO SCH (18:00)
== END 2022-01-26 18:10 | disposition home health service (06) | DRG 920 ==
LOC: EDUNIT# 12:07 → ER 12:07 → TELE 15:20 → TELE-CENTR 18:32 → CENTRAL 01-25 09:16
PROVIDERS: ADMIT Family Medicine; ATTEND Internal Medicine
DX: T81.31XA Disruption of external operation (surgical) wound, not elsewhere classified, initial encounter (principal); L03.311 Cellulitis of abdominal wall; E44.1 Mild protein-calorie malnutrition; K63.2 Fistula of intestine; F11.20 Opioid dependence, uncomplicated; L02.211 Cutaneous abscess of abdominal wall; E11.65 Type 2 diabetes mellitus with hyperglycemia; E86.0 Dehydration; E87.6 Hypokalemia; E66.01 Morbid (severe) obesity due to excess calories; I10 Essential (primary) hypertension; E78.5 Hyperlipidemia, unspecified; S31.109A Unspecified open wound of abdominal wall, unspecified quadrant without penetration into peritoneal cavity, initial encounter; Y83.8 Other surgical procedures as the cause of abnormal reaction of the patient, or of later complication, without mention of misadventure at the time of the procedure; B95.2 Enterococcus as the cause of diseases classified elsewhere; G89.29 Other chronic pain; X58.XXXA Exposure to other specified factors, initial encounter; F41.9 Anxiety disorder, unspecified; Z20.822 Contact with and (suspected) exposure to COVID-19; Z80.3 Family history of malignant neoplasm of breast; Z88.0 Allergy status to penicillin; Z88.8 Allergy status to other drugs, medicaments and biological substances; Z90.49 Acquired absence of other specified parts of digestive tract; Z68.37 Body mass index [BMI] 37.0-37.9, adult; Y92.89 Other specified places as the place of occurrence of the external cause; Y93.89 Activity, other specified; Y99.8 Other external cause status; Z79.84 Long term (current) use of oral hypoglycemic drugs
CPT/HCPCS: 36415; 71046; 74177; 80048; 80053; 81001; 82962; 83036; 83605; 83690; 83735; 83880; 84443; 85025; 85610; 85730; 87040; 87077; 87081; 87186; 87205; 93005; 96361; 96365; 96375; G0378; J1815; J2405; J3490

== ENCOUNTER 2022-03-15 11:13 | Inpatient (IN) | payer MEDICARE ==
[~2022-03-15] VITALS: Ht 180.3 cm; Wt 128.7 kg
[2022-03-15 13:42] LABS: Basophils # (auto) 0.1 10 ^3/uL (0-0.2); Eosinophils # (auto) 0.1 10 ^3/uL (0-0.8); Eosinophils % (auto) 0.7 % (0.0-7.0); Hemoglobin 17.1 g/dL (13.5-17.5); Mean Corpuscular Hemoglobin 27.6 pg (28.0-32.0); Mean Corpuscular Hgb Conc. 33.6 g/dL (32.0-36.0); Monocytes # (auto) 0.9 10 ^3/uL (0-1.3); Monocytes % (auto) 7.2 % (0.0-12.0); Neutrophils # (auto) 10.1 10 ^3/uL (1.6-8.6); White Blood Cell 12.2 10^3/uL (4.4-10.8)
[2022-03-15 13:44] LABS: Basophils % (auto) 0.7 % (0.0-2.0); Hematocrit 50.9 % (41.0-53.0); Lymphocytes % (auto) 8.6 % (10.0-50.0); Mean Corpuscular Volume 82.2 fL (80.0-100.0); Neutrophils % (auto) 82.8 % (37.0-80.0); Nucleated Red Blood Cells % 0.8 %; Red Cell Distribution Width 14.2 % (11.8-14.3)
[2022-03-15 14:09] LABS: Albumin 3.9 g/dL (3.4-5.0); Calcium 9.1 mg/dL (8.5-10.1); Potassium 3.6 mmol/L (3.5-5.1)
[2022-03-15 14:12] LABS: BUN/Creatinine Ratio 12.2; Bilirubin, Total 0.6 mg/dL (0.2-1.0); Total Protein 7.9 g/dL (6.4-8.2)
[2022-03-15] MEDS ORDERED: ACETAMINOPHEN 325 MG TAB PO PRN (23:00)
[2022-03-15] MEDS ORDERED: cloNIDine HCL 0.1 MG TAB PO PRN (23:00)
[2022-03-15] MEDS ORDERED: CLINDAMYCIN 600MG IV 50 ML IV ONE (23:00)
[2022-03-15] MEDS ORDERED: DEXTROSE (50%) 50ML SYRG IV PRN (23:00)
[2022-03-15] MEDS ORDERED: HYDROcodone-ACET 5/325MG TAB PO PRN (23:00)
[2022-03-15] MEDS: ACCU-CHEK COMFORT CURVE STRIP VI SCH (23:40)
[2022-03-16] MEDS ORDERED: CLINDAMYCIN 600MG IV 50 ML IV ONE (00:12)
[2022-03-16] MEDS ORDERED: MORPHINE SULFATE INJ 2 MG/ml SYRG ONE (00:12)
[2022-03-16] MEDS ORDERED: ONDANSETRON HCL 4 MG/2 ML VIAL ONE (00:12)
[2022-03-16] MEDS: ONDANSETRON HCL 4 MG/2 ML VIAL IV PRN ×2 (00:23→09:31)
[2022-03-16] MEDS: MORPHINE SULFATE INJ 2 MG/ml SYRG IV PRN ×3 (00:23→17:22)
[2022-03-16] MEDS: ACCU-CHEK COMFORT CURVE STRIP VI SCH ×5 (04:39→20:45)
[2022-03-16] MEDS: InsuLIN REG 1unit/0.01ml Soln (100units/ml) SC SCH ×6 (04:40→20:48)
[2022-03-16] MEDS ORDERED: CLINDAMYCIN 600MG IV 50 ML IV SCH (06:00)
[2022-03-16] MEDS: GABAPENTIN 100 MG CAP PO SCH ×3 (07:00→21:39)
[2022-03-16 09:00] VITALS: BP 123/78
[2022-03-16] MEDS: CLINDAMYCIN 600MG IV 50 ML IV SCH ×2 (09:27→18:00)
[2022-03-16 09:28] LABS: Basophils # (auto) 0.1 10 ^3/uL (0-0.2); Basophils % (auto) 0.6 % (0.0-2.0); Eosinophils # (auto) 0.3 10 ^3/uL (0-0.8); Eosinophils % (auto) 2.3 % (0.0-7.0); Hematocrit 44.7 % (41.0-53.0); Hemoglobin 15.3 g/dL (13.5-17.5); Lymphocytes # (auto) 1.7 10 ^3/uL (0.4-5.4); Lymphocytes % (auto) 15.8 % (10.0-50.0); Mean Corpuscular Hemoglobin 28.1 pg (28.0-32.0); Mean Corpuscular Hgb Conc. 34.1 g/dL (32.0-36.0); Mean Corpuscular Volume 82.3 fL (80.0-100.0); Monocytes # (auto) 0.9 10 ^3/uL (0-1.3); Neutrophils # (auto) 8.1 10 ^3/uL (1.6-8.6); Neutrophils % (auto) 73.3 % (37.0-80.0); Nucleated Red Blood Cells % 0.2 %; Red Blood Cells 5.42 10^6/uL (4.5-5.90); Red Cell Distribution Width 14.8 % (11.8-14.3)
[2022-03-16] MEDS: ENOXAPARIN SOD 40 MG/0.4 ML SYRINGE SC SCH (09:37)
[2022-03-16] MEDS: HCTZ 25 MG TAB PO SCH (09:38)
[2022-03-16] MEDS: METOPROLOL TARTRATE 50 MG TAB PO SCH ×2 (09:38→21:39)
[2022-03-16] MEDS: amLODIPine BESYLATE 5 MG TAB PO SCH (09:39)
[2022-03-16] MEDS: LISINOPRIL 20 MG TAB PO SCH (09:39)
[2022-03-16 09:41] LABS: Potassium 3.6 mmol/L (3.5-5.1)
[2022-03-16 09:50] LABS: Albumin 3.1 g/dL (3.4-5.0); BUN/Creatinine Ratio 14.9; Bilirubin, Total 0.9 mg/dL (0.2-1.0); Total Protein 6.4 g/dL (6.4-8.2)
[2022-03-16] MEDS ORDERED: PANTOPRAZOLE 40 MG TAB PO SCH (10:00)
[2022-03-16 13:00] VITALS: BP 104/54
[2022-03-16 17:00] VITALS: BP 98/55
[2022-03-16 22:00] VITALS: BP 99/56
[2022-03-16] MEDS: HYDROmorphone HCL 2 MG/ML VL/or syr IV PRN (22:35)
[2022-03-17] MEDS: InsuLIN REG 1unit/0.01ml Soln (100units/ml) SC SCH ×5 (00:43→22:25)
[2022-03-17] MEDS: ACCU-CHEK COMFORT CURVE STRIP VI SCH ×6 (00:51→22:02)
[2022-03-17] MEDS: MORPHINE SULFATE INJ 2 MG/ml SYRG IV PRN ×5 (00:52→22:13)
[2022-03-17] MEDS: CLINDAMYCIN 600MG IV 50 ML IV SCH ×2 (02:44→10:00)
[2022-03-17 05:00] VITALS: BP 94/60
[2022-03-17 05:28] LABS: Basophils # (auto) 0.1 10 ^3/uL (0-0.2); Basophils % (auto) 0.7 % (0.0-2.0); Eosinophils # (auto) 0.4 10 ^3/uL (0-0.8); Eosinophils % (auto) 4.9 % (0.0-7.0); Hemoglobin 14.6 g/dL (13.5-17.5); Lymphocytes # (auto) 1.9 10 ^3/uL (0.4-5.4); Lymphocytes % (auto) 23.2 % (10.0-50.0); Mean Corpuscular Hgb Conc. 33.9 g/dL (32.0-36.0); Mean Corpuscular Volume 82.6 fL (80.0-100.0); Monocytes # (auto) 0.8 10 ^3/uL (0-1.3); Monocytes % (auto) 9.6 % (0.0-12.0); Neutrophils # (auto) 5.1 10 ^3/uL (1.6-8.6); Neutrophils % (auto) 61.6 % (37.0-80.0); Nucleated Red Blood Cells % 0.1 %; Red Blood Cells 5.21 10^6/uL (4.5-5.90); Red Cell Distribution Width 14.7 % (11.8-14.3); White Blood Cell 8.2 10^3/uL (4.4-10.8)
[2022-03-17 05:37] LABS: Potassium 3.6 mmol/L (3.5-5.1)
[2022-03-17 05:43] LABS: BUN/Creatinine Ratio 22.8
[2022-03-17] MEDS: GABAPENTIN 100 MG CAP PO SCH (06:34)
[2022-03-17] MEDS: HYDROmorphone HCL 2 MG/ML VL/or syr IV PRN ×3 (06:53→23:40)
[2022-03-17 08:00] VITALS: BP 108/71
[2022-03-17] MEDS: METOPROLOL TARTRATE 50 MG TAB PO SCH ×2 (10:21→22:00)
[2022-03-17] MEDS: amLODIPine BESYLATE 5 MG TAB PO SCH (10:22)
[2022-03-17] MEDS: HCTZ 25 MG TAB PO SCH (10:22)
[2022-03-17] MEDS: ENOXAPARIN SOD 40 MG/0.4 ML SYRINGE SC SCH (10:24)
[2022-03-17] MEDS: LISINOPRIL 20 MG TAB PO SCH (10:24)
[2022-03-17 12:00] VITALS: BP 113/68
[2022-03-17] MEDS ORDERED: DEXTROSE (50%) 50ML SYRG IV PRN (13:45)
[2022-03-17] MEDS ORDERED: GABAPENTIN 300 MG CAP PO ONE (14:45)
[2022-03-17 16:00] VITALS: BP 110/63
[2022-03-17 21:33] VITALS: BP 94/55
[2022-03-17] MEDS: GABAPENTIN 300 MG CAP PO SCH (22:02)
[2022-03-17] MEDS: CLINDAMYCIN HCL 150 MG CAP PO SCH (22:02)
[2022-03-18] MEDS: MORPHINE SULFATE INJ 2 MG/ml SYRG IV PRN ×5 (02:05→21:08)
[2022-03-18 04:31] VITALS: BP 93/50
[2022-03-18] MEDS: CLINDAMYCIN HCL 150 MG CAP PO SCH ×3 (06:11→22:06)
[2022-03-18] MEDS: GABAPENTIN 300 MG CAP PO SCH ×3 (06:11→22:06)
[2022-03-18] MEDS: ACCU-CHEK COMFORT CURVE STRIP VI SCH ×4 (06:12→22:08)
[2022-03-18] MEDS: InsuLIN REG 1unit/0.01ml Soln (100units/ml) SC SCH ×4 (06:24→22:03)
[2022-03-18 06:41] LABS: Basophils # (auto) 0.1 10 ^3/uL (0-0.2); Basophils % (auto) 0.8 % (0.0-2.0); Eosinophils # (auto) 0.3 10 ^3/uL (0-0.8); Eosinophils % (auto) 4.8 % (0.0-7.0); Hematocrit 44.4 % (41.0-53.0); Hemoglobin 15.2 g/dL (13.5-17.5); Lymphocytes # (auto) 1.7 10 ^3/uL (0.4-5.4); Lymphocytes % (auto) 24.2 % (10.0-50.0); Mean Corpuscular Hemoglobin 28.3 pg (28.0-32.0); Mean Corpuscular Hgb Conc. 34.2 g/dL (32.0-36.0); Mean Corpuscular Volume 82.7 fL (80.0-100.0); Monocytes # (auto) 0.6 10 ^3/uL (0-1.3); Neutrophils # (auto) 4.4 10 ^3/uL (1.6-8.6); Neutrophils % (auto) 62.2 % (37.0-80.0); Nucleated Red Blood Cells % 0.1 %; Red Blood Cells 5.37 10^6/uL (4.5-5.90); Red Cell Distribution Width 14.5 % (11.8-14.3); White Blood Cell 7.1 10^3/uL (4.4-10.8)
[2022-03-18 06:57] LABS: BUN/Creatinine Ratio 21.3; Calcium 8.6 mg/dL (8.5-10.1); Potassium 3.5 mmol/L (3.5-5.1)
[2022-03-18] MEDS: HYDROmorphone HCL 2 MG/ML VL/or syr IV PRN ×2 (08:43→17:49)
[2022-03-18] MEDS: ENOXAPARIN SOD 40 MG/0.4 ML SYRINGE SC SCH (08:45)
[2022-03-18] MEDS: HCTZ 25 MG TAB PO SCH (08:46)
[2022-03-18] MEDS: amLODIPine BESYLATE 5 MG TAB PO SCH (08:47)
[2022-03-18] MEDS: METOPROLOL TARTRATE 50 MG TAB PO SCH ×2 (08:47→22:06)
[2022-03-18] MEDS: LISINOPRIL 20 MG TAB PO SCH (08:48)
[2022-03-18 09:00] VITALS: BP 116/67
[2022-03-18 12:56] VITALS: BP 144/79
[2022-03-18 16:46] VITALS: BP 121/67
[2022-03-18 22:00] VITALS: BP 131/70
[2022-03-18] MEDS: TEMAZEPAM 15 MG CAP PO PRN (22:06)
[2022-03-19] MEDS: HYDROmorphone HCL 2 MG/ML VL/or syr IV PRN ×3 (02:08→19:30)
[2022-03-19] MEDS: MORPHINE SULFATE INJ 2 MG/ml SYRG IV PRN ×4 (04:26→23:11)
[2022-03-19 05:00] VITALS: BP 109/71
[2022-03-19 05:33] LABS: Basophils # (auto) 0.1 10 ^3/uL (0-0.2); Basophils % (auto) 0.6 % (0.0-2.0); Eosinophils # (auto) 0.5 10 ^3/uL (0-0.8); Eosinophils % (auto) 5.5 % (0.0-7.0); Hematocrit 44.5 % (41.0-53.0); Hemoglobin 15.3 g/dL (13.5-17.5); Lymphocytes # (auto) 1.7 10 ^3/uL (0.4-5.4); Lymphocytes % (auto) 19.8 % (10.0-50.0); Mean Corpuscular Hemoglobin 28.2 pg (28.0-32.0); Mean Corpuscular Hgb Conc. 34.5 g/dL (32.0-36.0); Mean Corpuscular Volume 81.8 fL (80.0-100.0); Monocytes # (auto) 0.6 10 ^3/uL (0-1.3); Monocytes % (auto) 7.4 % (0.0-12.0); Neutrophils # (auto) 5.7 10 ^3/uL (1.6-8.6); Neutrophils % (auto) 66.7 % (37.0-80.0); Nucleated Red Blood Cells % 0.1 %; Red Blood Cells 5.44 10^6/uL (4.5-5.90); Red Cell Distribution Width 13.9 % (11.8-14.3); White Blood Cell 8.6 10^3/uL (4.4-10.8)
[2022-03-19] MEDS: GABAPENTIN 300 MG CAP PO SCH ×3 (05:45→21:48)
[2022-03-19] MEDS: CLINDAMYCIN HCL 150 MG CAP PO SCH ×3 (05:45→21:48)
[2022-03-19] MEDS: InsuLIN REG 1unit/0.01ml Soln (100units/ml) SC SCH ×4 (05:50→21:34)
[2022-03-19] MEDS: ACCU-CHEK COMFORT CURVE STRIP VI SCH ×4 (05:52→21:49)
[2022-03-19 06:07] LABS: BUN/Creatinine Ratio 21.7; Calcium 8.8 mg/dL (8.5-10.1); Potassium 3.4 mmol/L (3.5-5.1)
[2022-03-19] MEDS: LISINOPRIL 20 MG TAB PO SCH (08:58)
[2022-03-19] MEDS: METOPROLOL TARTRATE 50 MG TAB PO SCH ×2 (08:58→21:48)
[2022-03-19] MEDS: HCTZ 25 MG TAB PO SCH (08:58)
[2022-03-19] MEDS: ENOXAPARIN SOD 40 MG/0.4 ML SYRINGE SC SCH (08:59)
[2022-03-19] MEDS: amLODIPine BESYLATE 5 MG TAB PO SCH (08:59)
[2022-03-19 09:00] VITALS: BP 98/60
[2022-03-19 13:00] VITALS: BP 139/82
[2022-03-19 16:52] VITALS: BP 116/68
[2022-03-19] MEDS: Juven Fruit Punch Powder PACKET 28.8gm PO SCH (18:00)
[2022-03-19] MEDS: TEMAZEPAM 15 MG CAP PO PRN (21:42)
[2022-03-19 22:00] VITALS: BP 132/76
[2022-03-20] MEDS: HYDROmorphone HCL 2 MG/ML VL/or syr IV PRN ×3 (04:27→20:39)
[2022-03-20 05:00] VITALS: BP 116/62
[2022-03-20] MEDS: GABAPENTIN 300 MG CAP PO SCH ×3 (05:54→21:39)
[2022-03-20] MEDS: CLINDAMYCIN HCL 150 MG CAP PO SCH ×3 (05:54→21:38)
[2022-03-20] MEDS: InsuLIN REG 1unit/0.01ml Soln (100units/ml) SC SCH ×4 (06:05→21:44)
[2022-03-20] MEDS: ACCU-CHEK COMFORT CURVE STRIP VI SCH ×4 (06:06→21:47)
[2022-03-20] MEDS: Juven Fruit Punch Powder PACKET 28.8gm PO SCH ×2 (08:00→16:46)
[2022-03-20] MEDS: MORPHINE SULFATE INJ 2 MG/ml SYRG IV PRN (08:55)
[2022-03-20 09:00] VITALS: BP 124/79
[2022-03-20] MEDS: METOPROLOL TARTRATE 50 MG TAB PO SCH ×2 (09:00→21:39)
[2022-03-20] MEDS: amLODIPine BESYLATE 5 MG TAB PO SCH (09:00)
[2022-03-20] MEDS: LISINOPRIL 20 MG TAB PO SCH (09:01)
[2022-03-20] MEDS: HCTZ 25 MG TAB PO SCH (09:01)
[2022-03-20] MEDS: ENOXAPARIN SOD 40 MG/0.4 ML SYRINGE SC SCH (09:02)
[2022-03-20] MEDS ORDERED: CLIN300C8 PO (10:00)
[2022-03-20] MEDS ORDERED: HYDR-4902 PO (10:00)
[2022-03-20 12:37] VITALS: BP 122/70
[2022-03-20 17:00] VITALS: BP 129/75
[2022-03-20 22:00] VITALS: BP 138/78
[2022-03-21] MEDS: MORPHINE SULFATE INJ 2 MG/ml SYRG IV PRN ×2 (00:49→10:11)
[2022-03-21] MEDS: HYDROmorphone HCL 2 MG/ML VL/or syr IV PRN ×2 (04:48→14:06)
[2022-03-21 05:00] VITALS: BP 106/56
[2022-03-21] MEDS: ACCU-CHEK COMFORT CURVE STRIP VI SCH ×2 (05:42→12:34)
[2022-03-21] MEDS ORDERED: CLINDAMYCIN HCL 150 MG CAP ONE ×2 (05:56→05:58)
[2022-03-21] MEDS: InsuLIN REG 1unit/0.01ml Soln (100units/ml) SC SCH ×2 (06:11→12:34)
[2022-03-21] MEDS: GABAPENTIN 300 MG CAP PO SCH ×2 (06:13→14:05)
[2022-03-21] MEDS: CLINDAMYCIN HCL 150 MG CAP PO SCH ×2 (06:14→14:00)
[2022-03-21 09:00] VITALS: BP 102/66
[2022-03-21] MEDS: ENOXAPARIN SOD 40 MG/0.4 ML SYRINGE SC SCH (10:13)
[2022-03-21] MEDS: LISINOPRIL 20 MG TAB PO SCH (10:14)
[2022-03-21] MEDS: METOPROLOL TARTRATE 50 MG TAB PO SCH (10:14)
[2022-03-21] MEDS: HCTZ 25 MG TAB PO SCH (10:14)
[2022-03-21] MEDS: amLODIPine BESYLATE 5 MG TAB PO SCH (10:14)
[2022-03-21] MEDS: Juven Fruit Punch Powder PACKET 28.8gm PO SCH (10:17)
[2022-03-21 14:39] VITALS: BP 120/79
== END 2022-03-21 16:34 | disposition home health service (06) | DRG 603 ==
LOC: ER 11:13 → EDBD 11:13 → OVERFLOW 22:57 → WEST WING 03-16 05:40
PROVIDERS: ADMIT Nurse Practitioner; ATTEND Internal Medicine Pulmonary Disease
DX: L03.311 Cellulitis of abdominal wall (principal); F11.20 Opioid dependence, uncomplicated; Z68.41 Body mass index [BMI] 40.0-44.9, adult; S31.109A Unspecified open wound of abdominal wall, unspecified quadrant without penetration into peritoneal cavity, initial encounter; E11.65 Type 2 diabetes mellitus with hyperglycemia; E66.01 Morbid (severe) obesity due to excess calories; E78.5 Hyperlipidemia, unspecified; X58.XXXA Exposure to other specified factors, initial encounter; Z20.822 Contact with and (suspected) exposure to COVID-19; G89.4 Chronic pain syndrome; I10 Essential (primary) hypertension; Z80.3 Family history of malignant neoplasm of breast; Z88.0 Allergy status to penicillin; Z88.8 Allergy status to other drugs, medicaments and biological substances; Y93.89 Activity, other specified; Y92.89 Other specified places as the place of occurrence of the external cause; Y99.8 Other external cause status; Z90.49 Acquired absence of other specified parts of digestive tract; Z79.4 Long term (current) use of insulin
CPT/HCPCS: 36415; 74176; 80048; 80053; 82150; 82962; 83605; 83690; 84484; 85025; 87040; 87077; 87186; 87205; 93005; 96365; 96375; G0378; J1815; J2405; J3490

== ENCOUNTER 2022-11-29 18:29 | Inpatient (IN) | payer MEDICARE, OTHER ==
[~2022-11-29] VITALS: Ht 180.3 cm; Wt 130.3 kg
[~2022-11-29 18:29] MED LIST changes: +CLIN300C8 PO; +HYDR-4902 PO
[2022-11-29 19:14] LABS: Albumin 3.3 g/dL (3.4-5.0); Calcium 8.7 mg/dL (8.5-10.1); Potassium 4.3 mmol/L (3.5-5.1)
[2022-11-29 19:24] LABS: Bilirubin, Total 0.6 mg/dL (0.2-1.0); Total Protein 6.3 g/dL (6.4-8.2)
[2022-11-29 19:42] LABS: Basophils # (auto) 0.1 10 ^3/uL (0-0.2); Basophils % (auto) 0.6 % (0.0-2.0); Eosinophils # (auto) 0.2 10 ^3/uL (0-0.8); Eosinophils % (auto) 2.4 % (0.0-7.0); Hematocrit 46.9 % (41.0-53.0); Hemoglobin 15.7 g/dL (13.5-17.5); Lymphocytes # (auto) 1.4 10 ^3/uL (0.4-5.4); Lymphocytes % (auto) 17.9 % (10.0-50.0); Mean Corpuscular Hemoglobin 27.8 pg (28.0-32.0); Mean Corpuscular Hgb Conc. 33.4 g/dL (32.0-36.0); Mean Corpuscular Volume 83.1 fL (80.0-100.0); Monocytes # (auto) 0.7 10 ^3/uL (0-1.3); Monocytes % (auto) 8.2 % (0.0-12.0); Neutrophils # (auto) 5.7 10 ^3/uL (1.6-8.6); Neutrophils % (auto) 70.9 % (37.0-80.0); Nucleated Red Blood Cells % 0.6 %; Red Blood Cells 5.65 10^6/uL (4.5-5.90); Red Cell Distribution Width 13.9 % (11.8-14.3); White Blood Cell 8.1 10^3/uL (4.4-10.8)
[2022-11-29] MEDS ORDERED: IOHEXOL 350 MG/ML 100ML IJ ONE (23:24)
[2022-11-30] MEDS ORDERED: HYDROmorphone HCL 2 MG/ML VL/or syr IM ONE (03:00)
[2022-11-30] MEDS ORDERED: CLINDAMYCIN 600 MG/4 ML VL IV ONE (07:30)
[2022-11-30] MEDS ORDERED: TEMAZEPAM 15 MG CAP PO PRN (12:45)
[2022-11-30] MEDS ORDERED: LORazepam 0.5 MG TAB PO PRN (12:45)
[2022-11-30] MEDS ORDERED: HYDROcodone-ACET 5/325MG TAB PO PRN (12:45)
[2022-11-30] MEDS ORDERED: ACETAMINOPHEN 325 MG TAB PO PRN (12:45)
[2022-11-30] MEDS ORDERED: DOCUSATE SOD 100 MG CAP PO PRN (12:45)
[2022-11-30] MEDS: SODIUM CHLORIDE 0.9% 1,000 ML IV SCH (14:07)
[2022-11-30] MEDS: HYDROmorphone HCL 2 MG/ML VL/or syr IV PRN ×3 (14:08→23:51)
[2022-11-30] MEDS: ONDANSETRON HCL 4 MG/2 ML VIAL IV PRN ×2 (20:07→23:50)
[2022-12-01 03:17] LABS: Urine Bacteria NONE SEEN /hpf (None Seen); Urine Blood Negative /uL (Negative); Urine Mucus FEW (None Seen); Urine Specific Gravity 1.036 (1.001-1.035); Urine WBC 1 /hpf (0 - 3)
[2022-12-01 05:12] LABS: Basophils # (auto) 0.1 10 ^3/uL (0-0.2); Eosinophils # (auto) 0.3 10 ^3/uL (0-0.8); Eosinophils % (auto) 3.4 % (0.0-7.0); Hematocrit 48.8 % (41.0-53.0); Hemoglobin 16.1 g/dL (13.5-17.5); Lymphocytes # (auto) 0.9 10 ^3/uL (0.4-5.4); Lymphocytes % (auto) 11.1 % (10.0-50.0); Mean Corpuscular Hemoglobin 27.6 pg (28.0-32.0); Mean Corpuscular Volume 83.5 fL (80.0-100.0); Monocytes # (auto) 0.5 10 ^3/uL (0-1.3); Neutrophils # (auto) 6.5 10 ^3/uL (1.6-8.6); Neutrophils % (auto) 78.5 % (37.0-80.0); Nucleated Red Blood Cells % 0.1 %; Red Blood Cells 5.85 10^6/uL (4.5-5.90); Red Cell Distribution Width 14.2 % (11.8-14.3); White Blood Cell 8.2 10^3/uL (4.4-10.8)
[2022-12-01 05:18] LABS: BUN/Creatinine Ratio 19.1; Calcium 8.4 mg/dL (8.5-10.1)
[2022-12-01] MEDS: SODIUM CHLORIDE 0.9% 1,000 ML IV SCH ×2 (05:36→22:06)
[2022-12-01] MEDS: ONDANSETRON HCL 4 MG/2 ML VIAL IV PRN ×2 (08:20→13:01)
[2022-12-01] MEDS: HYDROmorphone HCL 2 MG/ML VL/or syr IV PRN ×4 (08:20→21:15)
[2022-12-01] MEDS ORDERED: DEXTROSE (50%) 50ML SYRG IV PRN (15:45)
[2022-12-01] MEDS ORDERED: GASTROGRAFIN 120 ML SOL ONE (15:55)
[2022-12-01] MEDS: ACCU-CHEK COMFORT CURVE STRIP VI SCH ×2 (16:42→23:16)
[2022-12-01] MEDS: InsuLIN REG 1unit/0.01ml Soln (100units/ml) SC SCH ×2 (16:53→23:15)
[2022-12-01 16:57] VITALS: BP 140/83
[2022-12-01 22:00] VITALS: BP 128/85
[2022-12-02] MEDS: HYDROmorphone HCL 2 MG/ML VL/or syr IV PRN ×6 (01:36→22:03)
[2022-12-02 05:00] VITALS: BP 127/82
[2022-12-02] MEDS: InsuLIN REG 1unit/0.01ml Soln (100units/ml) SC SCH ×4 (05:50→23:51)
[2022-12-02] MEDS: ACCU-CHEK COMFORT CURVE STRIP VI SCH ×4 (05:50→23:51)
[2022-12-02 06:47] LABS: BUN/Creatinine Ratio 15.1; Calcium 8.2 mg/dL (8.5-10.1); Potassium 3.7 mmol/L (3.5-5.1)
[2022-12-02 07:13] LABS: Basophils # (auto) 0 10 ^3/uL (0-0.2); Basophils % (auto) 0.4 % (0.0-2.0); Eosinophils # (auto) 0.2 10 ^3/uL (0-0.8); Eosinophils % (auto) 2.1 % (0.0-7.0); Hematocrit 48.2 % (41.0-53.0); Hemoglobin 16.1 g/dL (13.5-17.5); Lymphocytes # (auto) 1.3 10 ^3/uL (0.4-5.4); Lymphocytes % (auto) 15.1 % (10.0-50.0); Mean Corpuscular Hgb Conc. 33.5 g/dL (32.0-36.0); Mean Corpuscular Volume 83.6 fL (80.0-100.0); Monocytes # (auto) 0.6 10 ^3/uL (0-1.3); Monocytes % (auto) 7.1 % (0.0-12.0); Neutrophils # (auto) 6.3 10 ^3/uL (1.6-8.6); Neutrophils % (auto) 75.3 % (37.0-80.0); Nucleated Red Blood Cells % 0.2 %; Red Blood Cells 5.77 10^6/uL (4.5-5.90); Red Cell Distribution Width 14.1 % (11.8-14.3); White Blood Cell 8.4 10^3/uL (4.4-10.8)
[2022-12-02 09:00] VITALS: BP 115/75
[2022-12-02] MEDS ORDERED: hydrALAZINE HCL 20 MG/ML VL IV PRN (10:15)
[2022-12-02] MEDS ORDERED: GASTROGRAFIN 120 ML SOL ONE (12:07)
[2022-12-02 13:00] VITALS: BP 117/71
[2022-12-02 17:00] VITALS: BP 138/90
[2022-12-02] MEDS: SODIUM CHLORIDE 0.9% 1,000 ML IV SCH (18:04)
[2022-12-02 22:00] VITALS: BP 155/83
[2022-12-03] MEDS: HYDROmorphone HCL 2 MG/ML VL/or syr IV PRN ×7 (01:51→23:07)
[2022-12-03 05:01] VITALS: BP 126/80
[2022-12-03] MEDS: InsuLIN REG 1unit/0.01ml Soln (100units/ml) SC SCH ×4 (05:55→23:08)
[2022-12-03] MEDS: ACCU-CHEK COMFORT CURVE STRIP VI SCH ×4 (05:55→23:06)
[2022-12-03 06:23] LABS: Magnesium 2.5 mg/dL (1.6-2.6); Potassium 3.2 mmol/L (3.5-5.1)
[2022-12-03 06:25] LABS: BUN/Creatinine Ratio 23.2; Calcium 8.3 mg/dL (8.5-10.1)
[2022-12-03 09:00] VITALS: BP_SYST 108; BP_SYST 168; BP_DIAS 55; BP_DIAS 91
[2022-12-03] MEDS ORDERED: POTASSIUM CHL 20 Meq TABLET PO ONE (10:15)
[2022-12-03 13:00] VITALS: BP 135/76
[2022-12-03 17:21] VITALS: BP 151/88
[2022-12-03 22:00] VITALS: BP 137/90
[2022-12-04] VITALS (7 sets, daily range): BP systolic 119–143; BP diastolic 59–88
[2022-12-04] MEDS: HYDROmorphone HCL 2 MG/ML VL/or syr IV PRN ×7 (02:09→21:43)
[2022-12-04] MEDS: ACCU-CHEK COMFORT CURVE STRIP VI SCH ×4 (06:03→21:44)
[2022-12-04] MEDS: InsuLIN REG 1unit/0.01ml Soln (100units/ml) SC SCH ×3 (06:08→17:05)
[2022-12-04 07:18] LABS: Calcium 8.3 mg/dL (8.5-10.1); Magnesium 2.3 mg/dL (1.6-2.6); Potassium 3.3 mmol/L (3.5-5.1)
[2022-12-04] MEDS ORDERED: DEXTROSE (50%) 50ML SYRG IV PRN (08:15)
[2022-12-04] MEDS ORDERED: POTASSIUM CHL 20 Meq TABLET PO ONE (08:15)
[2022-12-04] MEDS: Juven Orange Powder PACKET 27.5gm PO SCH (21:44)
[2022-12-04] MEDS ORDERED: InsuLIN REG 1unit/0.01ml Soln (100units/ml) SC SCH (22:00)
[2022-12-05] MEDS: HYDROmorphone HCL 2 MG/ML VL/or syr IV PRN ×5 (00:32→14:47)
[2022-12-05 05:00] VITALS: BP 109/64
[2022-12-05 06:39] LABS: BUN/Creatinine Ratio 16.9; Calcium 8.1 mg/dL (8.5-10.1)
[2022-12-05] MEDS: ACCU-CHEK COMFORT CURVE STRIP VI SCH ×3 (06:54→17:00)
[2022-12-05] MEDS: InsuLIN REG 1unit/0.01ml Soln (100units/ml) SC SCH ×3 (06:55→17:00)
[2022-12-05] MEDS: Juven Orange Powder PACKET 27.5gm PO SCH (08:21)
[2022-12-05 09:21] VITALS: BP 122/72
[2022-12-05] MEDS ORDERED: POTASSIUM CHL 20 Meq TABLET PO ONE (09:30)
[2022-12-05 13:00] VITALS: BP 136/88
[2022-12-05 13:04] VITALS: BP 136/88
[2022-12-05 16:49] VITALS: BP 137/84
== END 2022-12-05 17:50 | disposition home or self-care (01) | DRG 605 ==
LOC: ER 18:29 → OVERFLOW 11-30 12:58 → CENTRAL 12-01 15:07
PROVIDERS: ADMIT Hospitalist; ATTEND Internal Medicine Geriatric Medicine
DX: S31.109A Unspecified open wound of abdominal wall, unspecified quadrant without penetration into peritoneal cavity, initial encounter (principal); F11.20 Opioid dependence, uncomplicated; E11.9 Type 2 diabetes mellitus without complications; E66.01 Morbid (severe) obesity due to excess calories; G89.4 Chronic pain syndrome; I10 Essential (primary) hypertension; E87.6 Hypokalemia; Z85.3 Personal history of malignant neoplasm of breast; X58.XXXA Exposure to other specified factors, initial encounter; Z88.0 Allergy status to penicillin; Z80.3 Family history of malignant neoplasm of breast; Z82.49 Family history of ischemic heart disease and other diseases of the circulatory system; Z83.3 Family history of diabetes mellitus; Z95.0 Presence of cardiac pacemaker; Z88.8 Allergy status to other drugs, medicaments and biological substances; Z90.49 Acquired absence of other specified parts of digestive tract; Y93.89 Activity, other specified; Y92.89 Other specified places as the place of occurrence of the external cause; Y99.8 Other external cause status; Z68.39 Body mass index [BMI] 39.0-39.9, adult; Z20.822 Contact with and (suspected) exposure to COVID-19
CPT/HCPCS: 36415; 71045; 74018; 74177; 74250; 80048; 80053; 81001; 82962; 83735; 85025; 87426; 93005; 96360; G0378; J1815; J2405

== ENCOUNTER 2023-07-22 02:02 | Inpatient (IN) | payer MEDICARE, OTHER ==
[~2023-07-22] VITALS: Ht 180.3 cm; Wt 121.0 kg
[~2023-07-22 02:02] MED LIST changes: -AMLO-496 PO; +AMLO1TAB23 PO; -AMPI500C8 PO; -CLIN300C8 PO; -INSU100I44 SC; +INSU100I54 SC; -LISI20TA28 PO; +LISI20TA56 PO; +TRAZ-227 PO; -TRAZ50TA2 PO
[2023-07-22 02:45] VITALS: PULSE 116; O2SAT 91
[2023-07-22] MEDS ORDERED: ONDANSETRON HCL 4 MG/2 ML VIAL IV ONE ×2 (02:45→03:45)
[2023-07-22] MEDS ORDERED: MORPHINE SULFATE 4 MG/ML SYR/VIAL IV ONE (02:45)
[2023-07-22 03:44] LABS: Albumin 4.3 g/dL (3.2-4.8); Alkaline Phosphatase 129 U/L (46-116); Anion Gap 9 (5-15); Aspartate Aminotransferase 8 U/L (13-40); BUN/Creatinine Ratio 7.4 (10.0-20.0); Bilirubin, Total 0.7 mg/dL (0.2-1.0); Blood Urea Nitrogen 7 mg/dL (9-23); Calcium 8.4 mg/dL (8.7-10.4); Carbon Dioxide 25 mmol/L (20-30); Chloride 100 mmol/L (98-107); Glucose 366 mg/dL (74-106); Lipase 33 U/L (12-53); Potassium 3.6 mmol/L (3.5-5.1); Sodium 134 mmol/L (136-145)
[2023-07-22 03:45] LABS: Lactic Acid w/Reflex 2.2 mmol/L (0.4-2.0)
[2023-07-22] MEDS ORDERED: VANCOMYCIN 1GM/250ML 250 ML IV ONE (03:45)
[2023-07-22 04:10] LABS: Alanine Aminotransferase < 9 U/L (7-40)
[2023-07-22] MEDS ORDERED: HYDROmorphone HCL 2 MG/ML VL/or syr IV ONE (04:15)
[2023-07-22 04:45] LABS: Basophils # (auto) 0 10 ^3/uL (0-0.2); Eosinophils # (auto) 0 10 ^3/uL (0-0.8); Eosinophils % (auto) 0.4 % (0.0-7.0); Hemoglobin 15.6 g/dL (13.5-17.5); Lymphocytes # (auto) 0.5 10 ^3/uL (0.4-5.4); Monocytes # (auto) 0.8 10 ^3/uL (0-1.3); Neutrophils # (auto) 7.4 10 ^3/uL (1.6-8.6); White Blood Cell 8.8 10^3/uL (4.4-10.8)
[2023-07-22] MEDS: SODIUM CHLORIDE 0.9% 4,000 ML IV ONE ×2 (04:47→06:25)
[2023-07-22 04:48] LABS: Basophils % (auto) 0.3 % (0.0-2.0); Hematocrit 47.1 % (41.0-53.0); Lymphocytes % (auto) 5.7 % (10.0-50.0); Mean Corpuscular Hemoglobin 27.1 pg (28.0-32.0); Monocytes % (auto) 9.1 % (0.0-12.0); Neutrophils % (auto) 84.5 % (37.0-80.0); Nucleated Red Blood Cells % 0.2 %; Red Blood Cells 5.74 10^6/uL (4.5-5.90); Red Cell Distribution Width 14.5 % (11.8-14.3)
[2023-07-22] MEDS ORDERED: SODIUM CHLORIDE 0.9% 4,000 ML IV ONE (05:15)
[2023-07-22] MEDS ORDERED: AZTREONAM 1 GM INJ VIAL ONE (06:51)
[2023-07-22] MEDS: AZTREONAM 1GM INJ 1 GM in D5W 5% 50 ML IV ONE ×2 (06:55→07:32)
[2023-07-22] MEDS ORDERED: HYDROmorphone HCL 2 MG/ML VL/or syr IV PRN ×2 (07:30→09:15)
[2023-07-22 07:51] VITALS: PULSE 119; RESP 13; O2SAT 95
[2023-07-22 08:05] LABS: Urine Bacteria NONE SEEN /hpf (None Seen); Urine Blood Negative /uL (Negative); Urine Clarity Clear (Clear); Urine Color Yellow (Yellow); Urine Protein, UAD 1+ (Negative); Urine Specific Gravity 1.033 (1.001-1.035); Urine Urobilinogen Normal (Negative); Urine WBC <1 /hpf (0 - 3)
[2023-07-22] MEDS ORDERED: ALBUTEROL SULF 2.5 MG/0.5ML(0.5%) NEB SOLN NEB PRN ×2 (09:15→12:15)
[2023-07-22] MEDS ORDERED: IPRATROPIUM BROM 0.5 MG/2.5ML INH SOL NEB PRN ×2 (09:15→12:15)
[2023-07-22] MEDS ORDERED: VANCOMYCIN PER PHARMACY 0 MG IV SCH ×2 (09:15→12:30)
[2023-07-22] MEDS ORDERED: DEXTROSE (50%) 50ML SYRG IV PRN ×2 (09:15→12:15)
[2023-07-22] MEDS ORDERED: ONDANSETRON HCL 4 MG/2 ML VIAL IV PRN (09:15)
[2023-07-22] MEDS ORDERED: SODIUM CHLORIDE 0.9% 1,000 ML IV SCH ×2 (09:15→10:45)
[2023-07-22] MEDS ORDERED: DOCUSATE SOD 100 MG CAP PO PRN (09:15)
[2023-07-22] MEDS ORDERED: levoFLOXacin 500MG 100 ML IV SCH (10:00)
[2023-07-22] MEDS ORDERED: CITALOPRAM HYDROBR 20 MG TAB PO SCH (10:00)
[2023-07-22] MEDS ORDERED: PATIENTS OWN MEDICATION (Metoprolol Tartrate 1 TAB) PO SCH (10:00)
[2023-07-22] MEDS ORDERED: PATIENTS OWN MEDICATION (Amlodipine Besylate 1 TAB) PO SCH (10:00)
[2023-07-22] MEDS ORDERED: LISINOPRIL 20 MG TAB PO SCH (10:00)
[2023-07-22] MEDS ORDERED: HYDROcodone-ACET 5/325MG TAB PO PRN (10:45)
[2023-07-22] MEDS ORDERED: MORPHINE SULFATE INJ 2 MG/ml SYRG IV PRN (10:45)
[2023-07-22] MEDS ORDERED: ACETAMINOPHEN 325 MG TAB PO PRN (10:45)
[2023-07-22] MEDS ORDERED: DOCUSATE SOD 100 MG CAP PO SCH (11:00)
[2023-07-22] MEDS ORDERED: InsuLIN REG 1unit/0.01ml Soln (100units/ml) SC SCH (12:00)
[2023-07-22] MEDS ORDERED: ACCU-CHEK COMFORT CURVE STRIP VI SCH (12:00)
[2023-07-22] MEDS ORDERED: cloNIDine HCL 0.1 MG TAB PO PRN (12:30)
[2023-07-22] MEDS: HYDROmorphone HCL 2 MG/ML VL/or syr IV PRN ×4 (13:00→23:08)
[2023-07-22] MEDS ORDERED: VANCOMYCIN 1GM/250ML 250 ML IV SCH ×2 (13:00)
[2023-07-22] MEDS: SODIUM CHLORIDE 0.9% 1,000 ML IV SCH ×2 (13:43→20:35)
[2023-07-22] MEDS ORDERED: cloNIDine HCL 0.1 MG TAB PO SCH (14:00)
[2023-07-22] MEDS: PIPERACILLIN-TAZOB 3.375GM 100 ML IV SCH ×2 (14:38→23:07)
[2023-07-22 15:55] VITALS: BP 113/69; PULSE 107; RESP 18; TEMP 98.1; O2SAT 95
[2023-07-22] MEDS: ONDANSETRON HCL 4 MG/2 ML VIAL IV PRN (16:16)
[2023-07-22 17:39] VITALS: O2SAT 95
[2023-07-22] MEDS: InsuLIN REG 1unit/0.01ml Soln (100units/ml) SC SCH ×2 (18:18→23:54)
[2023-07-22] MEDS: ACCU-CHEK COMFORT CURVE STRIP VI SCH ×2 (18:19→23:54)
[2023-07-22 19:40] VITALS: PULSE 95; RESP 18; O2SAT 96
[2023-07-22] MEDS: traZODone HCL 50 MG TAB PO SCH (22:00)
[2023-07-22] MEDS: METOPROLOL TARTRATE 50 MG TAB PO SCH (22:00)
[2023-07-22] MEDS: ATORVASTATIN 20 MG TAB PO SCH (22:00)
[2023-07-22] MEDS ORDERED: traZODone HCL 50 MG TAB PO SCH (22:00)
[2023-07-22] MEDS ORDERED: ATORVASTATIN 20 MG TAB PO SCH (22:00)
[2023-07-22 22:38] VITALS: PULSE 95; RESP 14; O2SAT 97
[2023-07-23] VITALS (9 sets, daily range): BP systolic 99–127; BP diastolic 65–83; PULSE 97–104; RESP 18–19; TEMP 97.8–98.2; O2SAT 90–92
[2023-07-23] MEDS: VANCOMYCIN 1GM/250ML 250 ML IV SCH ×3 (00:12→17:51)
[2023-07-23] MEDS: PIPERACILLIN-TAZOB 3.375GM 100 ML IV SCH ×5 (02:00→22:52)
[2023-07-23] MEDS ORDERED: PIPERACILLIN-TAZOB 3.375GM 100 ML IV SCH ×2 (02:30)
[2023-07-23] MEDS: HYDROmorphone HCL 2 MG/ML VL/or syr IV PRN ×6 (03:17→21:32)
[2023-07-23] MEDS: SODIUM CHLORIDE 0.9% 1,000 ML IV SCH ×3 (04:55→21:28)
[2023-07-23] MEDS: ACCU-CHEK COMFORT CURVE STRIP VI SCH ×4 (05:46→22:53)
[2023-07-23] MEDS: InsuLIN REG 1unit/0.01ml Soln (100units/ml) SC SCH ×4 (05:46→22:54)
[2023-07-23] MEDS ORDERED: HCTZ 25 MG TAB PO SCH (07:00)
[2023-07-23] MEDS: HCTZ 25 MG TAB PO SCH (07:00)
[2023-07-23 07:37] LABS: Basophils # (auto) 0 10 ^3/uL (0-0.2); Eosinophils # (auto) 0.1 10 ^3/uL (0-0.8); Eosinophils % (auto) 2.3 % (0.0-7.0); Hemoglobin 13.8 g/dL (13.5-17.5); Lymphocytes # (auto) 0.7 10 ^3/uL (0.4-5.4); White Blood Cell 3.8 10^3/uL (4.4-10.8)
[2023-07-23 07:39] LABS: Basophils % (auto) 0.5 % (0.0-2.0); Hematocrit 41.8 % (41.0-53.0); Mean Corpuscular Hemoglobin 26.9 pg (28.0-32.0); Mean Corpuscular Volume 81.4 fL (80.0-100.0); Monocytes # (auto) 0.5 10 ^3/uL (0-1.3); Monocytes % (auto) 14.3 % (0.0-12.0); Neutrophils # (auto) 2.5 10 ^3/uL (1.6-8.6); Neutrophils % (auto) 64.9 % (37.0-80.0); Nucleated Red Blood Cells % 0.2 %; Red Blood Cells 5.13 10^6/uL (4.5-5.90); Red Cell Distribution Width 14.9 % (11.8-14.3)
[2023-07-23 08:56] LABS: Albumin 3.7 g/dL (3.2-4.8); Alkaline Phosphatase 103 U/L (46-116); Anion Gap 6 (5-15); Aspartate Aminotransferase < 8 U/L (13-40); BUN/Creatinine Ratio 7.6 (10.0-20.0); Bilirubin, Total 0.8 mg/dL (0.2-1.0); Blood Urea Nitrogen 6 mg/dL (9-23); Calcium 8.1 mg/dL (8.7-10.4); Carbon Dioxide 27 mmol/L (20-30); Chloride 104 mmol/L (98-107); Potassium 3.5 mmol/L (3.5-5.1); Sodium 137 mmol/L (136-145); Total Protein 5.9 g/dL (5.7-8.2)
[2023-07-23 09:13] LABS: Alanine Aminotransferase < 9 U/L (7-40); Glucose 236 mg/dL (74-106)
[2023-07-23] MEDS: METOPROLOL TARTRATE 50 MG TAB PO SCH ×2 (10:00→21:20)
[2023-07-23] MEDS: CITALOPRAM HYDROBR 20 MG TAB PO SCH (10:00)
[2023-07-23] MEDS: LISINOPRIL 20 MG TAB PO SCH (10:00)
[2023-07-23] MEDS: amLODIPine BESYLATE 5 MG TAB PO SCH (10:00)
[2023-07-23] MEDS: PANTOPRAZOLE 40 MG/10 ML VIAL INJ IV SCH (10:04)
[2023-07-23] MEDS: ENOXAPARIN SOD 40 MG/0.4 ML SYRINGE SC SCH (10:04)
[2023-07-23] MEDS: MORPHINE SULFATE INJ 2 MG/ml SYRG IV PRN (15:37)
[2023-07-23] MEDS: traZODone HCL 50 MG TAB PO SCH (21:20)
[2023-07-23] MEDS: ATORVASTATIN 20 MG TAB PO SCH (21:20)
[2023-07-24] VITALS (9 sets, daily range): BP systolic 136–149; BP diastolic 79–89; PULSE 88–102; RESP 17–20; TEMP 98–98.6; O2SAT 91–96
[2023-07-24] MEDS: ONDANSETRON HCL 4 MG/2 ML VIAL IV PRN (00:39)
[2023-07-24] MEDS: HYDROmorphone HCL 2 MG/ML VL/or syr IV PRN ×6 (00:39→22:03)
[2023-07-24] MEDS: VANCOMYCIN 1GM/250ML 250 ML IV SCH ×2 (02:19→10:07)
[2023-07-24] MEDS: SODIUM CHLORIDE 0.9% 1,000 ML IV SCH ×3 (04:44→15:28)
[2023-07-24] MEDS: PIPERACILLIN-TAZOB 3.375GM 100 ML IV SCH ×4 (04:48→23:18)
[2023-07-24] MEDS: HCTZ 25 MG TAB PO SCH (04:58)
[2023-07-24] MEDS: InsuLIN REG 1unit/0.01ml Soln (100units/ml) SC SCH ×4 (04:59→23:31)
[2023-07-24] MEDS: ACCU-CHEK COMFORT CURVE STRIP VI SCH ×4 (04:59→23:19)
[2023-07-24 05:59] LABS: Anion Gap 5 (5-15); Carbon Dioxide 29 mmol/L (20-30); Chloride 103 mmol/L (98-107); Potassium 3.3 mmol/L (3.5-5.1); Sodium 137 mmol/L (136-145)
[2023-07-24 06:01] LABS: Calcium 8.2 mg/dL (8.5-10.1)
[2023-07-24 06:06] LABS: BUN/Creatinine Ratio 7.4 (10.0-20.0); Blood Urea Nitrogen < 5 mg/dL (9-23); Glucose 202 mg/dL (74-106)
[2023-07-24] MEDS: PANTOPRAZOLE 40 MG/10 ML VIAL INJ IV SCH (09:30)
[2023-07-24] MEDS: MORPHINE SULFATE INJ 2 MG/ml SYRG IV PRN (09:30)
[2023-07-24] MEDS: LISINOPRIL 20 MG TAB PO SCH ×2 (09:30→10:00)
[2023-07-24] MEDS: amLODIPine BESYLATE 5 MG TAB PO SCH ×2 (09:31→10:00)
[2023-07-24] MEDS: CITALOPRAM HYDROBR 20 MG TAB PO SCH ×2 (09:31→10:00)
[2023-07-24] MEDS: METOPROLOL TARTRATE 50 MG TAB PO SCH ×3 (09:31→22:00)
[2023-07-24] MEDS: ENOXAPARIN SOD 40 MG/0.4 ML SYRINGE SC SCH (09:32)
[2023-07-24] MEDS ORDERED: POTASSIUM CHL 20MEQ/100ML 100 ML IV ONE (11:00)
[2023-07-24] MEDS ORDERED: DEXTROSE (50%) 50ML SYRG IV PRN (11:00)
[2023-07-24] MEDS ORDERED: VANCOMYCIN 1GM/250ML 250 ML IV SCH (16:00)
[2023-07-24] MEDS ORDERED: hydrALAZINE HCL 20 MG/ML VL IV PRN (16:30)
[2023-07-24] MEDS ORDERED: LORazepam 2MG/ML-1ML VIAL IV ONE (16:45)
[2023-07-24] MEDS: traZODone HCL 50 MG TAB PO SCH (22:00)
[2023-07-24] MEDS: ATORVASTATIN 20 MG TAB PO SCH (22:00)
[2023-07-24] MEDS: LORazepam 2MG/ML-1ML VIAL IV PRN (23:27)
[2023-07-25] VITALS (9 sets, daily range): BP systolic 122–144; BP diastolic 79–89; PULSE 85–116; RESP 16–19; TEMP 97.8–98.7; O2SAT 90–95
[2023-07-25] MEDS: HYDROmorphone HCL 2 MG/ML VL/or syr IV PRN ×7 (01:24→23:54)
[2023-07-25] MEDS: PIPERACILLIN-TAZOB 3.375GM 100 ML IV SCH ×4 (05:22→22:40)
[2023-07-25] MEDS: ACCU-CHEK COMFORT CURVE STRIP VI SCH ×4 (05:23→23:52)
[2023-07-25] MEDS: SODIUM CHLORIDE 0.9% 1,000 ML IV SCH ×3 (05:24→19:41)
[2023-07-25] MEDS: InsuLIN REG 1unit/0.01ml Soln (100units/ml) SC SCH ×4 (05:25→23:53)
[2023-07-25] MEDS: HCTZ 25 MG TAB PO SCH (05:25)
[2023-07-25 05:32] LABS: Basophils # (auto) 0 10 ^3/uL (0-0.2); Basophils % (auto) 0.6 % (0.0-2.0); Eosinophils # (auto) 0.1 10 ^3/uL (0-0.8); Eosinophils % (auto) 1.9 % (0.0-7.0); Hematocrit 41.5 % (41.0-53.0); Lymphocytes % (auto) 16.5 % (10.0-50.0); Mean Corpuscular Hemoglobin 27.1 pg (28.0-32.0); Mean Corpuscular Hgb Conc. 33.8 g/dL (32.0-36.0); Mean Corpuscular Volume 80.3 fL (80.0-100.0); Monocytes # (auto) 0.7 10 ^3/uL (0-1.3); Monocytes % (auto) 10.9 % (0.0-12.0); Neutrophils # (auto) 4.4 10 ^3/uL (1.6-8.6); Neutrophils % (auto) 70.1 % (37.0-80.0); Nucleated Red Blood Cells % 0.2 %; Red Blood Cells 5.17 10^6/uL (4.5-5.90); Red Cell Distribution Width 14.7 % (11.8-14.3); White Blood Cell 6.2 10^3/uL (4.4-10.8)
[2023-07-25 05:51] LABS: Albumin 3.6 g/dL (3.2-4.8); Alkaline Phosphatase 100 U/L (46-116); Anion Gap 3 (5-15); Aspartate Aminotransferase 8 U/L (13-40); Bilirubin, Total 0.7 mg/dL (0.2-1.0); Calcium 8.5 mg/dL (8.7-10.4); Carbon Dioxide 30 mmol/L (20-30); Chloride 105 mmol/L (98-107); Glucose 153 mg/dL (74-106); Magnesium 1.7 mg/dL (1.6-2.6); Potassium 3.3 mmol/L (3.5-5.1); Sodium 138 mmol/L (136-145); Total Protein 5.8 g/dL (5.7-8.2)
[2023-07-25 05:52] LABS: Alanine Aminotransferase < 9 U/L (7-40); BUN/Creatinine Ratio 7.2 (10.0-20.0); Blood Urea Nitrogen < 5 mg/dL (9-23)
[2023-07-25] MEDS ORDERED: POTASSIUM CHL 20MEQ/100ML 100 ML IV ONE (07:30)
[2023-07-25] MEDS: ENOXAPARIN SOD 40 MG/0.4 ML SYRINGE SC SCH (08:15)
[2023-07-25] MEDS: METOPROLOL TARTRATE 50 MG TAB PO SCH ×2 (08:23→21:12)
[2023-07-25] MEDS: CITALOPRAM HYDROBR 20 MG TAB PO SCH (08:23)
[2023-07-25] MEDS: amLODIPine BESYLATE 5 MG TAB PO SCH (08:24)
[2023-07-25] MEDS: LISINOPRIL 20 MG TAB PO SCH (08:24)
[2023-07-25] MEDS ORDERED: POTASSIUM CHLORIDE 20 MEQ, LIDOCAINE 1% (LOCAL ANESTH.) 2 ML in SODIUM CHL 0.9% 100 ML IV ONE (09:00)
[2023-07-25] MEDS: LORazepam 2MG/ML-1ML VIAL IV PRN ×2 (10:08→19:32)
[2023-07-25] MEDS: MEPERIDINE HCL (25 MG/ML) 1ML VIAL IV PRN ×2 (12:12→15:32)
[2023-07-25] MEDS ORDERED: GASTROGRAFIN 30 ML SOL ONE (14:17)
[2023-07-25] MEDS: traZODone HCL 50 MG TAB PO SCH (21:12)
[2023-07-25] MEDS: ATORVASTATIN 20 MG TAB PO SCH (21:12)
[2023-07-26] VITALS (9 sets, daily range): BP systolic 137–145; BP diastolic 82–90; PULSE 86–100; RESP 14–18; TEMP 97.5–98.4; O2SAT 89–96
[2023-07-26] MEDS: MEPERIDINE HCL (25 MG/ML) 1ML VIAL IV PRN ×2 (02:34→15:40)
[2023-07-26] MEDS: PIPERACILLIN-TAZOB 3.375GM 100 ML IV SCH ×4 (04:07→23:12)
[2023-07-26] MEDS: HYDROmorphone HCL 2 MG/ML VL/or syr IV PRN ×7 (04:08→23:12)
[2023-07-26] MEDS: ACCU-CHEK COMFORT CURVE STRIP VI SCH ×3 (05:06→17:17)
[2023-07-26] MEDS: InsuLIN REG 1unit/0.01ml Soln (100units/ml) SC SCH ×3 (05:07→17:33)
[2023-07-26] MEDS: HCTZ 25 MG TAB PO SCH (05:07)
[2023-07-26 07:41] LABS: Albumin 3.7 g/dL (3.2-4.8); Alkaline Phosphatase 100 U/L (46-116); Anion Gap 8 (5-15); Aspartate Aminotransferase 9 U/L (13-40); BUN/Creatinine Ratio 7.6 (10.0-20.0); Blood Urea Nitrogen 5 mg/dL (9-23); Calcium 8.5 mg/dL (8.7-10.4); Carbon Dioxide 26 mmol/L (20-30); Chloride 105 mmol/L (98-107); Glucose 144 mg/dL (74-106); Magnesium 1.6 mg/dL (1.6-2.6); Sodium 139 mmol/L (136-145)
[2023-07-26 07:42] LABS: Alanine Aminotransferase < 9 U/L (7-40); Bilirubin, Total 0.7 mg/dL (0.2-1.0)
[2023-07-26 07:50] LABS: Hemoglobin 14.4 g/dL (13.5-17.5); White Blood Cell 8.9 10^3/uL (4.4-10.8)
[2023-07-26 07:52] LABS: Hematocrit 43.9 % (41.0-53.0); Mean Corpuscular Hemoglobin 26.9 pg (28.0-32.0); Mean Corpuscular Hgb Conc. 32.8 g/dL (32.0-36.0); Red Blood Cells 5.36 10^6/uL (4.5-5.90); Red Cell Distribution Width 14.3 % (11.8-14.3)
[2023-07-26 07:55] LABS: Basophils % (manual) 0 (0.0-2.0); Blast Cells 0; Myelocytes % 0; Promyelocytes % 0; Reactive Lymphocytes 0
[2023-07-26] MEDS: SODIUM CHLORIDE 0.9% 1,000 ML IV SCH ×2 (07:55→16:15)
[2023-07-26] MEDS ORDERED: POTASSIUM CHLORIDE 40 MEQ, LIDOCAINE 1% (LOCAL ANESTH.) 4 ML in SODIUM CHL 0.9% 250 ML IV ONE (08:00)
[2023-07-26 08:26] LABS: Band Neutrophils % (manual) 6; Eosinophils % (manual) 2 (0-7); Lymphocytes % (manual) 11 (10.0-50.0); Metamyelocytes % 2; Monocytes % (manual) 11 (0-12); Platelet Estimate Adequate
[2023-07-26] MEDS: ENOXAPARIN SOD 40 MG/0.4 ML SYRINGE SC SCH (08:35)
[2023-07-26] MEDS: NYSTATIN-TRIAMCINOLONE TOPICAL CRE 15GM TOP SCH ×2 (09:30→22:00)
[2023-07-26] MEDS: METOPROLOL TARTRATE 50 MG TAB PO SCH ×2 (10:00→22:00)
[2023-07-26] MEDS: LISINOPRIL 20 MG TAB PO SCH (10:00)
[2023-07-26] MEDS: amLODIPine BESYLATE 5 MG TAB PO SCH (10:00)
[2023-07-26] MEDS: CITALOPRAM HYDROBR 20 MG TAB PO SCH (10:00)
[2023-07-26] MEDS: LORazepam 2MG/ML-1ML VIAL IV PRN ×2 (11:11→21:57)
[2023-07-26] MEDS ORDERED: GASTROGRAFIN 30 ML SOL ONE (13:23)
[2023-07-26] MEDS: ATORVASTATIN 20 MG TAB PO SCH (22:00)
[2023-07-26] MEDS: traZODone HCL 50 MG TAB PO SCH (22:00)
[2023-07-27] VITALS (8 sets, daily range): BP systolic 117–155; BP diastolic 74–89; PULSE 76–94; RESP 14–20; TEMP 97.4–98.4; O2SAT 93–98
[2023-07-27] MEDS: MEPERIDINE HCL (25 MG/ML) 1ML VIAL IV PRN ×4 (00:04→17:46)
[2023-07-27] MEDS: SODIUM CHLORIDE 0.9% 1,000 ML IV SCH ×3 (00:05→17:15)
[2023-07-27] MEDS: ACCU-CHEK COMFORT CURVE STRIP VI SCH ×5 (00:21→23:24)
[2023-07-27] MEDS: HYDROmorphone HCL 2 MG/ML VL/or syr IV PRN ×6 (04:04→23:03)
[2023-07-27] MEDS: PIPERACILLIN-TAZOB 3.375GM 100 ML IV SCH ×4 (04:05→23:21)
[2023-07-27 05:40] LABS: Basophils # (auto) 0 10 ^3/uL (0-0.2); Basophils % (auto) 0.5 % (0.0-2.0); Eosinophils # (auto) 0.2 10 ^3/uL (0-0.8); Eosinophils % (auto) 2.3 % (0.0-7.0); Hemoglobin 14.4 g/dL (13.5-17.5); Lymphocytes # (auto) 1.1 10 ^3/uL (0.4-5.4); Mean Corpuscular Hemoglobin 26.6 pg (28.0-32.0); Mean Corpuscular Hgb Conc. 32.7 g/dL (32.0-36.0); Mean Corpuscular Volume 81.3 fL (80.0-100.0); Monocytes # (auto) 0.7 10 ^3/uL (0-1.3); Monocytes % (auto) 8.9 % (0.0-12.0); Neutrophils # (auto) 6.2 10 ^3/uL (1.6-8.6); Neutrophils % (auto) 75.3 % (37.0-80.0); Red Blood Cells 5.42 10^6/uL (4.5-5.90); Red Cell Distribution Width 14.5 % (11.8-14.3); White Blood Cell 8.3 10^3/uL (4.4-10.8)
[2023-07-27] MEDS: InsuLIN REG 1unit/0.01ml Soln (100units/ml) SC SCH ×4 (05:58→17:54)
[2023-07-27 06:07] LABS: Albumin 3.8 g/dL (3.2-4.8); Alkaline Phosphatase 101 U/L (46-116); Anion Gap 7 (5-15); Aspartate Aminotransferase 12 U/L (13-40); BUN/Creatinine Ratio 11.4 (10.0-20.0); Blood Urea Nitrogen 8 mg/dL (9-23); Calcium 8.6 mg/dL (8.7-10.4); Carbon Dioxide 27 mmol/L (20-30); Chloride 108 mmol/L (98-107); Folate (Folic Acid) 21.83 ng/mL (>5.38); Glucose 139 mg/dL (74-106); Magnesium 1.7 mg/dL (1.6-2.6); Potassium 3.4 mmol/L (3.5-5.1); Sodium 142 mmol/L (136-145)
[2023-07-27 06:08] LABS: Bilirubin, Total 0.7 mg/dL (0.2-1.0)
[2023-07-27 06:28] LABS: Alanine Aminotransferase < 9 U/L (7-40)
[2023-07-27] MEDS ORDERED: POTASSIUM CHLORIDE 40 MEQ, LIDOCAINE 1% (LOCAL ANESTH.) 4 ML in SODIUM CHL 0.9% 250 ML IV ONE (06:45)
[2023-07-27] MEDS: HCTZ 25 MG TAB PO SCH (06:54)
[2023-07-27] MEDS: ENOXAPARIN SOD 40 MG/0.4 ML SYRINGE SC SCH (08:17)
[2023-07-27] MEDS: CITALOPRAM HYDROBR 20 MG TAB PO SCH (09:22)
[2023-07-27] MEDS: METOPROLOL TARTRATE 50 MG TAB PO SCH ×2 (09:23→22:00)
[2023-07-27] MEDS: LISINOPRIL 20 MG TAB PO SCH (09:23)
[2023-07-27] MEDS: amLODIPine BESYLATE 5 MG TAB PO SCH (09:23)
[2023-07-27] MEDS: NYSTATIN-TRIAMCINOLONE TOPICAL CRE 15GM TOP SCH ×2 (10:00→22:00)
[2023-07-27] MEDS: LORazepam 2MG/ML-1ML VIAL IV PRN ×2 (13:11→20:53)
[2023-07-27] MEDS: traZODone HCL 50 MG TAB PO SCH (22:00)
[2023-07-27] MEDS: ATORVASTATIN 20 MG TAB PO SCH (22:00)
[2023-07-28] VITALS (9 sets, daily range): BP systolic 130–156; BP diastolic 67–89; PULSE 75–89; RESP 18–22; TEMP 97.2–98.6; O2SAT 92–97
[2023-07-28] MEDS: MEPERIDINE HCL (25 MG/ML) 1ML VIAL IV PRN ×4 (00:17→22:40)
[2023-07-28] MEDS: SODIUM CHLORIDE 0.9% 1,000 ML IV SCH ×5 (01:35→23:15)
[2023-07-28] MEDS: HYDROmorphone HCL 2 MG/ML VL/or syr IV PRN ×6 (04:15→21:18)
[2023-07-28] MEDS: PIPERACILLIN-TAZOB 3.375GM 100 ML IV SCH ×4 (05:16→22:39)
[2023-07-28] MEDS: ACCU-CHEK COMFORT CURVE STRIP VI SCH ×4 (05:31→23:17)
[2023-07-28] MEDS: InsuLIN REG 1unit/0.01ml Soln (100units/ml) SC SCH ×5 (06:00→23:17)
[2023-07-28 06:24] LABS: Basophils # (auto) 0 10 ^3/uL (0-0.2); Basophils % (auto) 0.4 % (0.0-2.0); Eosinophils # (auto) 0.2 10 ^3/uL (0-0.8); Eosinophils % (auto) 2.3 % (0.0-7.0); Hematocrit 44.1 % (41.0-53.0); Hemoglobin 14.6 g/dL (13.5-17.5); Lymphocytes % (auto) 12.1 % (10.0-50.0); Mean Corpuscular Hemoglobin 27.1 pg (28.0-32.0); Mean Corpuscular Hgb Conc. 33.1 g/dL (32.0-36.0); Mean Corpuscular Volume 81.7 fL (80.0-100.0); Monocytes # (auto) 0.7 10 ^3/uL (0-1.3); Monocytes % (auto) 8.9 % (0.0-12.0); Neutrophils # (auto) 6.4 10 ^3/uL (1.6-8.6); Neutrophils % (auto) 76.3 % (37.0-80.0); Nucleated Red Blood Cells % 0.2 %; Red Cell Distribution Width 14.4 % (11.8-14.3); White Blood Cell 8.4 10^3/uL (4.4-10.8)
[2023-07-28 06:57] LABS: Alkaline Phosphatase 102 U/L (46-116); Anion Gap 9 (5-15); Calcium 8.9 mg/dL (8.7-10.4); Carbon Dioxide 24 mmol/L (20-30); Chloride 109 mmol/L (98-107); Potassium 3.6 mmol/L (3.5-5.1); Sodium 142 mmol/L (136-145)
[2023-07-28 06:58] LABS: Glucose 114 mg/dL (74-106)
[2023-07-28 06:59] LABS: BUN/Creatinine Ratio 7.7 (10.0-20.0); Blood Urea Nitrogen 5 mg/dL (9-23); Magnesium 1.7 mg/dL (1.6-2.6)
[2023-07-28 07:00] LABS: Albumin 3.8 g/dL (3.2-4.8); Aspartate Aminotransferase 13 U/L (13-40)
[2023-07-28] MEDS: HCTZ 25 MG TAB PO SCH (07:00)
[2023-07-28 07:01] LABS: Bilirubin, Total 0.7 mg/dL (0.2-1.0); Total Protein 6.1 g/dL (5.7-8.2)
[2023-07-28 07:07] LABS: Alanine Aminotransferase < 9 U/L (7-40)
[2023-07-28] MEDS: LISINOPRIL 20 MG TAB PO SCH (10:00)
[2023-07-28] MEDS: NYSTATIN-TRIAMCINOLONE TOPICAL CRE 15GM TOP SCH ×2 (10:00→22:00)
[2023-07-28] MEDS: CITALOPRAM HYDROBR 20 MG TAB PO SCH (10:00)
[2023-07-28] MEDS: amLODIPine BESYLATE 5 MG TAB PO SCH (10:00)
[2023-07-28] MEDS: METOPROLOL TARTRATE 50 MG TAB PO SCH ×2 (10:00→22:00)
[2023-07-28] MEDS: ENOXAPARIN SOD 40 MG/0.4 ML SYRINGE SC SCH (11:31)
[2023-07-28] MEDS: ATORVASTATIN 20 MG TAB PO SCH (22:00)
[2023-07-28] MEDS: traZODone HCL 50 MG TAB PO SCH (22:00)
[2023-07-28] MEDS: LORazepam 2MG/ML-1ML VIAL IV PRN (22:14)
[2023-07-29] VITALS (7 sets, daily range): BP systolic 124–135; BP diastolic 64–88; PULSE 69–81; RESP 14–18; TEMP 97.5–98; O2SAT 90–95
[2023-07-29] MEDS: HYDROmorphone HCL 2 MG/ML VL/or syr IV PRN ×8 (00:20→23:25)
[2023-07-29] MEDS: ACCU-CHEK COMFORT CURVE STRIP VI SCH ×4 (05:31→23:28)
[2023-07-29] MEDS: PIPERACILLIN-TAZOB 3.375GM 100 ML IV SCH ×4 (05:31→23:07)
[2023-07-29] MEDS: MEPERIDINE HCL (25 MG/ML) 1ML VIAL IV PRN ×2 (05:47→09:54)
[2023-07-29] MEDS: InsuLIN REG 1unit/0.01ml Soln (100units/ml) SC SCH ×4 (05:48→23:28)
[2023-07-29] MEDS: HCTZ 25 MG TAB PO SCH (05:50)
[2023-07-29 06:10] LABS: Basophils # (auto) 0 10 ^3/uL (0-0.2); Basophils % (auto) 0.4 % (0.0-2.0); Eosinophils # (auto) 0.2 10 ^3/uL (0-0.8); Eosinophils % (auto) 2.3 % (0.0-7.0); Hematocrit 44.3 % (41.0-53.0); Hemoglobin 14.9 g/dL (13.5-17.5); Lymphocytes # (auto) 1.1 10 ^3/uL (0.4-5.4); Lymphocytes % (auto) 12.7 % (10.0-50.0); Mean Corpuscular Hemoglobin 27.2 pg (28.0-32.0); Mean Corpuscular Hgb Conc. 33.7 g/dL (32.0-36.0); Mean Corpuscular Volume 80.8 fL (80.0-100.0); Monocytes # (auto) 0.7 10 ^3/uL (0-1.3); Monocytes % (auto) 8.2 % (0.0-12.0); Neutrophils # (auto) 6.3 10 ^3/uL (1.6-8.6); Neutrophils % (auto) 76.4 % (37.0-80.0); Nucleated Red Blood Cells % 0.1 %; Red Blood Cells 5.49 10^6/uL (4.5-5.90); Red Cell Distribution Width 14.1 % (11.8-14.3); White Blood Cell 8.3 10^3/uL (4.4-10.8)
[2023-07-29 06:25] LABS: Alkaline Phosphatase 93 U/L (46-116); Anion Gap 11 (5-15); Blood Urea Nitrogen 7 mg/dL (9-23); Carbon Dioxide 28 mmol/L (20-30); Chloride 104 mmol/L (98-107); Glucose 113 mg/dL (74-106); Potassium 3.3 mmol/L (3.5-5.1); Sodium 143 mmol/L (136-145)
[2023-07-29 06:26] LABS: Albumin 3.9 g/dL (3.2-4.8); Aspartate Aminotransferase 11 U/L (13-40)
[2023-07-29 06:27] LABS: Alanine Aminotransferase < 9 U/L (7-40); Bilirubin, Total 0.9 mg/dL (0.2-1.0); Total Protein 6.2 g/dL (5.7-8.2)
[2023-07-29 07:03] LABS: Magnesium 1.6 mg/dL (1.6-2.6)
[2023-07-29] MEDS: ENOXAPARIN SOD 40 MG/0.4 ML SYRINGE SC SCH (09:53)
[2023-07-29] MEDS: NYSTATIN-TRIAMCINOLONE TOPICAL CRE 15GM TOP SCH ×2 (10:00→21:31)
[2023-07-29] MEDS: LISINOPRIL 20 MG TAB PO SCH (10:00)
[2023-07-29] MEDS: amLODIPine BESYLATE 5 MG TAB PO SCH (10:00)
[2023-07-29] MEDS: METOPROLOL TARTRATE 50 MG TAB PO SCH ×2 (10:00→21:30)
[2023-07-29] MEDS: CITALOPRAM HYDROBR 20 MG TAB PO SCH (10:00)
[2023-07-29] MEDS: POTASSIUM CHL 20MEQ/100ML 100 ML IV SCH ×2 (10:54→14:05)
[2023-07-29] MEDS: LORazepam 2MG/ML-1ML VIAL IV PRN ×2 (11:53→20:02)
[2023-07-29] MEDS: SODIUM CHLORIDE 0.9% 1,000 ML IV SCH (20:35)
[2023-07-29] MEDS: traZODone HCL 50 MG TAB PO SCH (21:29)
[2023-07-29] MEDS: ATORVASTATIN 20 MG TAB PO SCH (21:29)
[2023-07-30] VITALS (10 sets, daily range): BP systolic 131–157; BP diastolic 63–77; PULSE 71–93; RESP 12–20; TEMP 97.7–98.6; O2SAT 92–99
[2023-07-30] MEDS: HYDROmorphone HCL 2 MG/ML VL/or syr IV PRN ×8 (02:27→23:21)
[2023-07-30] MEDS: SODIUM CHLORIDE 0.9% 1,000 ML IV SCH ×2 (03:35→13:02)
[2023-07-30] MEDS: PIPERACILLIN-TAZOB 3.375GM 100 ML IV SCH ×4 (05:16→23:23)
[2023-07-30] MEDS: ACCU-CHEK COMFORT CURVE STRIP VI SCH ×3 (05:27→18:18)
[2023-07-30] MEDS: InsuLIN REG 1unit/0.01ml Soln (100units/ml) SC SCH ×3 (05:27→18:00)
[2023-07-30] MEDS: HCTZ 25 MG TAB PO SCH (07:00)
[2023-07-30] MEDS: ENOXAPARIN SOD 40 MG/0.4 ML SYRINGE SC SCH (08:25)
[2023-07-30 09:11] LABS: Basophils # (auto) 0 10 ^3/uL (0-0.2); Basophils % (auto) 0.7 % (0.0-2.0); Eosinophils # (auto) 0.2 10 ^3/uL (0-0.8); Eosinophils % (auto) 2.5 % (0.0-7.0); Hematocrit 43.5 % (41.0-53.0); Hemoglobin 14.6 g/dL (13.5-17.5); Lymphocytes # (auto) 1.2 10 ^3/uL (0.4-5.4); Mean Corpuscular Hgb Conc. 33.6 g/dL (32.0-36.0); Mean Corpuscular Volume 80.5 fL (80.0-100.0); Monocytes # (auto) 0.5 10 ^3/uL (0-1.3); Monocytes % (auto) 7.4 % (0.0-12.0); Neutrophils # (auto) 5.1 10 ^3/uL (1.6-8.6); Neutrophils % (auto) 72.4 % (37.0-80.0); Nucleated Red Blood Cells % 0.1 %; Red Cell Distribution Width 14.2 % (11.8-14.3)
[2023-07-30] MEDS: LORazepam 2MG/ML-1ML VIAL IV PRN ×2 (09:23→18:17)
[2023-07-30 09:31] LABS: Albumin 3.9 g/dL (3.2-4.8); Alkaline Phosphatase 92 U/L (46-116); Anion Gap 9 (5-15); Aspartate Aminotransferase 10 U/L (13-40); BUN/Creatinine Ratio 9.7 (10.0-20.0); Bilirubin, Total 0.8 mg/dL (0.2-1.0); Blood Urea Nitrogen 6 mg/dL (9-23); Calcium 8.7 mg/dL (8.7-10.4); Carbon Dioxide 26 mmol/L (20-30); Chloride 106 mmol/L (98-107); Glucose 121 mg/dL (74-106); Magnesium 1.6 mg/dL (1.6-2.6); Potassium 3.2 mmol/L (3.5-5.1); Sodium 141 mmol/L (136-145); Total Protein 6.2 g/dL (5.7-8.2)
[2023-07-30 09:38] LABS: Alanine Aminotransferase < 9 U/L (7-40)
[2023-07-30] MEDS: amLODIPine BESYLATE 5 MG TAB PO SCH (10:00)
[2023-07-30] MEDS: CITALOPRAM HYDROBR 20 MG TAB PO SCH (10:00)
[2023-07-30] MEDS: NYSTATIN-TRIAMCINOLONE TOPICAL CRE 15GM TOP SCH ×2 (10:00→22:00)
[2023-07-30] MEDS: METOPROLOL TARTRATE 50 MG TAB PO SCH ×2 (10:00→22:00)
[2023-07-30] MEDS: LISINOPRIL 20 MG TAB PO SCH (10:00)
[2023-07-30] MEDS ORDERED: CLINIMIX PER PHARMACY 0 ML IV SCH (12:30)
[2023-07-30] MEDS ORDERED: VANCOMYCIN PER PHARMACY 0 MG IV SCH (12:45)
[2023-07-30] MEDS ORDERED: POTASSIUM CHLORIDE 40 MEQ, LIDOCAINE 1% (LOCAL ANESTH.) 4 ML in SODIUM CHL 0.9% 250 ML IV ONE (12:45)
[2023-07-30] MEDS ORDERED: VANCOMYCIN 1GM/250ML 250 ML IV ONE (13:00)
[2023-07-30] MEDS ORDERED: MAGNESIUM SULFATE 1GM/100ML 100 ML IV ONE (15:15)
[2023-07-30] MEDS: AMINO ACID INFUSION IN D10W 1,000 ML IV NR (19:26)
[2023-07-30] MEDS: VANCOMYCIN 1GM/250ML 250 ML IV SCH (21:57)
[2023-07-30] MEDS: traZODone HCL 50 MG TAB PO SCH (22:00)
[2023-07-30] MEDS: ATORVASTATIN 20 MG TAB PO SCH (22:00)
[2023-07-31] VITALS (11 sets, daily range): BP systolic 100–145; BP diastolic 56–89; PULSE 65–72; RESP 17–72; TEMP 97.9–99.1; O2SAT 92–95
[2023-07-31] MEDS ORDERED: DEXTROSE (50%) 50ML SYRG IV SCH
[2023-07-31] MEDS: InsuLIN REG 1unit/0.01ml Soln (100units/ml) SC SCH ×4 (00:01→17:54)
[2023-07-31] MEDS: SODIUM CHLORIDE 0.9% 1,000 ML IV SCH ×3 (00:04→13:38)
[2023-07-31] MEDS: HYDROmorphone HCL 2 MG/ML VL/or syr IV PRN ×6 (02:27→21:05)
[2023-07-31] MEDS: VANCOMYCIN 1GM/250ML 250 ML IV SCH ×3 (05:16→23:53)
[2023-07-31] MEDS: PIPERACILLIN-TAZOB 3.375GM 100 ML IV SCH ×4 (05:16→23:53)
[2023-07-31 06:04] LABS: Basophils # (auto) 0 10 ^3/uL (0-0.2); Basophils % (auto) 0.5 % (0.0-2.0); Eosinophils # (auto) 0.2 10 ^3/uL (0-0.8); Eosinophils % (auto) 2.3 % (0.0-7.0); Hematocrit 42.1 % (41.0-53.0); Hemoglobin 14.3 g/dL (13.5-17.5); Lymphocytes # (auto) 0.6 10 ^3/uL (0.4-5.4); Lymphocytes % (auto) 9.4 % (10.0-50.0); Mean Corpuscular Volume 79.4 fL (80.0-100.0); Monocytes # (auto) 0.5 10 ^3/uL (0-1.3); Monocytes % (auto) 7.1 % (0.0-12.0); Neutrophils # (auto) 5.5 10 ^3/uL (1.6-8.6); Neutrophils % (auto) 80.7 % (37.0-80.0); Nucleated Red Blood Cells % 0.4 %; Red Blood Cells 5.31 10^6/uL (4.5-5.90); Red Cell Distribution Width 14.1 % (11.8-14.3); White Blood Cell 6.8 10^3/uL (4.4-10.8)
[2023-07-31] MEDS: ACCU-CHEK COMFORT CURVE STRIP VI SCH ×4 (06:09→17:53)
[2023-07-31 06:34] LABS: Albumin 3.8 g/dL (3.2-4.8); Alkaline Phosphatase 81 U/L (46-116); Aspartate Aminotransferase 11 U/L (13-40); Bilirubin, Total 0.9 mg/dL (0.2-1.0); Calcium 8.5 mg/dL (8.5-10.1); Chloride 104 mmol/L (98-107); Glucose 137 mg/dL (74-106); Phosphorus 2.7 mg/dL (2.4-5.1); Potassium 3.2 mmol/L (3.5-5.1); Sodium 139 mmol/L (136-145)
[2023-07-31] MEDS: HCTZ 25 MG TAB PO SCH (06:35)
[2023-07-31 06:44] LABS: Alanine Aminotransferase < 9 U/L (7-40); BUN/Creatinine Ratio 8.8 (10.0-20.0); Blood Urea Nitrogen < 5 mg/dL (9-23)
[2023-07-31 07:01] LABS: Anion Gap 9 (5-15); Carbon Dioxide 26 mmol/L (20-30)
[2023-07-31] MEDS ORDERED: POTASSIUM CHLORIDE 60 MEQ, LIDOCAINE 1% (LOCAL ANESTH.) 6 ML in SODIUM CHL 0.9% 500 ML IV ONE (07:15)
[2023-07-31] MEDS ORDERED: HYDROmorphone HCL 2 MG/ML VL/or syr IV PRN (08:30)
[2023-07-31] MEDS: ENOXAPARIN SOD 40 MG/0.4 ML SYRINGE SC SCH (09:02)
[2023-07-31] MEDS: METOPROLOL TARTRATE 50 MG TAB PO SCH ×2 (09:09→22:00)
[2023-07-31] MEDS: amLODIPine BESYLATE 5 MG TAB PO SCH (09:09)
[2023-07-31] MEDS: CITALOPRAM HYDROBR 20 MG TAB PO SCH (09:09)
[2023-07-31] MEDS: NYSTATIN-TRIAMCINOLONE TOPICAL CRE 15GM TOP SCH ×2 (09:10→22:00)
[2023-07-31] MEDS: LISINOPRIL 20 MG TAB PO SCH (09:10)
[2023-07-31] MEDS: LORazepam 2MG/ML-1ML VIAL IV PRN ×3 (10:26→19:03)
[2023-07-31] MEDS: MEPERIDINE HCL (25 MG/ML) 1ML VIAL IV PRN (10:31)
[2023-07-31 12:31] LABS: Magnesium 1.6 mg/dL (1.6-2.6)
[2023-07-31] MEDS: MAGNESIUM SULFATE 1GM/100ML 100 ML IV SCH ×2 (18:30→21:01)
[2023-07-31] MEDS ORDERED: CYANOCOBALAMIN (B-12) 1000 MCG/1 ML VIAL IM ONE (19:00)
[2023-07-31] MEDS ORDERED: MAGNESIUM SULFATE 1GM/100ML 100 ML IV SCH (21:00)
[2023-07-31] MEDS: AMINO ACID INFUSION IN D10W 1,000 ML IV NR (21:01)
[2023-07-31] MEDS: ATORVASTATIN 20 MG TAB PO SCH (22:00)
[2023-07-31] MEDS: traZODone HCL 50 MG TAB PO SCH (22:00)
[2023-08-01] VITALS (9 sets, daily range): BP systolic 118–147; BP diastolic 50–90; PULSE 67–81; RESP 17–18; TEMP 97.7–99; O2SAT 90–95
[2023-08-01] MEDS: HYDROmorphone HCL 2 MG/ML VL/or syr IV PRN ×8 (00:06→21:23)
[2023-08-01] MEDS: InsuLIN REG 1unit/0.01ml Soln (100units/ml) SC SCH ×4 (00:33→18:09)
[2023-08-01] MEDS: ACCU-CHEK COMFORT CURVE STRIP VI SCH ×4 (00:33→18:08)
[2023-08-01] MEDS: PIPERACILLIN-TAZOB 3.375GM 100 ML IV SCH (06:02)
[2023-08-01] MEDS: VANCOMYCIN 1GM/250ML 250 ML IV SCH (06:18)
[2023-08-01 06:25] LABS: Albumin 3.7 g/dL (3.2-4.8); Alkaline Phosphatase 88 U/L (46-116); Aspartate Aminotransferase 15 U/L (13-40); Calcium 8.6 mg/dL (8.7-10.4); Chloride 104 mmol/L (98-107); Glucose 180 mg/dL (74-106); Magnesium 2.1 mg/dL (1.6-2.6); Sodium 136 mmol/L (136-145)
[2023-08-01 06:26] LABS: Phosphorus 2.6 mg/dL (2.4-5.1); Total Protein 6.1 g/dL (5.7-8.2)
[2023-08-01 06:31] LABS: Basophils # (auto) 0 10 ^3/uL (0-0.2); Basophils % (auto) 0.5 % (0.0-2.0); Eosinophils # (auto) 0.2 10 ^3/uL (0-0.8); Eosinophils % (auto) 2.1 % (0.0-7.0); Hematocrit 45.3 % (41.0-53.0); Hemoglobin 15.4 g/dL (13.5-17.5); Lymphocytes # (auto) 0.9 10 ^3/uL (0.4-5.4); Lymphocytes % (auto) 11.5 % (10.0-50.0); Mean Corpuscular Hemoglobin 27.6 pg (28.0-32.0); Mean Corpuscular Hgb Conc. 33.9 g/dL (32.0-36.0); Mean Corpuscular Volume 81.4 fL (80.0-100.0); Monocytes # (auto) 0.6 10 ^3/uL (0-1.3); Neutrophils # (auto) 6.4 10 ^3/uL (1.6-8.6); Neutrophils % (auto) 78.9 % (37.0-80.0); Nucleated Red Blood Cells % 1.2 %; Red Blood Cells 5.56 10^6/uL (4.5-5.90); Red Cell Distribution Width 14.4 % (11.8-14.3); White Blood Cell 8.1 10^3/uL (4.4-10.8)
[2023-08-01] MEDS: HCTZ 25 MG TAB PO SCH (07:00)
[2023-08-01 07:13] LABS: Alanine Aminotransferase < 9 U/L (7-40); BUN/Creatinine Ratio 7.7 (10.0-20.0); Blood Urea Nitrogen < 5 mg/dL (9-23)
[2023-08-01 07:14] LABS: Potassium 2.9 mmol/L (3.5-5.1)
[2023-08-01] MEDS: LORazepam 2MG/ML-1ML VIAL IV PRN ×2 (07:15→20:14)
[2023-08-01 07:30] LABS: Anion Gap 10 (5-15); Carbon Dioxide 22 mmol/L (20-30)
[2023-08-01 07:47] LABS: Platelet Estimate Adequate
[2023-08-01] MEDS ORDERED: POTASSIUM CHLORIDE 80 MEQ, LIDOCAINE 1% (LOCAL ANESTH.) 6 ML in SODIUM CHL 0.9% 500 ML IV ONE (08:15)
[2023-08-01] MEDS ORDERED: CYANOCOBALAMIN (B-12) 1000 MCG/1 ML VIAL IM ONE (08:30)
[2023-08-01] MEDS: NYSTATIN-TRIAMCINOLONE TOPICAL CRE 15GM TOP SCH ×2 (10:00→21:35)
[2023-08-01] MEDS: CITALOPRAM HYDROBR 20 MG TAB PO SCH (10:00)
[2023-08-01] MEDS: LISINOPRIL 20 MG TAB PO SCH (10:00)
[2023-08-01] MEDS: amLODIPine BESYLATE 5 MG TAB PO SCH (10:00)
[2023-08-01] MEDS: METOPROLOL TARTRATE 50 MG TAB PO SCH ×2 (10:00→21:35)
[2023-08-01] MEDS: ENOXAPARIN SOD 40 MG/0.4 ML SYRINGE SC SCH (10:06)
[2023-08-01] MEDS: ceFAZolin 2 GM in D5W 5% 100 ML IV SCH ×2 (15:27→21:21)
[2023-08-01] MEDS: AMINO ACID INFUSION IN D10W 1,000 ML IV NR (20:50)
[2023-08-01] MEDS: traZODone HCL 50 MG TAB PO SCH (21:34)
[2023-08-01] MEDS: ATORVASTATIN 20 MG TAB PO SCH (21:35)
[2023-08-02] VITALS (8 sets, daily range): BP systolic 120–138; BP diastolic 66–89; PULSE 57–89; RESP 18–20; TEMP 98–98.8; O2SAT 92–98
[2023-08-02] MEDS: ACCU-CHEK COMFORT CURVE STRIP VI SCH ×4 (01:01→16:45)
[2023-08-02] MEDS: HYDROmorphone HCL 2 MG/ML VL/or syr IV PRN ×7 (01:01→20:52)
[2023-08-02] MEDS: InsuLIN REG 1unit/0.01ml Soln (100units/ml) SC SCH ×4 (01:11→17:20)
[2023-08-02] MEDS: ceFAZolin 2 GM in D5W 5% 100 ML IV SCH ×3 (05:46→22:18)
[2023-08-02] MEDS: HCTZ 25 MG TAB PO SCH (05:48)
[2023-08-02 05:55] LABS: Eosinophils # (auto) 0.2 10 ^3/uL (0-0.8); Lymphocytes # (auto) 0.9 10 ^3/uL (0.4-5.4); Monocytes # (auto) 0.6 10 ^3/uL (0-1.3); Red Cell Distribution Width 14.3 % (11.8-14.3)
[2023-08-02 05:58] LABS: Basophils # (auto) 0.1 10 ^3/uL (0-0.2); Basophils % (auto) 0.8 % (0.0-2.0); Eosinophils % (auto) 2.8 % (0.0-7.0); Hematocrit 43.9 % (41.0-53.0); Lymphocytes % (auto) 12.4 % (10.0-50.0); Mean Corpuscular Hemoglobin 27.3 pg (28.0-32.0); Mean Corpuscular Hgb Conc. 34.1 g/dL (32.0-36.0); Mean Corpuscular Volume 79.8 fL (80.0-100.0); Monocytes % (auto) 8.2 % (0.0-12.0); Neutrophils # (auto) 5.6 10 ^3/uL (1.6-8.6); Neutrophils % (auto) 75.8 % (37.0-80.0); Nucleated Red Blood Cells % 0.1 %; White Blood Cell 7.4 10^3/uL (4.4-10.8)
[2023-08-02 05:59] LABS: Chloride 104 mmol/L (98-107); Sodium 138 mmol/L (136-145)
[2023-08-02 06:00] LABS: Anion Gap 8 (5-15); Carbon Dioxide 26 mmol/L (20-30)
[2023-08-02 06:01] LABS: Calcium 8.8 mg/dL (8.7-10.4)
[2023-08-02 06:05] LABS: GFR African American 186 mL/min; GFR Non-African American 154 mL/min; Glucose 181 mg/dL (74-106)
[2023-08-02 06:06] LABS: Magnesium 1.7 mg/dL (1.6-2.6)
[2023-08-02 06:07] LABS: Albumin 3.9 g/dL (3.2-4.8)
[2023-08-02 06:08] LABS: Phosphorus 3.1 mg/dL (2.4-5.1)
[2023-08-02 06:22] LABS: BUN/Creatinine Ratio 8.5 (10.0-20.0); Blood Urea Nitrogen < 5 mg/dL (9-23)
[2023-08-02 06:24] LABS: Potassium 2.9 mmol/L (3.5-5.1)
[2023-08-02] MEDS ORDERED: MAGNESIUM SULFATE 1GM/100ML 100 ML IV ONE (06:45)
[2023-08-02] MEDS ORDERED: POTASSIUM CHLORIDE 80 MEQ, LIDOCAINE 1% (LOCAL ANESTH.) 6 ML in SODIUM CHL 0.9% 500 ML IV ONE (06:45)
[2023-08-02] MEDS ORDERED: POTASSIUM CHL 20 Meq TABLET PO ONE (07:00)
[2023-08-02] MEDS: ENOXAPARIN SOD 40 MG/0.4 ML SYRINGE SC SCH (09:06)
[2023-08-02] MEDS: PANTOPRAZOLE 40 MG/10 ML VIAL INJ IV SCH ×2 (09:06→10:00)
[2023-08-02] MEDS: CITALOPRAM HYDROBR 20 MG TAB PO SCH (09:06)
[2023-08-02] MEDS: LISINOPRIL 20 MG TAB PO SCH (09:10)
[2023-08-02] MEDS: METOPROLOL TARTRATE 50 MG TAB PO SCH ×2 (09:10→22:00)
[2023-08-02] MEDS: NYSTATIN-TRIAMCINOLONE TOPICAL CRE 15GM TOP SCH ×2 (10:00→22:00)
[2023-08-02] MEDS: amLODIPine BESYLATE 5 MG TAB PO SCH (10:00)
[2023-08-02] MEDS: AMINO ACID INFUSION IN D10W 1,000 ML IV NR (20:52)
[2023-08-02] MEDS: traZODone HCL 50 MG TAB PO SCH (22:00)
[2023-08-02] MEDS: LORazepam 2MG/ML-1ML VIAL IV PRN (22:19)
[2023-08-02] MEDS: ATORVASTATIN 20 MG TAB PO SCH (22:22)
[2023-08-03 08:00] VITALS: BP 124/70; PULSE 66; RESP 16; TEMP 98.9; O2SAT 94
[2023-08-03 11:20] LABS: Albumin 3.7 g/dL (3.2-4.8); Alkaline Phosphatase 76 U/L (46-116); Anion Gap 8 (5-15); Aspartate Aminotransferase 13 U/L (13-40); BUN/Creatinine Ratio 10.3 (10.0-20.0); Bilirubin, Total 0.8 mg/dL (0.2-1.0); Blood Urea Nitrogen 6 mg/dL (9-23); Calcium 8.7 mg/dL (8.5-10.1); Carbon Dioxide 23 mmol/L (20-30); Chloride 106 mmol/L (98-107); GFR African American 190 mL/min; GFR Non-African American 157 mL/min; Glucose 161 mg/dL (74-106); Potassium 3.1 mmol/L (3.5-5.1); Sodium 137 mmol/L (136-145)
[2023-08-03 12:00] VITALS: BP 129/78; PULSE 59; RESP 16; TEMP 98.1; O2SAT 94
[2023-08-03 12:00] LABS: Alanine Aminotransferase < 9 U/L (7-40)
[2023-08-03] MEDS ORDERED: POTASSIUM EFFERVESENT TAB 25 MEQ PO ONE (12:15)
[2023-08-03 12:21] LABS: Basophils # (auto) 0 10 ^3/uL (0-0.2); Basophils % (auto) 0.5 % (0.0-2.0); Eosinophils # (auto) 0.2 10 ^3/uL (0-0.8); Eosinophils % (auto) 3.3 % (0.0-7.0); Hematocrit 43.4 % (41.0-53.0); Hemoglobin 14.6 g/dL (13.5-17.5); Lymphocytes # (auto) 1.3 10 ^3/uL (0.4-5.4); Lymphocytes % (auto) 16.6 % (10.0-50.0); Mean Corpuscular Hgb Conc. 33.6 g/dL (32.0-36.0); Mean Corpuscular Volume 80.4 fL (80.0-100.0); Monocytes # (auto) 0.6 10 ^3/uL (0-1.3); Monocytes % (auto) 8.5 % (0.0-12.0); Neutrophils # (auto) 5.3 10 ^3/uL (1.6-8.6); Neutrophils % (auto) 71.1 % (37.0-80.0); Nucleated Red Blood Cells % 0.5 %; Red Cell Distribution Width 14.4 % (11.8-14.3); White Blood Cell 7.5 10^3/uL (4.4-10.8)
[2023-08-03] MEDS: ceFAZolin 2 GM in D5W 5% 100 ML IV SCH ×3 (13:06→21:14)
[2023-08-03] MEDS: ACCU-CHEK COMFORT CURVE STRIP VI SCH ×5 (13:06→23:23)
[2023-08-03] MEDS: InsuLIN REG 1unit/0.01ml Soln (100units/ml) SC SCH ×5 (13:06→23:23)
[2023-08-03] MEDS: amLODIPine BESYLATE 5 MG TAB PO SCH (13:07)
[2023-08-03] MEDS: METOPROLOL TARTRATE 50 MG TAB PO SCH ×2 (13:07→21:14)
[2023-08-03] MEDS: HCTZ 25 MG TAB PO SCH (13:07)
[2023-08-03] MEDS: PANTOPRAZOLE 40 MG/10 ML VIAL INJ IV SCH (13:07)
[2023-08-03] MEDS: CITALOPRAM HYDROBR 20 MG TAB PO SCH (13:07)
[2023-08-03] MEDS: NYSTATIN-TRIAMCINOLONE TOPICAL CRE 15GM TOP SCH ×2 (13:08→21:15)
[2023-08-03] MEDS: LISINOPRIL 20 MG TAB PO SCH (13:08)
[2023-08-03 14:25] VITALS: BP 129/73; PULSE 65; RESP 20; O2SAT 95
[2023-08-03 15:04] LABS: Magnesium 1.8 mg/dL (1.6-2.6)
[2023-08-03 15:05] LABS: Phosphorus 3.5 mg/dL (2.4-5.1)
[2023-08-03] MEDS: HYDROmorphone HCL 2 MG/ML VL/or syr IV PRN ×3 (15:56→22:47)
[2023-08-03 16:00] VITALS: BP 147/85; PULSE 58; RESP 18; TEMP 97.9; O2SAT 94
[2023-08-03] MEDS: POTASSIUM CHL 20MEQ/100ML 100 ML IV SCH ×2 (18:56→22:48)
[2023-08-03 20:00] VITALS: PULSE 65; RESP 16; O2SAT 94
[2023-08-03] MEDS ORDERED: AMINO ACID INFUSION IN D10W 1,000 ML IV NR (20:00)
[2023-08-03] MEDS: traZODone HCL 50 MG TAB PO SCH (21:13)
[2023-08-03] MEDS: ATORVASTATIN 20 MG TAB PO SCH (21:14)
[2023-08-03 22:00] VITALS: BP 118/68; PULSE 65; RESP 16; TEMP 98; O2SAT 92
[2023-08-04] MEDS: HYDROmorphone HCL 2 MG/ML VL/or syr IV PRN ×5 (01:49→14:36)
[2023-08-04 05:00] VITALS: BP 111/65; PULSE 59; RESP 18; TEMP 98.5; O2SAT 94
[2023-08-04] MEDS: ceFAZolin 2 GM in D5W 5% 100 ML IV SCH ×2 (05:11→14:00)
[2023-08-04] MEDS: InsuLIN REG 1unit/0.01ml Soln (100units/ml) SC SCH ×3 (05:12→17:14)
[2023-08-04] MEDS: ACCU-CHEK COMFORT CURVE STRIP VI SCH ×3 (05:13→17:12)
[2023-08-04] MEDS: HCTZ 25 MG TAB PO SCH (06:01)
[2023-08-04 06:27] LABS: Eosinophils # (auto) 0.2 10 ^3/uL (0-0.8); Hemoglobin 14.8 g/dL (13.5-17.5); Neutrophils # (auto) 5.9 10 ^3/uL (1.6-8.6)
[2023-08-04 06:32] LABS: Basophils # (auto) 0.1 10 ^3/uL (0-0.2); Basophils % (auto) 0.6 % (0.0-2.0); Eosinophils % (auto) 2.9 % (0.0-7.0); Hematocrit 44.1 % (41.0-53.0); Lymphocytes # (auto) 1.5 10 ^3/uL (0.4-5.4); Lymphocytes % (auto) 17.7 % (10.0-50.0); Mean Corpuscular Hemoglobin 26.7 pg (28.0-32.0); Mean Corpuscular Hgb Conc. 33.5 g/dL (32.0-36.0); Mean Corpuscular Volume 79.6 fL (80.0-100.0); Monocytes # (auto) 0.8 10 ^3/uL (0-1.3); Monocytes % (auto) 9.6 % (0.0-12.0); Neutrophils % (auto) 69.2 % (37.0-80.0); Nucleated Red Blood Cells % 0.6 %; Red Blood Cells 5.54 10^6/uL (4.5-5.90); Red Cell Distribution Width 14.4 % (11.8-14.3); White Blood Cell 8.5 10^3/uL (4.4-10.8)
[2023-08-04 06:35] LABS: Albumin 3.9 g/dL (3.2-4.8); Alkaline Phosphatase 84 U/L (46-116); Anion Gap 8 (5-15); BUN/Creatinine Ratio 9.3 (10.0-20.0); Blood Urea Nitrogen 8 mg/dL (9-23); Calcium 9.1 mg/dL (8.7-10.4); Carbon Dioxide 25 mmol/L (20-30); Chloride 102 mmol/L (98-107); Glucose 144 mg/dL (74-106); Magnesium 1.6 mg/dL (1.6-2.6); Potassium 3.1 mmol/L (3.5-5.1); Sodium 135 mmol/L (136-145)
[2023-08-04 06:36] LABS: Aspartate Aminotransferase 18 U/L (13-40); Bilirubin, Total 0.9 mg/dL (0.2-1.0); Phosphorus 4.3 mg/dL (2.4-5.1); Total Protein 6.3 g/dL (5.7-8.2)
[2023-08-04 06:49] LABS: Alanine Aminotransferase < 9 U/L (7-40)
[2023-08-04] MEDS ORDERED: POTASSIUM EFFERVESENT TAB 25 MEQ PO SCH (07:15)
[2023-08-04 07:30] VITALS: O2SAT 94
[2023-08-04 08:00] VITALS: BP 130/68; PULSE 63; RESP 21; TEMP 97.5; O2SAT 94
[2023-08-04] MEDS: CITALOPRAM HYDROBR 20 MG TAB PO SCH (08:07)
[2023-08-04] MEDS: PANTOPRAZOLE 40 MG/10 ML VIAL INJ IV SCH (08:12)
[2023-08-04] MEDS: METOPROLOL TARTRATE 50 MG TAB PO SCH (10:00)
[2023-08-04] MEDS: LISINOPRIL 20 MG TAB PO SCH (10:00)
[2023-08-04] MEDS: NYSTATIN-TRIAMCINOLONE TOPICAL CRE 15GM TOP SCH (10:00)
[2023-08-04] MEDS: amLODIPine BESYLATE 5 MG TAB PO SCH (10:00)
[2023-08-04 12:00] VITALS: BP 118/63; PULSE 59; RESP 20; TEMP 97.8; O2SAT 93
[2023-08-04] MEDS ORDERED: CEPH250C PO (13:23)
[2023-08-04 14:26] VITALS: BP 125/72; PULSE 72; TEMP 36.4
[2023-08-04 16:00] VITALS: BP 102/56; PULSE 86; RESP 18; TEMP 98.4; O2SAT 95
== END 2023-08-04 18:00 | disposition home or self-care (01) | DRG 388 ==
LOC: EDBD 02:02 → ER 02:02 → TELE 09:15 → TELE-EAST 22:28 → EAST 08-01 11:47
PROVIDERS: ADMIT Internal Medicine; ATTEND Student in an Organized Health Care Education/Training Program
PROC: 0D9670Z Drainage of Stomach with Drainage Device, Via Natural or Artificial Opening (ICD-10-PCS; principal; 2023-07-31)
DX: K56.609 Unspecified intestinal obstruction, unspecified as to partial versus complete obstruction (principal); J96.01 Acute respiratory failure with hypoxia; N17.0 Acute kidney failure with tubular necrosis; E87.1 Hypo-osmolality and hyponatremia; E87.21 Acute metabolic acidosis; J98.11 Atelectasis; T81.30XA Disruption of wound, unspecified, initial encounter; L03.311 Cellulitis of abdominal wall; I42.9 Cardiomyopathy, unspecified; E86.0 Dehydration; J44.9 Chronic obstructive pulmonary disease, unspecified; G47.30 Sleep apnea, unspecified; E11.22 Type 2 diabetes mellitus with diabetic chronic kidney disease; N18.9 Chronic kidney disease, unspecified; I12.9 Hypertensive chronic kidney disease with stage 1 through stage 4 chronic kidney disease, or unspecified chronic kidney disease; K59.00 Constipation, unspecified; G47.33 Obstructive sleep apnea (adult) (pediatric); E87.6 Hypokalemia; E83.42 Hypomagnesemia; Y83.8 Other surgical procedures as the cause of abnormal reaction of the patient, or of later complication, without mention of misadventure at the time of the procedure; Y92.89 Other specified places as the place of occurrence of the external cause; R00.0 Tachycardia, unspecified; I27.20 Pulmonary hypertension, unspecified; L30.4 Erythema intertrigo; E53.8 Deficiency of other specified B group vitamins; E66.01 Morbid (severe) obesity due to excess calories; Z68.37 Body mass index [BMI] 37.0-37.9, adult; Z88.0 Allergy status to penicillin; Z83.3 Family history of diabetes mellitus; Z82.49 Family history of ischemic heart disease and other diseases of the circulatory system; Z80.3 Family history of malignant neoplasm of breast; Z79.899 Other long term (current) drug therapy; Z79.4 Long term (current) use of insulin; Z88.8 Allergy status to other drugs, medicaments and biological substances
CPT/HCPCS: 36415; 71045; 71250; 74018; 74176; 74250; 80048; 80053; 80069; 80202; 81001; 82306; 82607; 82746; 82962; 83036; 83605; 83690; 83735; 84100; 84484; 85007; 85025; 85027; 86850; 86900; 86901; 87040; 87077; 87186; 87205; 93005; 93306; 94640; 96365; 96375; 97162; 99291; C9113; G0378; J1815; J2001; J2405; J2543; J3480; J7060

== ENCOUNTER 2025-08-10 07:47 | Inpatient (IN) | payer OTHER ==
[~2025-08-10] VITALS: Ht 180.3 cm; Wt 115.0 kg
[2025-08-10] VITALS (8 sets, daily range): BP systolic 109–136; BP diastolic 64–79; PULSE 68–91; RESP 12–20; TEMP 98.2–98.8; O2SAT 93–99
[~2025-08-10 07:47] MED LIST changes: +ASPI-325 PO; +ATOR20TA50 PO; -CITA-77 PO; +CLOP75TA70 PO; -HYDR-4902 PO; -HYDR-531 PO; +LISI10TA34 PO; -METO-159 PO; +METO25TA36 PO; -TRAZ-227 PO
--- NOTE | 2025-08-10 08:15 | ED.PDOC ---
HPI (NEURO) HPI Comments 54 y.o male with PMHx of HTN, DM, PTCA, presents to the ED for a chief complaint of left sided numbness and tingling sensation s/p having a coughing fit this morning around 0700. Patient was ambulatory upon ED arrival and presents with no vision changes, slurred speech, nausea, vomiting, or chest pain. Patient also complains of left hip pain that has been ongoing for a while. Initial BP read 180/108. Patient is non compliant with medication as he ran out one year ago and cannot afford them. Chief Complaint: Left Sided Weakness Time Seen by MD: 08:07 Primary Care Provider: MYRTLE Reviewed Notes: Nurses Notes, Medications, Allergies Information Source: Patient Mode of Arrival: Ambulatory Severity: Moderate Headache Severity: None Timing: Hours (1) Duration: Since onset Weakness Location: (L) Sided Onset: At rest Circumstances: Spontaneous Symptoms: None History of: DM, Hypertension Modifying factors: Nothing Associated Signs and Symptoms: Weakness Past Medical History PAST MEDICAL HISTORY: COPD, DM, High Lipids, HTN Surgical History: Appendectomy, Cholecystectomy, Hernia Repair, Pacemaker Family History Family History: Family hx of DM, Family hx of Cancer, Family hx of HTN Social History Smoker: Non-Smoker Alcohol: Denies ETOH Use Drugs: Denies Drug Use Lives In: Home Constitutional: denies: chills, diaphoresis, fatigue, fever, malaise, sweats, weakness, others EENTM: denies: blurred vision, double vision, ear bleeding, ear discharge, ear drainage, ear pain, ear ringing, eye pain, eye redness, hearing loss, mouth pain, mouth swelling, nasal discharge, nose bleeding, nose congestion, nose pain, photophobia, tearing, throat pain, throat swelling, voice changes, others Respiratory: denies: cough, hemoptysis, orthopnea, SOB at rest, shortness of breath, SOB with excertion, stridor, wheezing, others Cardiovascular: denies: chest pain, dizzy spells, diaphoresis, Dyspnea on exertion, edema, irregular heart beat, left arm pain, lightheadedness, palpitations, PND, syncope, others Gastrointestinal: denies: abdomen distended, abdominal pain, blood streaked bowels, constipated, diarrhea, dysphagia, difficulty swallowing, hematemesis, melena, nausea, poor appetite, poor fluid intake, rectal bleeding, rectal pain, vomiting, others Genitourinary: denies: burning, dysuria, flank pain, frequency, hematuria, incontinence, penile discharge, penile sore, pain, testicle pain, testicle swelling, urgency, others Neurological: reports: left sided weakness; denies: dizziness, fainting, headache, left sided numbness, numbness, paresthesia, pre-existing deficit, right sided numbness, right sided weakness, seizure, speech problems, tingling, tremors, weakness, others Musculoskeletal: denies: back pain, gout, joint pain, joint swelling, muscle pain, muscle stiffness, neck pain, others Integumetry: denies: bruises, change in color, change in hair/nails, dryness, laceration, lesions, lumps, rash, wounds, others Allergic/Immunocompromised: denies: Difficulty Healing, Frequent Infections, Hives, Itching, others Hematologic/Lymphatic: denies: anemia, blood clots, easy bleeding, easy br uising, swollen glands, others Endocrine: denies: excessive hunger, excessive sweating, excessive thirst, excessive urination, flushing, intolerance to cold, intolerance to heat, unexplained weight gain, unexplained weight loss, others Psychiatric: denies: anxiety, bipolar disorder, depression, hopeless, panic disorder, schizophrenia, sleepless, suicidal, others All Other Systems: Reviewed and Negative Physical Exam General Appearance: Moderate Distress HEENT: Normal ENT Inspection, Pharynx Normal, TMs Normal Neck: Full Range of Motion, Non-Tender, Normal, Normal Inspection Respiratory: Chest Non-Tender, Lungs Clear, No Accessory Muscle Use, No Respiratory Distress, Normal Breath Sounds Cardiovascular: No Edema, No JVD, No Murmur, No Gallop, Normal Peripheral Pulses, Regular Rate/Rhythm Breast Exam: Deferred Gastrointestinal: Soft, Other (Surgical scar) Genitalia: Deferred Pelvic: Deferred Rectal: Deferred Extremities: No calf tenderness, Normal capillary refill, Normal inspection, Normal range of motion, Non-tender, No pedal edema Musculoskeletal : Apperance: Normal Neurologic: Alert, nurse leader II-XII nml as Tested, No Motor Deficits, Normal Affect, Normal Mood, No Sensory Deficits Cerebellar Function: Normal Reflexes: Normal Skin: Dry, Normal Color, Warm Peripheral Pulses: 3+ Radial (R), 3+ Radial (L) Lymphatic: No Adenopathy EKG EKG : Pulse Rate (adult): 117 Cardiac Rhythm: ST Block: LBBB Was a procedure done? Was a procedure done?: No Differential Diagnosis (SZ) Seizure: Psychogenic Seizure, Closed Head Injury, CVA/TIA CVA: CVA, TIA General Weakness: Dehydration, Dysrhythmia, Electrolyte imbalance X-Ray, Labs, Meds, VS Vital Signs Date Time Temp Pulse Resp B/P (MAP) Pulse Ox O2 Delivery O2 Flow Rate FiO2 08/10/25 09:00 94 174/96 08/10/25 08:15 98.8 95 12 178/116 (136) 94 98.8 08/10/25 08:15 91 12 93 Room Air* 0 21 08/10/25 08:15 117 08/10/25 08:08 110 08/10/25 07:57 98.4 116 17 180/108 99 98.4 08/10/25 07:51 117 Lab Test 08/10/25 08:15 08/10/25 07:51 Range/Units White Blood Count 9.6 4.4-10.8 10^3/uL Red Blood Count 5.85 4.5-5.90 10^6/uL Hemoglobin 15.8 13.5-17.5 g/dL Hematocrit 46.6 41.0-53.0 % Mean Corpuscular Volume 79.6 L 80.0-100.0 fL Mean Corpuscular Hemoglobin 27.0 L 28.0-32.0 pg Mean Corpuscular Hemoglobin Concent 34.0 32.0-36.0 g/dL Red Cell Distribution Width 13.9 11.8-14.3 % Platelet Count 297 140-450 10^3/uL Mean Platelet Volume 7.6 6.9-10.8 fL Neutrophils (%) (Auto) 76.7 37.0-80.0 % Lymphocytes (%) (Auto) 13.0 10.0-50.0 % Monocytes (%) (Auto) 7.6 0.0-12.0 % Eosinophils (%) (Auto) 2.1 0.0-7.0 % Basophils (%) (Auto) 0.6 0.0-2.0 % Neutrophils # (Auto) 7.3 1.6-8.6 10 ^3/uL Lymphocytes # (Auto) 1.2 0.4-5.4 10 ^3/uL Monocytes # (Auto) 0.7 0-1.3 10 ^3/uL Eosinophils # (Auto) 0.2 0-0.8 10 ^3/uL Basophils # (Auto) 0.1 0-0.2 10 ^3/uL Nucleated Red Blood Cells 0.1 % Sodium Level 138 136-145 mmol/L Potassium Level 3.4 L 3.5-5.1 mmol/L Chloride Level 103 98-107 mmol/L Carbon Dioxide Level 23 20-31 mmol/L Anion Gap 12 5-15 Blood Urea Nitrogen 12 9-23 mg/dL Creatinine 0.83 0.700-1.30 mg/dL Glomerular Filtration Rate Calc 105 >90 mL/min BUN/Creatinine Ratio 14.5 10.0-20.0 Serum Glucose 325 H 74-106 mg/dL Hemoglobin A1c 10.1 H <5.7 % A1C Calcium Level 8.5 L 8.7-10.4 mg/dL Magnesium Level 1.8 1.6-2.6 mg/dL Troponin I High Sensitivity 7 </=54 ng/L Triglycerides Level 177 H < 150 mg/dL Cholesterol Level 184 < 200 mg/dL LDL Cholesterol 130 H < 100 mg/dL HDL Cholesterol 41 40-59 mg/dL POC Glucose 317 H 70-106 mg/dl Current Medications Medications (Trade) Dose Ordered Sig/Philomena Route Start Time Stop Time Status Last Admin Sodium Chloride 1,000 ml @ 1,000 mls/hr Q1H ONCE IV 08/10/25 08:15 08/10/25 09:14 DC 08/10/25 08:30 Aspirin 325 mg ONCE ONCE PO 08/10/25 08:15 08/10/25 08:16 DC 08/10/25 08:30 Labetalol HCl (Labetalol HCl) 10 mg ONCE ONCE IV 08/10/25 09:00 08/10/25 09:01 DC 08/10/25 09:00 Insulin Human Regular (InsuLIN R) 3 units ONCE ONCE IV 08/10/25 09:00 08/10/25 09:01 DC 08/10/25 09:32 Sodium Chloride 1,000 ml @ 1,000 mls/hr Q1H ONCE IV 08/10/25 09:00 08/10/25 09:59 DC 08/10/25 09:28 Sodium Chloride 1,000 ml @ 150 mls/hr Q6H40M ONCE IV 08/10/25 09:00 08/10/25 15:39 DC 08/10/25 09:00 Patient alert. Complaining of left side numbness pain Vitals stable. Answering questions. Blood sugar elevated. Potassium is low. Was given potassium. Establish intravenous access. Was given fluids. Was given insulin. Blood pressure elevated. Was given labetalol. Explained to the patient. Continue monitoring. Time of 1ST Reevaluation: 08:15 Reevaluation 1ST: Unchanged Patient Education/Counseling: Diagnosis, Treatment, Prognosis Family Education/Counseling: No Family Present Departure 1 Departure Time of Disposition: 08:50 Impression: Primary Impression: Uncontrolled diabetes mellitus Qualified Codes: E13.65 - Other specified diabetes mellitus with hyperglycemia Additional Impressions: Hypertensive urgency Hypokalemia TIA (transient ischemic attack) Disposition: ADMITTED INPATIENT Admit to: Med Surg Condition: Guarded Critical Care Note Critical Care Time?: Yes (90 min-critical care time only) Stability Stability form required: No Heart Score Heart Score: Heart Score Response (Comments) Value History Slightly Suspicious 0 EKG Normal 0 Age 45-64 1 Risk Factors >3 or Hx ASHD 2 Troponin Normal limit 0 Total 3 I personally scribed for CONSTANZA CLINTON MD ([email or web address]) on 08/10/25 at 08:15. Electronically submitted by Romana Dooley ([facility]). CONSTANZA CLINTON MD Aug 10, 2025 08:15
[2025-08-10] MEDS: SODIUM CHLORIDE 0.9% 1,000 ML IV ONE ×3 (08:30→09:28)
[2025-08-10 08:42] LABS: Hematocrit 46.6 % (41.0-53.0); Hemoglobin 15.8 g/dL (13.5-17.5); Mean Corpuscular Hemoglobin 27.0 pg (28.0-32.0); Mean Corpuscular Volume 79.6 fL (80.0-100.0); Nucleated Red Blood Cells % 0.1 %
[2025-08-10 08:45] LABS: Chloride 103 mmol/L (98-107); Sodium 138 mmol/L (136-145)
[2025-08-10 08:46] LABS: Anion Gap 12 (5-15); Carbon Dioxide 23 mmol/L (20-31)
[2025-08-10 08:48] LABS: Calcium 8.5 mg/dL (8.7-10.4); Potassium 3.4 mmol/L (3.5-5.1)
[2025-08-10 08:52] LABS: BUN/Creatinine Ratio 14.5 (10.0-20.0); Blood Urea Nitrogen 12 mg/dL (9-23)
[2025-08-10] MEDS: LABETALOL HCL 20 MG/4 ML VL IV ONE (09:00)
[2025-08-10 09:02] LABS: Glucose 325 mg/dL (74-106)
--- NOTE | 2025-08-10 09:22 | DVH ---
XY CHEST PORTABLE, HISTORY: sob COMPARISON: XY CHEST PORTABLE on DOS: 09/12/23, XY CHEST XRAY 1 VIEW on DOS: 07/26/23, XY CHEST XRAY 1 VIEW on DOS: 07/25/23 XY CHEST PORTABLE on DOS: 09/12/23, XY CHEST XRAY 1 VIEW on DOS: 07/26/23, XY CHEST XRAY 1 VIEW on DOS : 07/25/23 TECHNICAL DATA: 1 view of the chest was obtained. FINDINGS: Lines and tubes: Cardiac pacer is noted. Cardiomediastinal silhouette: normal Pulmonary vasculature: normal Lung expansion: normal Lung airspace: normal Lung interstitium: normal Pleura: normal Pneumothorax: no Bones: Unremarkable Other: no IMPRESSION: No acute intrathoracic abnormality.
[2025-08-10] MEDS ORDERED: VANCOMYCIN PER PHARMACY 0 MG IV SCH (09:30)
[2025-08-10] MEDS ORDERED: DEXTROSE (50%) 50ML SYRG IV PRN (09:30)
[2025-08-10] MEDS ORDERED: MORPHINE SULFATE INJ 2 MG/ml SYRG IV PRN (09:30)
[2025-08-10] MEDS: InsuLIN REG 1unit/0.01ml Soln (100units/ml) IV ONE (09:32)
[2025-08-10] MEDS: INSULIN LANTUS (GLARGINE) 1 /0.01ml (100units/ml) SC ONE (09:44)
[2025-08-10] MEDS: ATORVASTATIN 20 MG TAB PO ONE (09:45)
[2025-08-10] MEDS: PANTOPRAZOLE 40 MG TAB PO ONE (09:45)
--- NOTE | 2025-08-10 09:46 | DVH ---
CT HEAD WITHOUT CONTRAST INDICATION: tia COMPARISON: None TECHNIQUE: CT of the head without intravenous contrast. RADIATION DOSE: CTDIvol: 53.48 mGy, DLP: 53.48 mGy*cm FINDINGS: There is no evidence of acute intracranial hemorrhage, extra-axial collection, mass effect, midline s hift, herniation or hydrocephalus. The ventricles, sulci and cisterns are age appropriate. The cordero -white differentiation is intact. The visualized paranasal sinuses and mastoid air cells are clear. The surrounding soft tissues and osseous structures are unremarkable. IMPRESSION: 1. No evidence of acute intracranial hemorrhage, mass effect or hydrocephalus.
[2025-08-10] MEDS: VANCOMYCIN 1GM/250ML KIT 250 ML IV SCH (09:48)
[2025-08-10 09:52] LABS: Triglycerides 177 mg/dL (< 150)
[2025-08-10 09:53] LABS: Cholesterol 184 mg/dL (< 200); HDL Cholesterol 41 mg/dL (40-59)
[2025-08-10] MEDS: ASPirin-EC 81 mg tab PO SCH (09:56)
[2025-08-10] MEDS ORDERED: PATIENTS OWN MEDICATION (Metoprolol Succinate (Toprol Xl) 25 MG) PO SCH (10:00)
[2025-08-10] MEDS ORDERED: PATIENTS OWN MEDICATION (Amlodipine Besylate 1 TAB) PO SCH (10:00)
[2025-08-10] MEDS: LISINOPRIL 20 MG TAB PO SCH (10:19)
[2025-08-10] MEDS: PIPERACILLIN-TAZOB 3.375GM 100 ML IV ONE (10:19)
[2025-08-10] MEDS: ENOXAPARIN SOD 40 MG/0.4 ML SYRINGE SC SCH (10:19)
--- NOTE | 2025-08-10 10:47 | DVH ---
Carotid Duplex Date: 08/10/2025 10:12 AM Clinical History: TIA Comparison: None Technique: Duplex Doppler evaluation of the extracranial carotid and vertebral arteries including col or Doppler and spectral/pulsed waveform analysis was performed. Findings: RIGHT SIDE: The peak systolic velocities are 96 cm/s in the distal CCA and 113 cm/s in the proximal ICA.The ICA/C CA ratio is less than 2. The external carotid artery is patent with peak systolic velocity of 29 cm/s proximally. There is appropriate antegrade flow in the right vertebral artery. LEFT SIDE: The peak systolic velocities are 140 cm/s in the distal CCA and 86 cm/s in the proximal ICA.. The ICA /CCA ratio is less than 1. The external carotid artery is patent with peak systolic velocity of 32 cm/s proximally. There is appropriate antegrade flow in the left vertebral artery. IMPRESSION: 1. No hemodynamically significant stenosis noted in the right carotid system. 2. No hemodynamically significant stenosis noted in the left carotid system. 3. Reference: Radiology 2003; [id number]
[2025-08-10] MEDS: HYDROMORPHONE HCL 1 MG/ML INJ IV PRN (10:57)
[2025-08-10] MEDS: POTASSIUM CHL 20 Meq TABLET PO ONE (11:15)
[2025-08-10] MEDS: IOHEXOL 300 MG/ML 100ML BOTTLE IJ ONE (11:25)
--- NOTE | 2025-08-10 11:32 | DVH ---
Exam: CT CT AB PELVIS W WO CON-IV ONLY History: Abdominal fistula vs abdominal abscess Comparison Study: CT CT AB PEL WO CON-NO ORAL OR IV on DOS: 07/22/23, CT AB PEL WITH IV CON ONLY on DO S: 11/29/22, CT ABD PELVIS WO CONTRAST on DOS: 03/15/22 Technique: Multidetector spiral CT of the abdomen and pelvis was performed from lung bases to pubic s ymphysis. Initial imaging was done without IV contrast, followed by post contrast images of the abdo men and pelvis. Intravenous contrast was administered during this examination. portal venous/arteria l/multiphase imaging was obtained. Axial, coronal and sagittal multiplanar reformats were performed by the technologist on a separate workstation. Radiation Dose : CT Dose: CTDI volume is 30.0 mGy. Dose-length product is 5.3 mGy*cm Findings: Lung Bases: No acute or significant lung base finding. Normal heart size. No pleural or pericardial effusion. Liver: Hepatomegaly measuring up to 22 cm. No mass identified Gallbladder and Biliary Tree: Gallbladder is surgically absent. Spleen: Splenomegaly measuring up to 14.5 cm Pancreas: The pancreas is normal in appearance without focal lesions or abnormal enhancement. Adrenal Glands: Unremarkable Kidneys: Kidneys demonstrate normal symmetric enhancement without focal lesions, calculi or hydroneph rosis. Bladder: Unremarkable Bowel: The stomach is grossly normal in appearance. Small bowel and colon are normal in caliber and d istribution. The appendix is not visualized; however, no secondary findings of acute appendicitis id entified. Large colonic stool burden. Ascites: Absent Lymphadenopathy: No mesenteric, retroperitoneal or periportal lymphadenopathy. Abdominal Wall and Mesentery: Dense subcutaneous masslike density is seen in the left lateral pelvis measuring up to 6.9 cm. Status post ventral hernia repair with large mesh in place. Stable diastasis of the anterior abdominal wall. Vasculature: The visualized abdominal aorta is normal in size and caliber. Abdominal and pelvic vess els demonstrate normal enhancement. Pelvic Organs: Unremarkable Musculoskeletal: No aggressive focal bony lesions, acute fractures or dislocation. IMPRESSION: 1. No acute abdominal or pelvic finding. No abscess identified. 2. Hepatosplenomegaly. 3. Large colonic stool burden. 4. Status post cholecystectomy. 5. Dense subcutaneous masslike density is seen in the left lateral pelvis measuring up to 6.9 cm. Rec ommend correlation with focused ultrasound. Radiation optimization: All CT scans at this facility use at least one of these dose optimization kike hniques: automated exposure control mA and/or kV adjustment per patient size (includes targeted exam s where dose is matched to clinical indication) or iterative reconstruction.
[2025-08-10] MEDS: HYDROMORPHONE HCL 1 MG/ML INJ IV ONE (11:56)
--- NOTE | 2025-08-10 12:10 | DVHHP2 ---
History of Present Illness History of Present Illness Patient is 54-year-old male who came to the hospital with a chief complaint of left-sided weakness, sudden onset, mainly tingling in nature, no motor or sensory weakness, that prompted visit to the hospital. At home he was taking medication for hypertension and coronary artery disease with aspirin and atorvastatin. Patient never had similar kind of symptoms before. At the time of evaluation in hospital head CT scan showed no acute intracranial abnormality. Patient also complaining of left hip mass which is tender in nature, increasing size, affecting his ambulation and lifestyle. CT scan abdomen was done which showed left lateral hip mass measuring 6.8-5.1 cm. Given underlying possible stroke and left lateral hip mass, patient will be admitted to hospital for further evaluation. Past medical history: Hypertension, diabetes mellitus, dyslipidemia, coronary artery disease, CHF, Chronic obstructive pulmonary disease, sleep apnea Past surgical history: Multiple abdominal short wound, hernia repair multiple, pacemaker, appendectomy Personal history: Noncontributory Allergy: Ketorolac, penicillin, metoclopramide, nitroglycerin Home medication: Amlodipine, aspirin, atorvastatin, clonidine, clopidogrel, hydrochlorothiazide, insulin, lisinopril, metoprolol Review of Systems Constitutional: No: Fever, Chills, Sweats, Weakness, Malaise, Other Eyes: No: Pain, Vision change, Conjunctivae inflammation, Eyelid inflammation, Other, Redness ENT: No: Ear pain, Ear discharge, Nose pain, Nose discharge, Nose congestion, Mouth pain, Mouth swelling, Throat pain, Throat swelling, Other Respiratory: No: Cough, Dry, Shortness of breath, SOB with excertion, Wheezing, Hemoptysis, Pleuritic Pain, Sputum, Wheezing, Other Cardiovascular: No: Chest Pain, Palpitations, Orthopnea, Paroxysmal Noc. Dyspnea, Edema, Lt Headedness, Other Gastrointestinal: No: Nausea, Vomiting, Abdominal Pain, Diarrhea, Constipation, Melena, Hematochezia, Other Genitourinary: No Dysuria, No Frequency, No Incontinence, No Hematuria, No Retention, No Other Musculoskeletal: other (Hip pain); No: neck pain, shoulder pain, arm pain, back pain, hand pain, leg pain, foot pain Skin: No: Rash, Lesions, Jaundice, Bruising, Other Neurological: Numbness Allergies: Coded Allergies: Metoclopramide (Verified Allergy, Severe, 03/15/22) Nitroglycerin (Verified Allergy, Severe, 08/13/14) Penicillins (Verified Allergy, Severe, 03/15/22) Ketorolac (Verified Allergy, Unknown, 08/13/14) Ketorolac Tromethamine (Unverified Allergy, Unknown, 01/22/22) Prochlorperazine (Verified Allergy, Unknown, 02/19/11) Saccharin (Verified Allergy, Unknown, 02/19/11) Tromethamine (Verified Allergy, Unknown, 02/19/11) Medications Current Medications Medications Dose Ordered Sig/Philomena Route Start Time Stop Time Status Last Admin Dose Admin Morphine Sulfate 2 mg Q4HPRN PRN IV 08/10/25 09:30 Enoxaparin Sodium 40 mg DAILY SC 08/10/25 10:00 08/10/25 10:19 40 MG Atorvastatin Calcium 40 mg HS PO 08/11/25 22:00 Piperacillin Sod/ Tazobactam Sod 100 ml @ 25 mls/hr Q6HR IV 08/10/25 18:00 Vancomycin HCl 0 ml @ 0 mls/hr UD IV 08/10/25 09:30 Aspirin 81 mg DAILY PO 08/10/25 10:00 Hydrochlorothiazide 25 mg QAM PO 08/11/25 07:00 Lisinopril 20 mg DAILY PO 08/10/25 10:00 08/10/25 10:19 20 MG Pantoprazole Sodium 40 mg DAILY@0600 PO 08/11/25 06:00 Diagnostic Test (Pha) 1 strip Q6HR 08/10/25 12:00 Insulin Human Regular Q6HR SC 08/10/25 12:00 Dextrose 50 ml UD PRN IV 08/10/25 09:30 Insulin Glargine 24 units QAM SC 08/11/25 07:00 Hydromorphone HCl 0.25 mg Q4HPRN PRN IV 08/10/25 10:45 08/10/25 10:57 0.25 MG Exam Vital Signs Vital Signs Date Time Temp Pulse Resp B/P (MAP) Pulse Ox O2 Delivery O2 Flow Rate FiO2 08/10/25 12:00 98.9 77 14 128/84 (99) 93 98.9 08/10/25 08:15 Room Air* 0 21 Exam General Appearance: Cooperative. Well developed. Well nourished. NAD Head Exam: Normal inspection Neck Exam: Normal inspection. Non-tender. Normal alignment Pulmonary/Respiratory: Chest non-tender. Clear bilateral breath sounds Cardiovascular/Chest: Regular rate and rhythm. No murmurs. No JVD. Peripheral Pulses: 2+ Radial (R). 2+ Radial (L). 2+ Pedal (R). 2+ Pedal (L) Abdominal Exam: Normal bowel sounds. Soft. Nontender. No hepatospenomegaly. Left hip mass which is tender. Measuring at least 5 cm Ankle Exam: Negative ankle edema Lower extremities: Negative lower extremity edema Neuro/Mental Status: A&O x4. Coherent. Reactive pupils, all cranial nerves intact. No dysarthria. Sensation to touch and pinprick is normal. Muscle strength bilateral upper and lower extremity 5 x 5. Labs/Xrays Labs Test 08/10/25 11:04 08/10/25 09:26 08/10/25 08:15 Range/Units Lactic Acid Level 2.0 0.4-2.0 mmol/L Troponin I High Sensitivity 9 </=54 ng/L POC Glucose 283 H 70-106 mg/dl White Blood Count 9.6 4.4-10.8 10^3/uL Red Blood Count 5.85 4.5-5.90 10^6/uL Hemoglobin 15.8 13.5-17.5 g/dL Hematocrit 46.6 41.0-53.0 % Mean Corpuscular Volume 79.6 L 80.0-100.0 fL Mean Corpuscular Hemoglobin 27.0 L 28.0-32.0 pg Mean Corpuscular Hemoglobin Concent 34.0 32.0-36.0 g/dL Red Cell Distribution Width 13.9 11.8-14.3 % Platelet Count 297 140-450 10^3/uL Mean Platelet Volume 7.6 6.9-10.8 fL Neutrophils (%) (Auto) 76.7 37.0-80.0 % Lymphocytes (%) (Auto) 13.0 10.0-50.0 % Monocytes (%) (Auto) 7.6 0.0-12.0 % Eosinophils (%) (Auto) 2.1 0.0-7.0 % Basophils (%) (Auto) 0.6 0.0-2.0 % Neutrophils # (Auto) 7.3 1.6-8.6 10 ^3/uL Lymphocytes # (Auto) 1.2 0.4-5.4 10 ^3/uL Monocytes # (Auto) 0.7 0-1.3 10 ^3/uL Eosinophils # (Auto) 0.2 0-0.8 10 ^3/uL Basophils # (Auto) 0.1 0-0.2 10 ^3/uL Nucleated Red Blood Cells 0.1 % Sodium Level 138 136-145 mmol/L Potassium Level 3.4 L 3.5-5.1 mmol/L Chloride Level 103 98-107 mmol/L Carbon Dioxide Level 23 20-31 mmol/L Anion Gap 12 5-15 Blood Urea Nitrogen 12 9-23 mg/dL Creatinine 0.83 0.700-1.30 mg/dL Glomerular Filtration Rate Calc 105 >90 mL/min BUN/Creatinine Ratio 14.5 10.0-20.0 Serum Glucose 325 H 74-106 mg/dL Hemoglobin A1c 10.1 H <5.7 % A1C Calcium Level 8.5 L 8.7-10.4 mg/dL Magnesium Level 1.8 1.6-2.6 mg/dL Triglycerides Level 177 H < 150 mg/dL Cholesterol Level 184 < 200 mg/dL LDL Cholesterol 130 H < 100 mg/dL HDL Cholesterol 41 40-59 mg/dL SEPSIS Sepsis Screen Date sepsis recognized/suspect: Aug 10, 2025 Time Sepsis recognized/suspect: 814 Recent Procedure: No On Antibiotic Therapy: No Respiratory Rate >20: No Heart Rate >90: Yes Temp<36 C (96.8 F) or >38.3 C: No SBP <90 or MAP <65 mmHG: No New Acute Mental Status Change: No Is the patient on CPAP, BIPAP,: No Physician Orders Electrocardigram (08/10/25 08:06) Head Without Contrast (08/10/25 08:10) Chest Portable (08/10/25 08:10) Urinalysis (08/10/25 08:10) Sodium Chloride 0.9% (08/10/25 09:00) Admit (08/10/25 09:16) Code Status (08/10/25 09:16) Vital Signs .PER UNIT PROTOCOL (08/10/25 09:16) Review Orders With Adm. (08/10/25 09:16) Regular Diet (08/10/25 Breakfast) Notify Of Changes From Base (08/10/25 09:16) Advance Directive (08/10/25 09:16) Echo 2d Mode Cardiac Dop (08/10/25 09:16) Blood Culture (08/10/25 09:16) Patient Condition (08/10/25 09:16) Allergies (08/10/25 09:16) Drug Screen (08/10/25 09:16) Morphine Sulfate Injection (08/10/25 09:30) Enoxaparin Sodium (Lovenox) (08/10/25 10:00) * Neurology Consult (08/10/25 09:16) Carotid Duplx W Color Dop (08/10/25 09:16) * Surgical Consult (08/10/25 ) Piperacillin-Tazob 3.375gm (Zosyn 3.375g (08/10/25 18:00) Vancomycin Per Pharmacy (08/10/25 09:30) * Wound Consult (08/10/25 ) Wound Culture W/ Gs (08/10/25 09:16) Aspirin Enteric Coated Tablet (Ecotrin E (08/10/25 10:00) Hydrochlorothiazide Tablet (Hydrochlorot (08/11/25 07:00) Lisinopril Tablet (Zestril Tablet) (08/10/25 10:00) Ct L Hip With Out Contrast (08/10/25 09:24) Pantoprazole Tablet (Protonix Tablet) (08/11/25 06:00) Glucose Blood (Accu-Chek Comfort Curve T (08/10/25 12:00) Insulin R (Human) (Insulin R) (08/10/25 12:00) Dextrose 50% Syringe (08/10/25 09:30) Insulin Lantus (Glargine) (Lantus) (08/11/25 07:00) Atorvastatin (Lipitor) (08/11/25 22:00) Complete Blood Count (08/11/25 04:00) Creatinine (08/11/25 04:00) Vancomycin,Random (08/11/25 04:00) Ct Ab Pelvis W Wo Con-Iv Only (08/10/25 09:16) Hydromorphone Hcl Inj (Dilaudid Injectio (08/10/25 10:45) Vital Signs Date Time Temp Pulse Resp B/P (MAP) Pulse Ox O2 Delivery O2 Flow Rate FiO2 08/10/25 12:00 98.9 77 14 128/84 (99) 93 98.9 08/10/25 11:56 76 18 140/74 08/10/25 11:49 76 08/10/25 11:26 79 15 140/74 08/10/25 10:57 85 18 148/83 08/10/25 10:19 145/81 08/10/25 10:00 98.9 86 14 145/81 (102) 95 98.9 08/10/25 09:00 94 174/96 08/10/25 08:15 98.8 95 12 178/116 (136) 94 98.8 08/10/25 08:15 91 12 93 Room Air* 0 21 08/10/25 08:15 117 08/10/25 08:08 110 08/10/25 07:57 98.4 116 17 180/108 99 98.4 08/10/25 07:51 117 Laboratory Tests Test 08/10/25 08:15 08/10/25 11:04 White Blood Count 9.6 10^3/uL (4.4-10.8) Lactic Acid Level 2.0 mmol/L (0.4-2.0) Medications Medications Dose Ordered Sig/Philomena Route Start Time Stop Time Status Last Admin Dose Admin Aspirin 325 mg ONCE ONCE PO 08/10/25 08:15 08/10/25 08:16 DC 08/10/25 08:30 325 MG Atorvastatin Calcium 40 mg ONCE ONCE PO 08/10/25 09:30 08/10/25 09:32 DC 08/10/25 09:45 40 MG Enoxaparin Sodium 40 mg DAILY SC 08/10/25 10:00 08/10/25 10:19 40 MG Hydromorphone HCl 0.25 mg ONCE ONCE IV 08/10/25 12:00 08/10/25 12:01 DC 08/10/25 11:56 0.25 MG Hydromorphone HCl 0.25 mg Q4HPRN PRN IV 08/10/25 10:45 08/10/25 10:57 0.25 MG Insulin Glargine 25 units ONCE ONCE SC 08/10/25 09:30 08/10/25 09:32 DC 08/10/25 09:44 25 UNITS Insulin Human Regular 3 units ONCE ONCE IV 08/10/25 09:00 08/10/25 09:01 DC 08/10/25 09:32 3 UNITS Labetalol HCl 10 mg ONCE ONCE IV 08/10/25 09:00 08/10/25 09:01 DC 08/10/25 09:00 10 MG Lisinopril 20 mg DAILY PO 08/10/25 10:00 08/10/25 10:19 20 MG Pantoprazole Sodium 40 mg ONCE ONCE PO 08/10/25 09:30 08/10/25 09:32 DC 08/10/25 09:45 40 MG Piperacillin Sod/ Tazobactam Sod 100 ml @ 100 mls/hr ONCE ONCE IV 08/10/25 09:30 08/10/25 10:29 DC 08/10/25 10:19 100 MLS/HR Potassium Chloride 40 meq ONCE ONCE PO 08/10/25 10:30 08/10/25 10:35 DC 08/10/25 11:15 40 MEQ Sodium Chloride 1,000 ml @ 150 mls/hr Q6H40M ONCE IV 08/10/25 09:00 08/10/25 15:39 08/10/25 09:00 150 MLS/HR Sodium Chloride 1,000 ml @ 1,000 mls/hr Q1H ONCE IV 08/10/25 08:15 08/10/25 09:14 DC 08/10/25 08:30 1,000 MLS/HR Sodium Chloride 1,000 ml @ 1,000 mls/hr Q1H ONCE IV 08/10/25 09:00 08/10/25 09:59 DC 08/10/25 09:28 1,000 MLS/HR Vancomycin HCl 250 ml @ 250 mls/hr Q1H IV 08/10/25 09:45 08/10/25 11:44 DC 08/10/25 09:48 250 MLS/HR Assessment/Plan Assessment/Plan Rule out acute stroke Vs TIA Left hip mass Abdominal wall abscess Diabetes mellitus type 2 on insulin History of coronary artery disease Chronic obstructive pulmonary disease Sleep apnea on BiPAP Dyslipidemia Hypertension Plan/recommendation -aspirin 81 mg p.o. daily, atorvastatin 40 mg p.o. daily -neurology consultation, CT scan of head unremarkable for acute intracranial abnormality -IV antibiotic with Zosyn and vancomycin, surgical consultation for abdominal wa ll abscess -CT abdominal pelvis showed left hip mass, surgical consultation -wound consultation -home medication including aspirin, hydrochlorothiazide, lisinopril, amlodipine, metoprolol -diabetic diet -PUD prophylaxis Protonix -DVT prophylaxis with Lovenox Goals of care discussed, greater than 24 minutes, full code status. Plan discussed Dr. Greene Plan discussed with: Patient My Orders Orders - TERRI HANSON Procedure Category Date Status Time Admit ADMIT 08/10/25 Transmitted 09:16 Code Status CODE 08/10/25 Transmitted 09:16 Vital Signs MARY 08/10/25 In Process 09:16 Review Orders With [facility] 08/10/25 In Process Adm.Md 09:16 Regular Diet DIET 08/10/25 Transmitted Breakfast Notify Md Of Changes [facility] 08/10/25 In Process From Base 09:16 Advance Directive MARY 08/10/25 In Process 09:16 Echo 2d Mode Cardiac US 08/10/25 Logged DOP 09:16 Blood Culture LEIDA 08/10/25 In Process 09:16 Patient Condition ORDERS 08/10/25 Transmitted 09:16 Allergies MARY 08/10/25 In Process 09:16 Drug Screen LAB 08/10/25 Logged 09:16 Morphine Sulfate PHA 08/10/25 In Process Injection 09:30 Enoxaparin Sodium PHA 08/10/25 In Process (Lovenox) 10:00 * Neurology Consult CONS 08/10/25 Transmitted 09:16 Carotid Duplx W Color US 08/10/25 Resulted DOP 09:16 * Surgical Consult CONS 08/10/25 Transmitted Piperacillin-Tazob PHA 08/10/25 In Process 3.375gm (Zosyn 3.375g 18:00 Vancomycin Per PHA 08/10/25 In Process Pharmacy 09:30 * Wound Consult CONS 08/10/25 Transmitted Wound Culture W/ Gs LEIDA 08/10/25 In Process 09:16 Aspirin Enteric PHA 08/10/25 In Process Coated Tablet 10:00 Hydrochlorothiazide PHA 08/11/25 In Process Tablet (Hydrochlorot 07:00 Lisinopril Tablet PHA 08/10/25 In Process (Zestril Tablet) 10:00 Ct L Hip With Out CT 08/10/25 Taken Contrast 09:24 Pantoprazole Tablet PHA 08/11/25 In Process (Protonix Tablet) 06:00 Glucose Blood PHA 08/10/25 In Process (Accu-Chek Comfort 12:00 Insulin R (Human) PHA 08/10/25 In Process (Insulin R) 12:00 Dextrose 50% Syringe PHA 08/10/25 In Process 09:30 Insulin Lantus PHA 08/11/25 In Process (Glargine) (Lantus) 07:00 Atorvastatin (Lipitor) PHA 08/11/25 In Process 22:00 Complete Blood Count LAB 08/11/25 Verified 04:00 Creatinine LAB 08/11/25 Verified 04:00 Vancomycin,Random LAB 08/11/25 Verified 04:00 Ct Ab Pelvis W Wo CT 08/10/25 Resulted Con-Iv Only 09:16 Hydromorphone Hcl Inj PHA 08/10/25 In Process (Dilaudid Injectio 10:45 Date of Service: Aug 10, 2025 Billing Provider: DELORES GREENE MD Common Visit Codes: 76709-[id number] INP/OBS CARE (HIGH) Secondary Visit Codes: [id number] CARE PLAN 30 MINUTES TERRI HANSON RESIDENT Aug 10, 2025 12:10
[2025-08-10] MEDS: ACCU-CHEK COMFORT CURVE STRIP VI SCH (12:19)
[2025-08-10] MEDS: InsuLIN REG 1unit/0.01ml Soln (100units/ml) SC SCH (12:21)
--- NOTE | 2025-08-10 12:22 | DVH ---
INDICATION: left hip mass COMPARISON: CT CT AB PELVIS W WO CON-IV ONLY on DOS: 08/10/25, CT CT AB PEL WO CON-NO ORAL OR IV on D OS: 07/22/23 TECHNIQUE: CT of the left hip was performed without contrast. Volume transverse images were obtained and reconstructed in multiple planes using bone and soft tissue algorithms. Radiation Dose Information: CT Dose: CTDI volume is 22.3 mGy. Dose-length product is 4089 mGy*cm FINDINGS: The alignment is normal. The joint spaces are normal. There is no fracture, dislocation or aggressive osseous lesion. There is no joint effusion. Subcutaneous heterogeneous mass is seen in the left lateral hip measuring 6.8 x 5.1 cm. IMPRESSION: 1. Subcutaneous heterogeneous mass is seen in the left lateral hip measuring 6.8 x 5.1 cm. Consider c orrelation with focused ultrasound. All CT scans at this medical facility are performed using dose modulation techniques as appropriate t o a performed exam including the following: Automated exposure control was utilized; adjustment of th e MA and/or KV according to patient size; and use of iterative reconstruction technique.
--- NOTE | 2025-08-10 15:03 | DVH ---
EXAM: US LEFT LOWER EXTREMITY ULTRASOUN DATE OF SERVICE: 08/10/2025 01:47 PM ORDERING PHYSICIAN: TERRI HANSON RESIDENT REASON FOR EXAM: left hip mass TECHNIQUE: Multiple grayscale sonographic images of the area of concern of the left hip were acquire d with a high-frequency probe in longitudinal and transverse planes. Color Doppler imaging was also p erformed. COMPARISON: None FINDINGS: There is an approximately 7.0 x 3.9 x 6.7 cm heterogeneously hypoechoic lobulated, circums cribed mass in the superficial fat at the left hip, just deep to the skin and superficial fascia. The re are echogenic islands within the mass suggestive of fat. No free fluid is identified. There is n o fluid collection. IMPRESSION: Heterogeneous vascular mass in the subcutaneous fat at the left hip Differential diagnosis includes s arcoma/liposarcoma. Surgical consultation is recommended.
--- NOTE | 2025-08-10 16:19 | DVHSR ---
APPROVED REPORT EXAM: Two-dimensional and M-mode echocardiogram with Doppler and color Doppler. Blood Pressure: 174/96 mmHg INDICATION CVA/TIA: RISK FACTORS Obesity: Height: 5' 11", Weight: 245 DIMENSIONS LVDd5.0 (3.8-5.7cm)LA (2D)3.9 (1.9-4.0cm)Aortic Root4.1 (2.0-3.7cm) LVDs3.7 (2.5-4.0cm)LA (MM) (1.9-4.0cm)Aortic Cusp Exc1.9 (1.5-2.0cm) EF (%) 52.0 (55-70%)Rt. Atrium4.3 (1.9-4.0cm)Asc. Aorta cm IVSd1.3 (0.7-1.1cm)RV (D) (1.8-2.4cm) PWd1.2 (0.7-1.1cm) Mitral Valve MitralMitral Stenosis E wave0.80m/sMV Mean GR.mmHg A wave1.10m/sMV Peak GR.mmHg E/A ratio0.72D MVAcm2 Aortic Valve Aortic ValveAortic Stenosis V11.10m/Isiah Mean GR.5mmHg V21.60m/Isiah Peak GR.10mmHg LVOT Diameter2.4 (1.8-2.4cm)Doppler AVA3.11cm2 Pulmonic Valve V20.90m/s Tricuspid Valve TR Velocity2.30m/s [id number] Conclusion Sinus rhythm. LV enlargement. Concentric LVH. Biatrial enlargement. Mild mitral annular calcification of the base of the posterior mitral leaflet. Left ventricular function is preserved at 60% with normal RV function. Doppler reveals mild TR. Right ventricular systolic pressure of25 mmHg. No pericardial effusion masses or vegetations.
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
[2025-08-10] MEDS ORDERED: LORazepam 2MG/ML-1ML VIAL IV PRN (17:15)
[2025-08-10] MEDS: PIPERACILLIN-TAZOB 3.375GM 100 ML IV SCH (17:55)
[2025-08-10 22:41] LABS: Amphetamine Screen, Urine Neg (NEGATIVE); Barbiturate Scree,Urine Neg (NEGATIVE); Benzodiazephine Screen, Urine Neg (NEGATIVE); Cannabinoid Screen, Urine Neg (NEGATIVE); Cocaine Screen, Urine Neg (NEGATIVE); Opiate Scree,Urine Neg (NEGATIVE); Phencyclidine Screen, Urine Neg (NEGATIVE)
[2025-08-10 22:44] LABS: Urine Protein, UAD 1+ (Negative)
[2025-08-11 01:00] VITALS: BP 142/85; PULSE 65; RESP 18; TEMP 98.4; O2SAT 94
[2025-08-11 03:28] VITALS: PULSE 59; O2SAT 98
[2025-08-11 05:00] VITALS: BP 132/90; PULSE 68; RESP 18; TEMP 98.1; O2SAT 99
[2025-08-11] MEDS: INSULIN LANTUS (GLARGINE) 1 /0.01ml (100units/ml) SC SCH (06:33)
[2025-08-11] MEDS: PANTOPRAZOLE 40 MG TAB PO SCH (06:34)
[2025-08-11] MEDS: hydroCHLOROthiazide 25 MG TAB PO SCH (06:35)
[2025-08-11 07:25] VITALS: PULSE 78; O2SAT 97
[2025-08-11 08:04] LABS: Hemoglobin 14.0 g/dL (13.5-17.5)
[2025-08-11 08:11] LABS: Hematocrit 41.8 % (41.0-53.0); Mean Corpuscular Hemoglobin 26.8 pg (28.0-32.0); Mean Corpuscular Volume 79.7 fL (80.0-100.0); Nucleated Red Blood Cells % 0.1 %
[2025-08-11 09:00] VITALS: BP 138/82; PULSE 81; RESP 18; TEMP 97.8; O2SAT 95
[2025-08-11 09:24] VITALS: BP 128/84; PULSE 66; RESP 18
--- NOTE | 2025-08-11 10:31 | DVHPN2 ---
Progress Note - Dictate Date Seen: Aug 11, 2025 Medical Necessity Reason Pt with a Central, PICC or Fol: No Subjective Mr. Valdes is a 54 years old left-handed gentleman with a history of hypertension, diabetes, dyslipidemia, coronary artery disease, heart attack, congestive heart failure, COPD, obesity, sleep apnea on CPAP, he came to the [facility] on 08/10/2025 with a chief complaint of left-sided weakness I have examined the patient, talked to his nurse, he is doing fine, alert and fully oriented no new complaints He reports good experience with CPAP overnight RE: He wants to leave AMA UDS, 08/10/2025: Negative CBC, 08/10/2025: Unremarkable BMP 08/10/2025: Unremarkable HGB A1c, 08/10/2025: 10.1 TBI/AST/ALT/AP, 09/14/2023: 1.2/102/25/152 TG/HDL/LDL/HDL, 08/10/2025: 177/184/130/41 Echocardiogram, 08/10/2025: Sinus rhythm. LV enlargement. Concentric LVH. Biatrial enlargement. Mild mitral annular calcification of the base of the posterior mitral leaflet. Left ventricular function is preserved at 60% with normal RV function. Doppler reveals mild TR. Right ventricular systolic pressure of25 mmHg. No pericardial effusion masses or vegetations. Carotid Doppler, 08/10/2025: 1. No hemodynamically significant stenosis noted in the right carotid system. 2. No hemodynamically significant stenosis noted in the left carotid system CTA head, 08/10/2025: No evidence of acute intracranial hemorrhage, mass effect or hydrocephalus CT, left hip, 08/10/2025: Subcutaneous heterogeneous mass is seen in the left lateral hip measuring 6.8 x 5.1 cm. Consider correlation with focused ultrasound. vital signs Vital Sign Date Time Temp Pulse Resp B/P (MAP) Pulse Ox O2 Delivery O2 Flow Rate FiO2 08/11/25 09:24 66 18 128/84 08/11/25 09:00 97.8 95 97.8 08/11/25 07:25 Facial BiPAP Mask 08/11/25 07:25 0.0 08/11/25 07:25 21 Total Intake and Output 08/10/25 08/10/25 08/11/25 15:00 23:00 07:00 Intake Total 100 ml 1240 ml 100 ml Balance 100 ml 1240 ml 100 ml medications Current Medications Medications Dose Ordered Sig/Philomena Route Start Time Stop Time Status Last Admin Dose Admin Morphine Sulfate 2 mg Q4HPRN PRN IV 08/10/25 09:30 Enoxaparin Sodium 40 mg DAILY SC 08/10/25 10:00 08/11/25 08:47 40 MG Atorvastatin Calcium 40 mg HS PO 08/11/25 22:00 Piperacillin Sod/ Tazobactam Sod 100 ml @ 25 mls/hr Q6HR IV 08/10/25 18:00 08/11/25 05:16 25 MLS/HR Vancomycin HCl 0 ml @ 0 mls/hr UD IV 08/10/25 09:30 Aspirin 81 mg DAILY PO 08/10/25 10:00 08/11/25 08:47 81 MG Hydrochlorothiazide 25 mg QAM PO 08/11/25 07:00 08/11/25 06:35 25 MG Lisinopril 20 mg DAILY PO 08/10/25 10:00 08/11/25 08:46 20 MG Pantoprazole Sodium 40 mg DAILY@0600 PO 08/11/25 06:00 08/11/25 06:34 40 MG Diagnostic Test (Pha) 1 strip Q6HR 08/10/25 12:00 08/11/25 06:00 1 STRIP Insulin Human Regular Q6HR SC 08/10/25 12:00 08/11/25 06:33 2 UNITS Dextrose 50 ml UD PRN IV 08/10/25 09:30 Insulin Glargine 24 units QAM SC 08/11/25 07:00 08/11/25 06:33 24 UNITS Hydromorphone HCl 0.25 mg Q4HPRN PRN IV 08/10/25 10:45 08/11/25 08:54 0.25 MG Vancomycin HCl 250 ml @ 250 mls/hr Q1H IV 08/11/25 11:00 08/11/25 12:59 objective General: the patient is well developed and nourished. No acute distress. MENTAL STATUS: Subjective SPEECH, LANGUAGE, HIGHER CORTICAL FUNCTION: no aphasia or dysathria. CRANIAL NERVES: Pupils are equal, round and reactive. EOMs full and conjugate. No nystagmus. Facial sensation intact in all three divisions bilaterally. Mandibular strength intact. Mild left facial weakness of upper motor neuron pattern. Tongue midline. No fasciculations or atrophy. SENSATION: Sensation to touch and pinprick is normal. MOTOR: Normal tone in the upper and lower extremity. Normal muscle bulk. No fasciculations. No abnormal movements or posturing. Muscle strength of the major groups in the right extremities is 5/5. Muscle strength of the major groups in the left extremities is close to 5/5, with left arm drift. REFLEXES: Deep tendon reflexes are symmetrical. No pathological reflexes. CEREBELLAR/COORDINATION: Finger to nose and heel to barrera are normal bilaterally. GAIT/STATION: deferred. laboratory and microbiology Laboratory Tests 08/11/25 06:47 08/10/25 08:15 Test 08/10/25 08:15 Range/Units Serum Glucose 325 H 74-106 mg/dL Problem List Left paresthesia, left hemiparesis Rule out acute stroke Obesity, obstructive sleep apnea Multiple stroke risk factors Assessment/Plan Monitoring Supportive treatment Telemetry MRI head Aspirin 81 mg daily Lipitor 40 mg daily CPAP 14 cm H2O Stroke risk fact discussed Lifestyle discussed Secondary stroke prevention discussed Will advise him to stay for stroke workup again More recommendation per clinical course This medical document was created using an electronic medical record system with [employer] dictation system. Although this document has been carefully reviewed, there may still be some phonetic and typographical errors. These areas are purely typographical due to imperfections of the software programs, and do not reflect any compromise in the patient's medical care Prognosis poor Plan discussed with: Patient, Other Total Time (mins): 35 LEIDA BOJORQUEZ MD Aug 11, 2025 10:31
[2025-08-11] MEDS ORDERED: VANCOMYCIN 1GM/250ML KIT 250 ML IV SCH (11:00)
--- NOTE | 2025-08-11 13:54 | DVHDS2 ---
Discharge Summary Date of Admission Aug 10, 2025 at 09:16 Date of Discharge: Aug 11, 2025 Labs/Diagnostic Data: Laboratory Results Test 08/11/25 06:47 08/11/25 06:24 08/10/25 22:00 08/10/25 11:04 White Blood Count 8.3 10^3/uL (4.4-10.8) Red Blood Count 5.24 10^6/uL (4.5-5.90) Hemoglobin 14.0 g/dL (13.5-17.5) Hematocrit 41.8 % (41.0-53.0) Mean Corpuscular Volume 79.7 fL (80.0-100.0) Mean Corpuscular Hemoglobin 26.8 pg (28.0-32.0) Mean Corpuscular Hemoglobin Concent 33.6 g/dL (32.0-36.0) Red Cell Distribution Width 14.4 % (11.8-14.3) Platelet Count 286 10^3/uL (140-450) Mean Platelet Volume 7.7 fL (6.9-10.8) Neutrophils (%) (Auto) 75.0 % (37.0-80.0) Lymphocytes (%) (Auto) 14.5 % (10.0-50.0) Monocytes (%) (Auto) 7.1 % (0.0-12.0) Eosinophils (%) (Auto) 2.9 % (0.0-7.0) Basophils (%) (Auto) 0.5 % (0.0-2.0) Neutrophils # (Auto) 6.2 10 ^3/uL (1.6-8.6) Lymphocytes # (Auto) 1.2 10 ^3/uL (0.4-5.4) Monocytes # (Auto) 0.6 10 ^3/uL (0-1.3) Eosinophils # (Auto) 0.2 10 ^3/uL (0-0.8) Basophils # (Auto) 0 10 ^3/uL (0-0.2) Nucleated Red Blood Cells 0.1 % Creatinine 0.67 mg/dL (0.700-1.30) Glomerular Filtration Rate Calc 112 mL/min (>90) Random Vancomycin Level < 3.0 ug/mL (5-10) POC Glucose 149 mg/dl (70-106) Urine Color Yellow (Yellow) Urine Clarity Clear (Clear) Urine pH 6.0 (5.0-9.0) Urine Specific [place] 1.042 (1.001-1.035) Urine Protein 1+ (Negative) Urine Ketones Negative (Negative) Urine Blood Negative /uL (Negative) Urine Nitrite Negative (Negative) Urine Bilirubin Negative (Negative) Urine Urobilinogen 2 mg/dL (Negative) Urine Leukocyte Esterase Negative /uL (Negative) Urine RBC None seen /hpf (0 - 3) Urine Microscopic WBC < 1 /HPF (0-3) Urine Squamous Epithelial Cells None seen /hpf (<5) Urine Calcium Oxalate Crystals Few (None Seen) Urine Bacteria None seen /hpf (None Seen) Urine Glucose 4+ mg/dL (Normal) Urine Opiates Screen Neg (NEGATIVE) Urine Fentanyl Screen Neg (NEGATIVE) Urine Barbiturates Screen Neg (NEGATIVE) Urine Phencyclidine Screen Neg (NEGATIVE) Urine Amphetamines Screen Neg (NEGATIVE) Urine Benzodiazepines Screen Neg (NEGATIVE) Urine Cocaine Screen Neg (NEGATIVE) Urine Cannabinoids Screen Neg (NEGATIVE) Lactic Acid Level 2.0 mmol/L (0.4-2.0) Troponin I High Sensitivity 9 ng/L (</=54) Test 08/10/25 08:15 Sodium Level 138 mmol/L (136-145) Potassium Level 3.4 mmol/L (3.5-5.1) Chloride Level 103 mmol/L (98-107) Carbon Dioxide Level 23 mmol/L (20-31) Anion Gap 12 (5-15) Blood Urea Nitrogen 12 mg/dL (9-23) BUN/Creatinine Ratio 14.5 (10.0-20.0) Serum Glucose 325 mg/dL (74-106) Hemoglobin A1c 10.1 % A1C (<5.7) Calcium Level 8.5 mg/dL (8.7-10.4) Magnesium Level 1.8 mg/dL (1.6-2.6) Triglycerides Level 177 mg/dL (< 150) Cholesterol Level 184 mg/dL (< 200) LDL Cholesterol 130 mg/dL (< 100) HDL Cholesterol 41 mg/dL (40-59) Other Laboratory Tests 08/11/25 06:47 08/10/25 08:15 Brief Hx & Hospital Course: 54 y.o male with PMHx of HTN, DM, PTCA, presents to the ED for a chief complaint of left sided numbness and tingling sensation s/p having a coughing fit this morning around 0700. Patient was ambulatory upon ED arrival and presents with no vision changes, slurred speech, nausea, vomiting, or chest pain. Patient also complains of left hip pain that has been ongoing for a while. Initial BP read 180/108. Patient is non compliant with medication as he ran out one year ago and cannot afford them. Diagnosis: TIA, acute, Uncontrolled diabetes mellitus Intravascular volume depletion Glucosuria Left pelvic mass, questionable. history of hypertension, dyslipidemia, coronary artery disease, heart attack, congestive heart failure, COPD, obesity, sleep apnea on CPAP, Plan: Patient left AMA, assuming all risks including Condition at Discharge: Undetermined Final Diagnosis/Problems List TIA, acute, Uncontrolled diabetes mellitus Intravascular volume depletion Glucosuria Left pelvic mass, questionable. history of hypertension, dyslipidemia, coronary artery disease, heart attack, congestive heart failure, COPD, obesity, sleep apnea on CPAP, Discharge Disposition: AMA Discharge Instruct/Medications Scheduled Amlodipine Besylate (Amlodipine Besylate), 1 TAB PO DAILY, (Reported) Aspirin (Aspirin Low Dose), 81 MG PO DAILY Atorvastatin Calcium (Atorvastatin Calcium), 1 TAB PO DAILY, (Reported) Atorvastatin Calcium (Atorvastatin Calcium), 80 MG PO QPM Clonidine Hydrochloride (Clonidine Hcl), 0.1 MG PO TIDPRN, (Reported) Clopidogrel Bisulfate (Clopidogrel), 75 MG PO DAILY Gabapentin (Gabapentin), 600 MG PO TID Hctz (Hydrochlorothiazide), 1 TAB PO QAM, (Reported) Insulin Glargine (Toujeo Max Solostar), 55 UNIT SC HS, (Reported) Insulin Lispro (Insulin Lispro Kwikpen), 14 UNIT SC TIDWM, (Reported) Lisinopril (Lisinopril), 1 TAB PO DAILY, (Reported) Lisinopril (Lisinopril), 10 MG PO DAILY Metoprolol Succinate (Toprol Xl), 25 MG PO DAILY Discharge Statement: "Patient was advised to return to the ER or call 911 if any headaches, dizziness, shortness of breath, chest pain, abdominal pain, bleeding, fevers, or worsening of medical condition. Patient was counseled about treatment plan, medications, possible side effects, patientverbalized understanding. All questions were answered to the best of my ability. This discharge took greater then 30 minutes in planning, reviewing documentation, counseling the patient, and discussing with other team members." ASSESSMENT ASSESSMENT Assessment Date of Service: Aug 11, 2025 Billing Provider: MARCELO ARAIZA MD Common Visit Codes: NOT BILLABLE MARCELO ARAIZA MD Aug 11, 2025 13:54
[2025-08-11] MEDS ORDERED: ATORVASTATIN 20 MG TAB PO SCH (22:00)
--- NOTE | 2025-08-12 00:23 | ECG ---
[facility] Test Date: 2025-08-10 Test Time: 07:51:59 Pat Name: ELVIS SIMS Department: ED Room: 0298 Gender: M Due Diligence Coordinator: QUENTIN : 1970 Requested By: CONSTANZA CLINTON Order Number: [id number] Reading MD: Measurements Intervals [place] Rate: 117 P: 50 DC: 148 QRS: 256 QRSD: 96 T: 53 QT: 344 QTc: 480 Interpretive Statements Sinus tachycardia Probable left atrial enlargement Probable inferior infarct, acute Anterior infarct, old Baseline wander in lead(s) II,III,aVF Please click the below link to view image of tracing.
== END 2025-08-11 10:53 | disposition left against medical advice (07) | DRG 637 ==
LOC: ER 07:47 → OVERFLOW 09:16 → WEST WING 09:22
PROVIDERS: ADMIT Student in an Organized Health Care Education/Training Program; ATTEND Student in an Organized Health Care Education/Training Program
PROC: 5A09357 Assistance with Respiratory Ventilation, Less than 24 Consecutive Hours, Continuous Positive Airway Pressure (ICD-10-PCS; principal; 2025-08-10)
PROC: 5A09357 Assistance with Respiratory Ventilation, Less than 24 Consecutive Hours, Continuous Positive Airway Pressure (ICD-10-PCS; 2025-08-11)
DX: E11.65 Type 2 diabetes mellitus with hyperglycemia (principal); I21.9 Acute myocardial infarction, unspecified; G45.9 Transient cerebral ischemic attack, unspecified; G81.94 Hemiplegia, unspecified affecting left nondominant side; G47.33 Obstructive sleep apnea (adult) (pediatric); E86.9 Volume depletion, unspecified; R19.00 Intra-abdominal and pelvic swelling, mass and lump, unspecified site; E66.9 Obesity, unspecified; Z68.34 Body mass index [BMI] 34.0-34.9, adult; E78.5 Hyperlipidemia, unspecified; E87.6 Hypokalemia; F17.200 Nicotine dependence, unspecified, uncomplicated; I11.0 Hypertensive heart disease with heart failure; I16.0 Hypertensive urgency; I25.10 Atherosclerotic heart disease of native coronary artery without angina pectoris; I25.2 Old myocardial infarction; I34.81 Nonrheumatic mitral (valve) annulus calcification; I50.9 Heart failure, unspecified; J44.9 Chronic obstructive pulmonary disease, unspecified; E11.9 Type 2 diabetes mellitus without complications; Z53.29 Procedure and treatment not carried out because of patient's decision for other reasons; Z79.82 Long term (current) use of aspirin; Z79.899 Other long term (current) drug therapy; Z80.3 Family history of malignant neoplasm of breast; Z82.3 Family history of stroke; Z82.49 Family history of ischemic heart disease and other diseases of the circulatory system; Z83.3 Family history of diabetes mellitus; Z88.0 Allergy status to penicillin; Z88.8 Allergy status to other drugs, medicaments and biological substances; Z91.148 Patient's other noncompliance with medication regimen for other reason; Z90.49 Acquired absence of other specified parts of digestive tract
CPT/HCPCS: 36415; 70450; 71045; 73700; 74178; 80048; 80061; 80202; 80307; 81001; 82565; 82962; 83036; 83605; 83735; 84484; 85025; 87040; 87081; 87205; 93005; 93306; 93886; 93926; 94660; 96361; 96374; 99291; 99292; G0378; J1815; J2543